=== PATIENT | male | born 1945 | race Caucasian/White ===

== ENCOUNTER → 2017-04-26 | Outpatient (CLI) | payer MEDICARE, OTHER, SELFPAY | PROVIDERS: Visit Provider Urology | DX: C61 Malignant neoplasm of prostate (principal); Z12.5 Encounter for screening for malignant neoplasm of prostate | CPT/HCPCS: 36415; G0103 ==

== ENCOUNTER → 2017-05-03 10:42 | Outpatient (CLI) | payer MEDICARE, OTHER, SELFPAY ==
--- NOTE | 2017-05-03 11:02 | XR_ITS ---
XR knee RT 3V HISTORY: ITS.REASON: ACUTE RT KNEE PAIN ORDERING PHYSICIAN: Jhonny Gillette MD PATIENT AGE: 71 years COMPARISON: None FINDINGS: No fracture or dislocation. No lytic or blastic change. Normal mineralization. There are minimal osteoarthritic changes of the medial compartment and patellofemoral joint. Small clip is present along the distal thigh medially and posteriorly IMPRESSION: Minimal osteoarthritic change, no acute finding
== END ==
PROVIDERS: PCP Family Medicine; Visit Provider Family Medicine
DX: M25.561 Pain in right knee (principal)
CPT/HCPCS: 73562

== ENCOUNTER → 2017-06-09 13:47 | Outpatient (CLI) | payer MEDICARE, OTHER, SELFPAY ==
--- NOTE | 2017-06-09 13:59 | CT_ITS ---
CT abdomen pelvis wo con CLINICAL INDICATION: Right flank pain ITS.REASON: RT FLANK PAIN ORDERING PHYSICIAN: Anthony Lopes MD PATIENT AGE: 71 years COMPARISON: None TECHNIQUE: Axial images obtained with sagittal and coronal reformats. PROCEDURE: Oral Contrast: None IV Contrast: None . FINDINGS: There is a 5 mm noncalcified subpleural nodule in the left lung base posterolaterally along with a calcified subpleural nodule in the left lung base anteriorly and laterally. Fatty liver infiltration. No calcified gallstones. The spleen, adrenal glands, and pancreas are unremarkable. No renal mass, hydronephrosis, renal or ureteral calculi evident. The urinary bladder has an unremarkable appearance. No retroperitoneal adenopathy or mass. No intestinal obstruction, free air, or focal peritoneal inflammatory change evident. There is a given history of appendectomy. No acute bony anomalies. There is a lipoma along the lower anterior chest wall and the right IMPRESSION: No acute abdominal or pelvic findings. No evidence of renal or ureteral calculi. Indeterminate 5 mm left lower lobe nodule. Consider 6 month follow-up.
== END ==
PROVIDERS: Family Provider Family Medicine; PCP Family Medicine; Visit Provider Urology
DX: R10.31 Right lower quadrant pain (principal)
CPT/HCPCS: 74176

== ENCOUNTER → 2017-11-03 10:17 | Outpatient (CLI) | payer MEDICARE, OTHER, SELFPAY ==
[2017-11-03 12:31] LABS: Prostate Specific Ag Screen < 0.1 ng/mL (0.0-4.0)
== END ==
PROVIDERS: Visit Provider Urology
DX: Z12.5 Encounter for screening for malignant neoplasm of prostate (principal); C61 Malignant neoplasm of prostate
CPT/HCPCS: 36415; G0103

== ENCOUNTER → 2018-05-07 15:24 | Outpatient (CLI) | payer MEDICARE, OTHER, SELFPAY ==
--- NOTE | 2018-05-07 15:33 | XR_ITS ---
XR chest 2V HISTORY: ITS.REASON: BRONCHITIS ORDERING PHYSICIAN: Evangelina Gillette MD PATIENT AGE: 72 years COMPARISON: 08/07/2015 FINDINGS: There has been a prior CABG. Normal heart size. The lungs are clear without infiltrates, suspicious nodules, or pleural effusions. No acute bony abnormalities. IMPRESSION: No change with no acute finding
== END ==
PROVIDERS: PCP Family Medicine; Visit Provider Family Medicine
DX: J40 Bronchitis, not specified as acute or chronic (principal)
CPT/HCPCS: 71046

== ENCOUNTER → 2018-05-15 09:00 | Outpatient (CLI) | payer MEDICARE, OTHER, SELFPAY ==
--- NOTE | 2018-05-15 09:03 | CI_ITS ---
Cerebrovascular Exam Indications: 780.4 Dizziness and giddiness. IMPRESSIONS 1. The bilateral vertebral arteries are patent with normal antegrade flow. 2. Study suggests 20-49% stenosis involving the right internal carotid artery. 3. Study suggests less than 20% stenosis. No change from the study of 12-Oct-2009. History: Coronary artery disease. Coronary artery disease. Risk factors: Hypertension. Hyperlipidemia. Carotid duplex study. Complete study and Doppler flow study including spectral analysis, color and mohan scale imaging. Height: Height: 167.6cm. Height: 66in. Weight: Weight: 97.5kg. Weight: 214.6lb. Body mass index: BMI: 34.7kg/m^2. Body surface area: BSA: 2.17m^2. Location: Vascular laboratory. Patient status: Outpatient. Tables: Arterial flow: + +--------+--------+ Location V sys V ed + +--------+--------+ Right CCA - proximal 84.1cm/s 18.1cm/s + +--------+--------+ Right CCA - distal 113cm/s 19.6cm/s + +--------+--------+ Right ECA 145cm/s -------- + +--------+--------+ Right ICA - proximal 86.4cm/s 25.9cm/s + +--------+--------+ Right ICA - mid 64.4cm/s 22cm/s + +--------+--------+ Right ICA - distal 77.8cm/s 19.6cm/s + +--------+--------+ Right vertebral 44.8cm/s -------- + +--------+--------+ Left CCA - proximal 116cm/s 17.3cm/s + +--------+--------+ Left CCA - distal 83.3cm/s 22cm/s + +--------+--------+ Left ECA 121cm/s -------- + +--------+--------+ Left ICA - proximal 91.9cm/s 29.9cm/s + +--------+--------+ Left ICA - mid 80.9cm/s 24.4cm/s + +--------+--------+ Left ICA - distal 83.3cm/s 25.9cm/s + +--------+--------+ Left vertebral 44.8cm/s -------- + +--------+--------+ Velocity ratios: + + + + + + Right, V sys Right, V ed Left, V sys Left, V ed + + + + + + Max ICA/dist CCA 0.76 1.32 1.1 1.36 + + + + + + (Report amended ) Electronically signed by: Hany Rivera [id number]
== END ==
PROVIDERS: PCP Family Medicine; Visit Provider Family Medicine
DX: I65.23 Occlusion and stenosis of bilateral carotid arteries (principal)
CPT/HCPCS: 93880

== ENCOUNTER → 2018-05-31 10:13 | Outpatient (CLI) | payer MEDICARE, OTHER, SELFPAY ==
[2018-05-31 12:57] LABS: Prostate Specific Ag, Diagnost < 0.05 ng/mL (0.0-4.0)
== END ==
PROVIDERS: Visit Provider Urology
DX: C61 Malignant neoplasm of prostate (principal)
CPT/HCPCS: 36415; 84153

== ENCOUNTER → 2018-10-08 09:39 | Outpatient (CLI) | payer MEDICARE, OTHER, SELFPAY ==
[2018-10-08 11:41] LABS: Prostate Specific Ag, Diagnost < 0.05 ng/mL (0.0-4.0)
== END ==
PROVIDERS: Visit Provider Urology
DX: C61 Malignant neoplasm of prostate (principal)
CPT/HCPCS: 36415; 84153

== ENCOUNTER → 2019-04-18 11:02 | Outpatient (CLI) | payer MEDICARE, OTHER, SELFPAY ==
[2019-04-18 13:48] LABS: Prostate Specific Ag, Diagnost 0.05 ng/mL (0.0-4.0)
== END ==
PROVIDERS: Visit Provider Urology
DX: Z85.46 Personal history of malignant neoplasm of prostate
CPT/HCPCS: 36415; 84153

== ENCOUNTER → 2020-04-01 10:25 | Outpatient (CLI) | payer MEDICARE, OTHER, SELFPAY ==
--- NOTE | 2020-04-01 10:32 | XR_ITS ---
PROCEDURE: XR HIP LT 2-3V W/PELVIS CLINICAL INDICATION: ARTHROPATHY Hip pain COMPARISON: No exams were available for comparison FINDINGS: There are mild osteoarthritic changes of the left hip. No fracture or dislocation. No lytic or blastic change. IMPRESSION: Mild osteoarthritis of the left hip Dictated by: Hany Rivera MD 04/01/2020 18:29 Hany Rivera MD in [facility] 04/01/2020 18:29
--- NOTE | 2020-04-01 10:32 | XR_ITS ---
PROCEDURE: XR HIP RT 2-3V W/PELVIS CLINICAL INDICATION: ARTHROPATHY Bilateral hip pain COMPARISON: No exams were available for comparison FINDINGS: There are mild osteoarthritic changes of the right hip. No acute fracture or dislocation. No lytic or blastic change. IMPRESSION: Mild osteoarthritis of the right hip Dictated by: Hany Rivera MD 04/01/2020 18:29 Hany Rivera MD in [facility] 04/01/2020 18:29
== END ==
PROVIDERS: PCP Family Medicine; Visit Provider Family Medicine
DX: M25.552 Pain in left hip (principal); M25.551 Pain in right hip; M12.9 Arthropathy, unspecified
CPT/HCPCS: 73502

== ENCOUNTER → 2020-04-06 10:31 | Outpatient (CLI) | payer MEDICARE, OTHER, SELFPAY ==
--- NOTE | 2020-04-06 10:36 | US_ITS ---
APPROVED REPORT Exam Type: Lower Extremity Segmental Pressures Mandarin Teacher: Charisma Lester CRT Indications Claudication: Limb Pain: Rest Pain: Numbness/Tingling Cold Sensitivity PAD CAD Risk Factors Hypertension Hyperlipidemia Obesity Surgery/Intervention cabg Pressures/Indices Right Indices Left Indices Brachial 142.00 mmHg Brachial 151.00 mmHg Low Thigh 133.00 mmHg 0.88 Low Thigh 143.00 mmHg 0.95 Calf 137.00 mmHg 0.91 Calf 146.00 mmHg 0.97 Ankle(PT) 153.00 mmHg 1.01 Ankle(PT) 158.00 mmHg 1.05 Ankle(DP) 147.00 mmHg 0.97 Ankle(DP) 139.00 mmHg 0.92 Digit 136.00 mmHg 0.90 Digit 129.00 mmHg 0.85 Findings R COY 1.0 L COY 1.0 R TBI 0.9 L COY 0.9 Nl pulses and waveforms Conclusion Normal appearing resting noninvasive lower extremity arterial study. Electronically signed by : Hany Rivera MD 04/06/2020 17:30:02
== END ==
PROVIDERS: PCP Family Medicine; Visit Provider Family Medicine
DX: M79.10 Myalgia, unspecified site (principal); R09.89 Other specified symptoms and signs involving the circulatory and respiratory systems
CPT/HCPCS: 93923

== ENCOUNTER 2020-09-17 08:00 | Outpatient (RCR) | payer MEDICARE, OTHER, SELFPAY ==
--- NOTE | 2020-08-21 10:14 | HMH.PTOPEV ---
PT Outpatient Evaluation Rehab PT Outpatient Evaluation Start: 08/21/20 08:04 Freq: Status: Active Protocol: Document 08/21/20 09:06 LATANYA (Rec: 08/21/20 10:14 PHOSYLWIA [id number]) Electronically Signed By Javon Vicente, PT 08/21/20 09:06 Outpatient Therapy Subjective History Subjective History Pt is 75 yowm who presents with c/o B post hip and low back pain x ~ 8-9 yrs, gradually worse. Pt states, I had prostate cancer and radiation and I swear its been a lot worse sionce that treatment and surgery. Pt also reports c/o worsening LE cramping and neuropathy in B feet and lower legs. He reports long hx of low back pain, but feels worse now with significant increased fatigue over the past year. He also reports hx of poor circulation in LEs. PMH: HTN, CAD with CABG, prostate cancer with prostatectomy and radiation, HL. Chief Complaint Pain,Stiff Symptom Type Sharp Symptoms Relieved By OTC Meds Symptoms Aggravated By Standing,Bending/Stooping, Physical Activity,Walking Prior Functional Limitations None Current Functional Limitations Sleeping,Standing,Recreation Activity,Walking,Bending/ Stooping Symptom Description Constant but Variable Level of pain today (0-10) 5 Pain scale - at its worst (0-10) 10 Lumbopelvic Eval Palapation tenderness bilateral Lumbar/Sacral Palpation Findings Tenderness Lumbar/Sacral Palpation Overall Comment B SI area Accessory Movement L-spine Vertebrae Accessory Movements Central P/A Wilmot that Elicit Symptoms L2 bilateral L3 bilateral L4 bilateral L5 bilateral S1 bilateral Range of Motion Lumbar Spine Active Flexion Range of 0-50 Motion (degrees) Lumbar Spine Active Extension Range of 0-20 Motion (degrees) Left Lumbar Spine Lateral Flexion Active 0-10 Range of Motion (degrees) Right Lumbar Spine Lateral Flexion 0-10 Active Range of Motion (degrees) Manual Muscle Test Bilateral Knee Extension Strength Grade 5 Normal Knee Flexion Strength Grade
== END 2020-09-17 08:05 | disposition home or self-care (01) ==
LOC: PT 08:00
PROVIDERS: PCP Family Medicine; Visit Provider Family Medicine
DX: M25.552 Pain in left hip (principal); M25.551 Pain in right hip; M12.9 Arthropathy, unspecified
CPT/HCPCS: 97010; 97014; 97110; 97140; 97163; G0283

== ENCOUNTER → 2020-11-12 09:31 | Outpatient (CLI) | payer MEDICARE, OTHER, SELFPAY ==
--- NOTE | 2020-11-12 09:34 | CA_ITS ---
APPROVED REPORT EXAM: Comprehensive 2D, Doppler, and color-flow Echocardiogram Veterinary X Ray Operator: Aurelia Lopez RVT Ht: 5 ft 6 in Wt: 220lbs BSA: 2.08 BP: 128/63 mmHg Indications: EDEMA,CAD,CABG,DM,HTN,HLD,SOA,FATIGUE 2D Dimensions LVOT 2.18 cm (M/F) 1.5-2.5 LA Volume 37.10 mL LA Volume Index 17.83 mL/m2 (M/F) 16-34 M-Mode Dimensions RVDd 3.78 cm (0.9-2.6) LA Diam 4.90 cm (1.9-4.0) LVDd 4.39 cm (3.5-5.7) Ao Diam 3.01 cm (2.0-3.7) LVDs 2.86 cm (3.5-5.7) IVSd 0.60 cm (0.6-1.1) PWd 0.84 cm (0.6-1.1) EF (Teich) 64.30% FS 34.90% EDV (Teich) 87.20 mL TAPSE 1.88 (<1.7) ESV (Teich) 31.10 mL LV Diastology E Decel Time 267.00 (160-240 msec) E/A Ratio 0.9 MED E' 8.50 (< 7 cm/sec) E'/MED E' Ratio 8.73 (>14) LAT E' 10.30 (<10 cm/sec) E/LAT E' Ratio 7.20 (>14) Aortic Valve AO Peak GR. 5.00 mmHg Mitral Valve MV E Max Jens. 74.00 (40-130 cm/s) MV A Velocity 82.00 (40-130 cm/s) E/A Ratio 0.90 MV Decel. Time 267.00 (160-240 ms) MV PHT 78.00 ms Pulmonary Valve PV Peak Velocity 69.00 (50-150 cm/s) Tricuspid Valve TR P. Velocity 219.00 cm/s RAP Estimate 10.00 mmHg RVSP 29.10 mmHg Left Ventricle Left atrium is mildly enlarged, left ventricle is normal size, mild concentric left ventricular hypertrophy, visually estimated ejection fraction 55% with no regional wall motion abnormality, grade 1 diastolic dysfunction seen without tissue Doppler evidence of raise left atrial pressure. Right Ventricle Right atrium and right ventricle are normal size and contractility. Aortic Valve Aortic valve is minimally thickened and fibrosed, there is no aortic stenosis or aortic insufficiency. Mitral Valve Mitral valve grossly normal, there is trace mitral regurgitation. Tricuspid Valve Tricuspid grossly normal, there is trace tricuspid regurgitation, tricuspid regurgitation jet velocity is inadequate for calculation of the right ventricular systolic pressure. Pulmonic Valve Pulmonic valve is poorly visualized. Great Vessels Aortic root is normal size. Pericardium No significant pericardial effusion noted. Conclusion 1. Mildly enlarged left atrium, normal left ventricular size, mild concentric left ventricular hypertrophy, visually estimated ejection fraction 55% with no regional wall motion abnormality, grade 1 diastolic dysfunction seen without tissue Doppler evidence of raise left atrial pressure. 2. Trace mitral and tricuspid regurgitation. 3. No significant pericardial effusion noted. Electronically signed by : Karl Cortés, 11/12/2020 14:39:18
== END ==
PROVIDERS: PCP Family Medicine; Visit Provider Family Medicine
DX: I25.10 Atherosclerotic heart disease of native coronary artery without angina pectoris (principal); R60.0 Localized edema
CPT/HCPCS: 93306

== ENCOUNTER → 2020-12-07 09:32 | Outpatient (CLI) | payer MEDICARE, OTHER, SELFPAY | PROVIDERS: PCP Family Medicine; Visit Provider Family Medicine | DX: Z20.822 Contact with and (suspected) exposure to COVID-19 (principal) | CPT/HCPCS: U0003 ==

== ENCOUNTER 2021-01-26 10:00 | Outpatient (RCR) | payer MEDICARE, OTHER, SELFPAY ==
--- NOTE | 2020-11-11 10:27 | HMH.PTOPWND ---
Rehab Outpt Wound Evaluation Rehab OP Wound Evaluation Start: 11/11/20 09:34 Freq: Status: Active Protocol: Document 11/11/20 10:20 LATANYA (Rec: 11/11/20 10:27 PHOSYLWIA [id number]) Electronically Signed By Javon Vicente, PT 11/11/20 10:20 Subjective/History History History Pt is 75 yowm who presents with c/o B LE edema x ~ 1 mo with insidious onset of symptoms. He also reports B lower legs are painful with palpation and presents today with 2+ pitting edema B. He also reports being concerned by B mid-back pain that is sharp and intermittent. He has hx of chronic low back pain, but this pain is much diiferent than his current c/o . He has hx of prostate cancer with prostatectomy and XRT, CAD with CABG x 2v. He reports MD has prescribed several different diuretics which have note relieved the fluid in his legs. 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 Subjective Subjective 2/4 tenderness to palpation on B lower legs with 2+ pittng edema. Lymphedema Eval Classification of Lymphedema Secondary Lymphedema Yes Stemmer's sign Stemmer's Sign no Stage of Lymphedema Lymphedema stages Stage II (Pitting edema, increased fibrosis w/ decreased pitting) Skin Changes Dry Skin Yes Papillomatosis Yes Redness Yes Discoloration of Skin Yes Other Changes Yes Radiation Therapy Has received radiation therapy yes Chemo Therapy Has received chemo therapy no Affected Extremities Areas Affected by Lymphedema/Edema Right Lower Extremity,Left Lower Extremity Manual Lymphatic Drainage Treatment Area MLD Treatment Area Abdomen,Right Lower Extremity, Left Lower Extremity Wound Problems/Impairments Impairments Problems/Impairmments Palpation Tenderness,Impaired Endurance,Impaired Walking,
--- NOTE | 2020-12-29 11:34 | HMH.RHREAS ---
Rehab Reassessment Rehab OP Re-assessment Start: 12/29/20 11:31 Freq: Status: Active Protocol: Document 12/29/20 11:31 LATANYA (Rec: 12/29/20 11:34 LATANYA [id number]) Electronically Signed By Javon Vicente, PT 12/29/20 11:31 Rehab Re-assessment Subjective Subjective Pt reports he has less soreness to touch in his legs and states, They don't feel like they're going to bust anymore. Objective Objective Notes Circumferential Measurements: R LE -6.0 cm total since intial eval. L LE -11.4 cm total since initial eval. Assessment Progress Assessment Progressing as Expected Assessment Notes Pt with improved edema in B LE , only 1+ pitting noted this date. Continues to have some increased fibrotic edema in B LE and mild pain. Patient goals met ST,2,3 Goals Not Met LT,2,3,4,5 Revised Goals none Plan Plan Continue per initial POC. Frequency of Therapy 2 x/wk Duration of therapy 8 wks Time and Billing Re-Eval Time 15 Re-Eval Billing Units 0 PHYSICIAN CERTIFICATION: I certify the specified therapy services for Karson Tripp are required, authorized, and reviewed every 30 days.
== END 2021-01-26 10:05 | disposition home or self-care (01) ==
LOC: PT 10:00
PROVIDERS: PCP Family Medicine; Visit Provider Family Medicine
DX: R60.0 Localized edema (principal)
CPT/HCPCS: 97140; 97163; 97164; 97760

== ENCOUNTER → 2021-02-16 12:45 | Outpatient (CLI) | payer MEDICARE, OTHER, SELFPAY | PROVIDERS: PCP Family Medicine; Visit Provider Nurse Practitioner | DX: Z20.822 Contact with and (suspected) exposure to COVID-19 (principal); U07.1 COVID-19 | CPT/HCPCS: C9803; U0003; U0005 ==

== ENCOUNTER 2021-02-21 07:42 | Outpatient (CLI) | payer MEDICARE, OTHER, SELFPAY ==
[2021-02-21] VITALS (8 sets, daily range): BP systolic 112–159; BP diastolic 62–85; PULSE 59–65; RESP 18; TEMP 36.5–36.6; O2SAT 94–98
== END 2021-02-21 10:40 | disposition home or self-care (01) ==
PROVIDERS: PCP Family Medicine; Visit Provider Family Medicine
DX: U07.1 COVID-19 (principal); Z23 Encounter for immunization
CPT/HCPCS: 96365; 99202; G0463

== ENCOUNTER 2021-02-21 10:37 | Emergency (ER) | payer MEDICARE, OTHER, SELFPAY ==
[2021-02-21 10:47] VITALS: BP 136/67; PULSE 61; RESP 20; TEMP 36.7; O2SAT 99; BMI 32.3
--- NOTE | 2021-02-21 10:55 | HMH.EDUTC ---
[facility] Disposition Clinical Impression: Candidiasis of skin, COVID-19 Disposition: Home, Self-Care Condition on Discharge: Good Instructions: Yeast Infection-Skin, Nystatin Topical Additional Instructions: Use the medication as directed. Make sure you dry off good after you bathe or shower. Continue the other medications that you are on. Follow up with your primary care doctor. GO TO THE ER FOR ANY WORSENING SYMPTOMS OR CONCERNS Prescriptions: Nystatin [Nystatin Cr 100,000 Units/GM 30GM] 1 applicatio TP BID 14 Days #1 gm Transmission Status: Received by [facility] Nystatin [Nystatin Topical Powder 30GM*] 1 applicatio TP BID 10 Days #30 ml Transmission Status: Received by [facility] Referrals: Evangelina Gillette MD [Primary Care Provider] - Time of Disposition: 10:59 Medical Decision Making - Medical Records Medical records reviewed: No: I reviewed the patient's medical records. - Jorje Inquiry Pt receiving controlled substance: No Vital Signs: 02/21/21 10:47 02/21/21 10:59 Temperature 98.0 F 98.0 F Temperature Source Oral Pulse Rate 61 Pulse Rate [Right Brachial] 61 Respiratory Rate 20 18 Blood Pressure 136/67 Blood Pressure [Right Arm] 136/67 Blood Pressure Mean [Right Arm] 90 Blood Pressure Source [Right Arm] Automatic Cuff Blood Pressure Position [Right Arm] Sitting 02 Sat by Pulse Oximetry 99 Oxygen Delivery Method Room Air [facility] HPI - General Stated complaint: rash under lt arm Time Seen by Provider: 02/21/21 10:55 Mode of Arrival: Ambulatory Source of Information: Patient Limitations: No Limitations Description of Symptoms (Recalled from Triage Doc. by RN): rash left arm pit HEENT Symptoms (Recalled from RN notes): No Resp Symptoms (Recalled from RN notes): No Skin Symptoms (Recalled from RN notes): Yes MS Symptoms (Recalled from RN notes): No Functional Status (Recalled from RN notes): yes - History of Present Illness Provider Complaint: He has a rash and irritated area in his left axilla. He currently has covid-19. He is taking several medications. ONe of them is an antibiotic. He is diabetic. He denies any shortness of breath. - Related Data Home Medications Medication Instructions Recorded Confirmed B-complex with vitamin C 1 tab PO .q day each 06/06/17 12/18/18 aspirin 81 mg tablet,delayed 81 mg PO ONCE 06/06/17 12/18/18 release cetirizine 10 mg tablet 5 mg PO ONCE 06/06/17 12/18/18 cholecalciferol (vitamin D3) 50 2,000 unit PO ONCE 06/06/17 12/18/18 mcg (2,000 unit) capsule clopidogrel 75 mg tablet 75 mg PO ONCE 06/06/17 12/18/18 diclofenac sodium 1 % topical gel 2 g TOPICAL QID 06/06/17 12/18/18 diclofenac sodium 100 mg 100 mg PO ONCE 06/06/17 12/18/18 tablet,extended release 24 hr hydrochlorothiazide 12.5 mg capsule 12.5 mg PO ONCE 06/06/17 12/18/18 isosorbide mononitrate 60 mg 60 mg PO QAM 06/06/17 12/18/18 tablet,extended release 24 hr loperamide 2 mg tablet 2 mg PO Q4H 06/06/17 12/18/18 nabumetone 500 mg tablet 500 mg PO BID 06/06/17 12/18/18 nitroglycerin 0.4 mg sublingual 0.4 mg SUBLINGUAL Q5M PRN 06/06/17 12/18/18 tablet omeprazole magnesium 20 mg 20 mg PO ONCE 06/06/17 12/18/18 capsule,delayed release pravastatin 80 mg tablet 80 mg PO QHS 06/06/17 12/18/18 tramadol 37.5 mg-acetaminophen 325 1 tab PO Q4-6H PRN 06/06/17 12/18/18 mg tablet Previous Rx's Medication Instructions Recorded Nystatin [Nystatin Cr 100,000 1 applicatio TP BID 14 Days #1 gm 02/21/21 Units/GM 30GM] Nystatin [Nystatin Topical Powder 1 applicatio TP BID 10 Days #30 ml 02/21/21 30GM*] Allergies Allergy/AdvReac Type Severity Reaction Status Date / Time Penicillins Allergy Intermediate I-RASH Verified 12/18/18 12:50 codeine Allergy Unknown AFFECTS Verified 12/18/18 12:50 HEART - Worker's Comp Is this a Worker's Comp case?: No Is this an H Worker's Comp?: No Is this a Yesika Worker's Comp?: No [facility]
[2021-02-21 10:59] VITALS: BP 136/67; PULSE 61; RESP 18; TEMP 36.7
== END 2021-02-21 10:59 | disposition home or self-care (01) ==
PROVIDERS: Emergency Provider Nurse Practitioner Family; PCP Family Medicine
DX: B37.2 Candidiasis of skin and nail (principal); U07.1 COVID-19; E78.5 Hyperlipidemia, unspecified; I10 Essential (primary) hypertension
CPT/HCPCS: G0463; 96365; 99202

== ENCOUNTER → 2021-07-06 10:01 | Outpatient (CLI) | payer MEDICARE, OTHER, SELFPAY ==
[2021-07-06 11:10] LABS: Alanine Aminotransferase 30 U/L (12-78); Albumin Level 4.2 g/dl (3.5-5.0); Albumin/Globulin Ratio 1.7 (1.1-1.8); Alkaline Phosphatase 78 U/L (38-126); Anion Gap 11.9 mEq/L (5-15); Aspartate Amino Transferase 26 U/L (17-59); Bilirubin,Total 0.5 mg/dl (0.2-1.3); Blood Urea Nitrogen 23 mg/dl (9-20); Calcium 8.9 mg/dl (8.4-10.2); Carbon Dioxide 29 mmol/L (22.0-30.0); Chloride 101 mmol/L (98-107); Estimated Glomerular Filt Rate 82 ml/min (>60); GFR (African American) 100 ML/MIN (>60); Globulin 2.5 g/dL (1.3-3.2); Glucose 103 mg/dl (74-100); Potassium 3.9 mmoL/L (3.5-5.1); Sodium 138 mmol/L (136-145); Total Protein,Serum 6.7 g/dl (6.3-8.2)
== END ==
PROVIDERS: Visit Provider Family Medicine
DX: E11.9 Type 2 diabetes mellitus without complications (principal); R60.0 Localized edema
CPT/HCPCS: 36415; 80053

== ENCOUNTER → 2021-07-13 10:38 | Outpatient (CLI) | payer MEDICARE, OTHER, SELFPAY ==
--- NOTE | 2021-07-13 10:48 | CT_ITS ---
FINAL REPORT TECHNIQUE: Axial CT images were performed from the lung apices through the upper abdomen. Coronal reformats were submitted. This study was performed with techniques to keep radiation doses as low as reasonably achievable (ALARA). Individualized dose reduction techniques using automated exposure control or adjustment of mA and/or kV according to the patient's size were employed. CLINICAL HISTORY: ABNORMAL CT OF CHEST COMPARISON: CT of the abdomen and pelvis dated 06/09/2017 FINDINGS: The patient is status post median sternotomy. There is no axillary adenopathy. There are several borderline mediastinal lymph nodes. There is mild gynecomastia. There is no pleural or pericardial effusion. There is mild emphysema and mild scarring. A calcified granuloma is seen in the left lung base. There is a 4 mm lateral left lower lobe nodule on image 50 which is stable. No other pulmonary mass or suspicious nodule is identified. IMPRESSION: Stable lateral left lower lobe nodule consistent with a benign nodule. Reviewed, Interpreted and Dictated by Zay Gilmore III, MD Transcribed by Maribel Greco Authenticated by Zay Gilmore III, MD on 07/13/2021 02:32:30 PM [facility]
== END ==
PROVIDERS: PCP Family Medicine; Visit Provider Family Medicine
DX: R93.89 Abnormal findings on diagnostic imaging of other specified body structures (principal)
CPT/HCPCS: 71250

== ENCOUNTER → 2022-03-29 09:51 | Outpatient (CLI) | payer MEDICARE, OTHER, SELFPAY ==
--- NOTE | 2022-03-29 09:58 | XR_ITS ---
FINAL REPORT CLINICAL HISTORY: RT HIP PAIN FINDINGS: Right hip Three views were obtained. There is no acute fracture or dislocation. The joint spaces appear normal. No soft tissue abnormality is identified. IMPRESSION: No acute process. Reviewed, Interpreted and Dictated by Evangelina Cantor MD Transcribed by Bernadette Pichardo Authenticated and [facility]
== END ==
PROVIDERS: PCP Family Medicine; Visit Provider Family Medicine
DX: M25.551 Pain in right hip (principal)
CPT/HCPCS: 73502

== ENCOUNTER → 2022-04-20 14:06 | Outpatient (CLI) | payer MEDICARE, OTHER, SELFPAY ==
--- NOTE | 2022-04-20 14:06 | MR_ITS ---
FINAL REPORT CLINICAL HISTORY: back pain. bilateral leg weakness. hx prostate cancer with radiation 9 years ago. urinary incontinence. bilateral leg pain, numbness, and tingling. FINDINGS: Multiplanar MR imaging of the lumbar spine was performed without contrast. On the sagittal T2-weighted images, disc degeneration is seen at multiple levels. The vertebral alignment is normal. There is no evidence of fracture. There is a hemangioma in L3. The conus has an unremarkable appearance. No significant canal stenosis is identified. T11-T12: There is no significant canal stenosis or neural foraminal narrowing. L1-2: An annular bulge is present. There is no significant canal stenosis or neural foraminal narrowing. L2-3: An annular bulge is present. There is no significant canal stenosis or neural foraminal narrowing. L3-4: An annular bulge is present. There is no significant canal stenosis or neural foraminal narrowing. L4-5: There is an annular bulge, facet arthropathy and vertebral osteophytes. There is a right posterolateral disc protrusion. There is moderate right and mild left neural foraminal narrowing. L5-S1: There is an annular bulge and facet arthropathy. There is mild right and moderate left neural foraminal narrowing. IMPRESSION: Multilevel degenerative disc disease with areas of neural foraminal narrowing. Right posterolateral disc protrusion at L4-L5 without significant central canal stenosis. Reviewed, Interpreted and Dictated by Zay Gilmore III, MD Transcribed by Dante Thomas Authenticated and [facility] [place] [place]
--- NOTE | 2022-04-20 14:13 | XR_ITS ---
FINAL REPORT CLINICAL HISTORY: RULE OUT METAL FOREIGN BODY FOR MRI FINDINGS: ORBITS Look up and look down views were obtained. No fracture is identified. The sinuses are clear. No foreign body is identified. IMPRESSION: No acute process. Reviewed, Interpreted and Dictated by Zay Gilmore III, MD Transcribed by Dante Thomas Authenticated and [facility]
== END ==
PROVIDERS: PCP Family Medicine; Visit Provider Orthopaedic Surgery
DX: M54.9 Dorsalgia, unspecified (principal); M54.16 Radiculopathy, lumbar region
CPT/HCPCS: 70200; 72148; 76376

== ENCOUNTER → 2022-08-30 08:38 | Outpatient (POV) | payer MEDICARE, OTHER, SELFPAY | PROVIDERS: Visit Provider Dermatology | DX: Z00.00 Encounter for general adult medical examination without abnormal findings (principal) ==

== ENCOUNTER → 2022-12-06 08:10 | Outpatient (POV) | payer MEDICARE, OTHER, SELFPAY | PROVIDERS: Visit Provider Dermatology | DX: Z00.00 Encounter for general adult medical examination without abnormal findings (principal) ==

== ENCOUNTER → 2023-02-07 12:09 | Outpatient (CLI) | payer MEDICARE, OTHER, SELFPAY ==
--- OUTSIDE RECORDS SUMMARY | 2023-02-07 12:11 | XMS_ITS ---
Care Plan - [facility] Created on: February 07, 2023 Karson Cooney : 1945 Sex: Male Author Name Unknown Address [address] [place] [address] [place] [address] Phone Organization [facility] Address [address] [place] [address] Phone Care Team Providers Care Wool Dyer Name Role Phone Nain PINK, Jim Meyer Primary Care Provider [phone] DONNA GANDARA MD Unavailable [phone] Raimundo Bermudez MD Unavailable [phone]
--- OUTSIDE RECORDS SUMMARY | 2023-02-07 12:11 | XMS_ITS ---
Author Name Unknown Address [address] [place] [address] Phone Organization [facility] Address [address] [place] [address] Phone Care Team Providers Care Outsole Compressor Name Role Phone Jim Gandara MD Primary Care Provider [phone] DONNA GANDARA MD Unavailable [phone] Raimundo Bermudez MD Unavailable [phone] Problems Includes: Active, inactive, and resolved Problems All Visits Onset Date Resolved Date Provider Condition S tatus Lower Back Pain 07/14/2022 Raimundo Bermudez MD Act tom Plan of Treatment Instructions to patient Lose weight Last Documented On 3 8:22AM ; [facility] Lose weight Last Documented On 3 7:58AM ; [facility] Lose weight Last Documented On 3 9:11AM ; [facility] Assessments Includes: Assessments for all patient encounters Findings Encounter Date Overweight Follow Up with Raimundo Bermudez MD 11/24/2022 Instructions Includes: Instructions for all patient encounters Instructions to patient Lose weight Last Documented On 3 8:22AM ; [facility] Lo
--- OUTSIDE RECORDS SUMMARY | 2023-02-07 12:11 | XMS_ITS | Clinical Summary ---
Author Name Unknown Address [address] [place] [place] [address] Phone Organization [facility] , [facility] Address [address] [place] [place] [address] Phone Care Team Providers Care Director Equipment Name Role Phone Jim Gandara MD Primary Care Provider [phone] DONNA GANDARA MD Unavailable [phone] Aidan PINK, Raimundo Ellis Unavailable [phone] Reason for Visit and Chief Complaint The Chief Complaint is: Low back pain Problems Includes: Problems addressed during this encounter and other active Problems Current Visit Onset Date Resolved Date Provider Sarah de león Status Lower Back Pain 07/14/2022 Raimundo Bermudez MD Act tom Plan of Treatment Fall Risk Assessment: This patient has been identified as a fall risk. Balance/gait along with postural blood pressure, vision and home fall hazards have been assessed. Medications have been reviewed, and recommendations made with regard to contributing factors for future falls. Plan of care: Consideration of vitamin D supplementation along with balance and strength training with consideration for formal physical therapy has been discussed with the patient. - Last Documented On 11/28/2022 11:30AM ; [facility] Instructions to patient Lose weight Last Documented On 8:22AM ; [facility], [facility] Assessments Includes: Assessments from this encounter Findings - Overweight - Last Documented On 11/28/2022 11:30AM ; [facility] L4-L5 foraminal stenosis - Last Documented On 11/28/2022 11:30AM ; [facility]
--- OUTSIDE RECORDS SUMMARY | 2023-02-07 12:11 | XMS_ITS | Clinical Summary ---
Author Name Unknown Address [address] [place] [address] [place] [address] Phone Organization [facility] , [facility] Address [address] [place] [place] [address] Phone Care Team Providers Care Floater Operator Name Role Phone Jim Gandara MD Primary Care Provider [phone] DONNA GANDARA MD Unavailable [phone] Aidan PINK, Raimundo Ellis Unavailable [phone] Reason for Visit and Chief Complaint Epidural Steroid Injection Problems Includes: Problems addressed during this encounter and other active Problems All Visits Onset Date Resolved Date Provider Condition S tatus Lower Back Pain 07/14/2022 Raimundo Bermudez MD Act tom Plan of Treatment No Plan of Treatment Recorded Assessments Includes: Assessments from this encounter No Assessments Recorded Medical Equipment - Implanted Devices Includes: Current Devices No Medical Equipment Recorded Medications Includes: Medications discussed during this encounter and other current Medications Current Medications (continue as prescribed) Aspirin 81 MG Oral Tablet Chewable 07/14/2022 Provid er: Diagnosis: Gabapentin 100 MG Oral Capsule 07/14/2022 Provider: Diagnosis: Omeprazole 20 MG Oral Capsule Delayed Release 07/15/19 Provider: Diagnosis:
--- OUTSIDE RECORDS SUMMARY | 2023-02-07 12:12 | XMS_ITS | Clinical Summary ---
Author Name Unknown Address [address] [place] [address] [place] [address] Phone Organization [facility] , [facility] Address [address] [place] [address] Phone Care Team Providers Care District Medical Examiner Name Role Phone Jim Gandara MD Primary Care Provider [phone] DONNA GANDARA MD Unavailable [phone] Aidan PINK, Riamundo Ellis Unavailable [phone] Reason for Visit and Chief [...]
--- OUTSIDE RECORDS SUMMARY | 2023-02-07 12:12 | XMS_ITS | Clinical Summary ---
Author Name Unknown Address [address] [place] [address] Phone Organization [facility] , [facility] Address [address] [place] [address] Phone Care Team Providers Care Manager Office Name Role Phone Jim Gandara MD Primary Care Provider [phone] DONNA GANDARA MD Unavailable [phone] Raimundo Bermudez MD Unavailable [phone] Reason for Visit and Chief [...] with the patient. - Last Documented On 09/27/2022 9:43AM ; [facility], [facility] Patient was seen by myself and Dr. Aidan Welch PA-C. Patient will follow up after we try another epidural injection at L4-L5 last resort potentially could be a foraminotomies for him. - Last Documented On 09/27/2022 9:43AM ; [facility], [facility] Instructions to patient Lose weight Last Documented On 7:58AM ; [facility], [facility] Assessments Includes: Assessments from this encounter
--- OUTSIDE RECORDS SUMMARY | 2023-02-07 12:12 | XMS_ITS | Clinical Summary ---
Author Name Unknown Address [address] [place] [address] [place] [address] Phone Organization [facility] , [facility] Address [address] [place] [address] Phone Care Team Providers Care Household Appliance Repairer Name Role Phone Jim Gandara MD Primary Care Provider [phone] DONNA GANDARA MD Unavailable [phone] Aidan PINK, Raimundo Ellis Unavailable [phone] Reason for Visit and Chief [...]
== END ==
PROVIDERS: PCP Family Medicine; Visit Provider Nurse Practitioner Family
DX: I10 Essential (primary) hypertension; I25.10 Atherosclerotic heart disease of native coronary artery without angina pectoris; E66.9 Obesity, unspecified; Z68.37 Body mass index [BMI] 37.0-37.9, adult; G47.33 Obstructive sleep apnea (adult) (pediatric)
CPT/HCPCS: G0399

== ENCOUNTER → 2023-03-16 13:44 | Outpatient (POV) | payer MEDICARE, OTHER, SELFPAY ==
[2023-03-16 14:19] VITALS: BP 117/60; PULSE 80; RESP 18; O2SAT 94; BMI 36.1
--- NOTE | 2023-03-16 14:42 | EXP.PAIN.OV ---
HPI Data of Consult Patient: new to practice Consult date: 03/16/23 Requesting Physician: Juli Bermudez APRN Primary Care Provider: Evangelina Gillette MD Consult Narrative Reason for consult: Low back pain, bilateral leg pain, shoulder pain History of present illness: Mr. Tripp is a 77 year old male who presents today as a new patient. He is a referral from Dr. Gillette's office. Today he rates his pain a 8 out of 10. Patient states he has been experiencing worsening pain in his low back and legs its been going on for years and progressively worsened the last 3 years. Patient does state he also has pain into his shoulders with radiating symptoms down to his elbows and numbness and tingling in his hands. He states it is an aching, throbbing sensation with occasional sharp shooting pains. Patient does state that occasionally his legs will give out randomly.Patient denies any specific trauma or injury that initially led to his symptoms. 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 Patient has been to a orthospine doctor in the past who was not recommending surgical intervention. Patient has had 3 different injections in his back with only minimal relief lasting approximately 2 weeks. Patient has tried [id number] Tylenol and ibuprofen along with heat and ice and topicals with minimal relief. He does state that he continues to use Voltaren at night to take the edge off in order to help him sleep. Patient has had physical therapy in the past however this made his symptoms worse. Patient has also tried a TENS unit that does help some however it is only temporary. Patient does state the pain interferes with his ability perform activities of daily living such as cooking and cleaning. He has continued to do home exercise and stretching techniques for longer than 12 weeks with minimal improvement. Patient does walk daily and is very active however he frequently has to sit and take multiple breaks due to his worsening pain. Patient is currently managed with tramadol 37.5 mg 3 times a day. He denies any side effects from this medication. He does state that he has tried gabapentin in the past however he could only tolerate taking it mostly at night due to the increased drowsiness. Patient does have significant comorbidities of diabetes, obstructive sleep apnea and uses a CPAP, prostate cancer, cardiac history. 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 He states he is interested in any help we may be able to provide. CC: Juli Bermudez APRN [facility] Disclaimer: The information contained in this section may have been updated after the patient was seen, as this information can be updated by other users. Medical History Bilateral cataracts Prostate cancer Surgical History History of appendectomy Status post double vessel coronary artery bypass Family History Other Cancer Coronary artery disease Hypertension Stroke Social History (Updated 03/16/23 @ 13:55 by Tierra Goldman RN) Smoking Status: Never smoker alcohol intake: never substance use type: denies use current occupational status: retired Travel in the last 8 weeks: None caffeine: No Review of Systems Review of Systems Review of systems:: pertinent systems reviewed and negative unless documented below Review of systems (narrative): Review of Systems: General: No recent weight changes, no fever, no sleep disturbances Respiratory: No cough, no shortness of air, no recurring pulmonary infections Cardiovascular/peripheral vascular: No chest pain, no palpitations, no edema, no shortness of breath Gastrointestinal: No new onset incontinence, normal bowel movements reported Genitourinar
== END ==
PROVIDERS: PCP Family Medicine; Visit Provider Nurse Practitioner Family
DX: G89.4 Chronic pain syndrome; M54.50 Low back pain, unspecified; M25.511 Pain in right shoulder; M25.512 Pain in left shoulder; M54.12 Radiculopathy, cervical region; M51.16 Intervertebral disc disorders with radiculopathy, lumbar region
CPT/HCPCS: 99202; G0463

== ENCOUNTER → 2023-04-13 08:51 | Outpatient (POV) | payer MEDICARE, OTHER, SELFPAY ==
--- NOTE | 2023-04-13 09:54 | EXP.PAIN.SOA ---
[facility] Pain Management SOAP Note Subjective:: Patient is a pleasant 77-year-old male who presents today for 1 month follow-up. We are currently treating the patient for degenerative disc disease of lumbar spine with lumbar radiculopathy symptoms, chronic pain syndrome, shoulder pain, cervical radiculopathy symptoms. Today he rates his pain a 6 out of 10. Patient denies any new trauma or injury. He states from our last visit where he was sent for the psychological evaluation that he did schedule this for after the first of the year. Patient states he has had a lot going on with appointments and has actually had 3 funerals he is attended over the last month. Patient states his pain today is continued in his low back along with numbness and tingling down his entire right arm. Patient states this is a chronic issue with the right side being the worst side. He states he will occasionally have the same symptoms in the left but is not as frequently. 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 Patient states in the past he has been tested for carpal tunnel and that it was negative. Patient states that he has not had any updated imaging of his cervical spine. Patient is currently managed with tramadol 37.5 mg 3 times a day from an outside provider. He denies any side effects from this medication. His Jorje has been reviewed and is appropriate. Review of Systems: General: No recent weight changes, no fever, no sleep disturbances Respiratory: No cough, no shortness of air, no recurring pulmonary infections Cardiovascular/peripheral vascular: No chest pain, no palpitations, no edema, no shortness of breath Gastrointestinal: No new onset incontinence, normal bowel movements reported Genitourinary: No new onset incontinence Musculoskeletal: Neck pain, right arm numbness/weakness Psychiatric: [Normal mood/affect] Neurological: [Denies weakness in extremities], [denies balance issues] Objective:: Physical Exam: General: Alert and oriented x3, no acute distress, pleasant and cooperative Lungs: Respirations even and unlabored, symmetrical chest expansion Eyes: PERRL Musculoskeletal: Flexion and extension of cervical [spine] somewhat guarded secondary to pain, [antalgic gait noted] Neurological: Speech clear, no gross sensory deficit Assessment:: Degenerative disc disease of lumbar spine with lumbar radiculopathy symptoms, neck pain with cervical radiculopathy symptoms, shoulder pain, chronic pain syndrome Plan:: Patient continues to experience significant numbness and tingling with pain in his upper extremities with limited range of motion of his cervical spine. I have discussed with the patient that I will order x-ray imaging as well as MRI without contrast of his cervical spine. I have reviewed over the risk and benefits of the intrathecal pain pump trial with the patient and counseled him that there is no villalobos for his psychological evaluation and that we will follow-up with him regarding this option once he does complete his evaluation next month. Patient will return to clinic in 6 weeks for reevaluation of symptoms and plan of care. Patient has been instructed to contact the clinic with any concerns before the next appointment. Dr. Patel has reviewed this note and agrees with this plan of care. This note was dictated using voice recognition software and make contain errors or omissions. [facility] Disclaimer: The information contained in this section may have been updated after the patient was seen, as this information can be updated by other users. Medical History Bilateral cataracts Prostate cancer Surgical History History of appendectomy Status post double vessel coronary artery bypass Family History Other Cancer Coronary artery disease Hyper
[2023-04-13 10:38] VITALS: BP 109/60; PULSE 64; RESP 18; O2SAT 98; BMI 35.8
== END ==
PROVIDERS: PCP Family Medicine; Visit Provider Nurse Practitioner Family
DX: M51.16 Intervertebral disc disorders with radiculopathy, lumbar region (principal); G89.4 Chronic pain syndrome; M54.12 Radiculopathy, cervical region; M25.519 Pain in unspecified shoulder
CPT/HCPCS: 99212; G0463

== ENCOUNTER → 2023-04-13 09:42 | Outpatient (CLI) | payer MEDICARE, OTHER, SELFPAY ==
--- NOTE | 2023-04-13 09:48 | XR_ITS ---
FINAL REPORT CLINICAL HISTORY: NECK PAIN FINDINGS: CERVICAL SPINE Six views demonstrate no acute fracture. The disc spaces are well preserved. There is mild anterior osteophyte formation at C5-6 and C6-7. The neural foramina are adequately patent. There is no malalignment. IMPRESSION: No acute process. Reviewed, Interpreted and Dictated by Micky Tran MD Transcribed by Bernadette Pichardo Authenticated and [facility]
== END ==
PROVIDERS: PCP Family Medicine; Visit Provider Anesthesiology
DX: M54.2 Cervicalgia (principal); R20.2 Paresthesia of skin
CPT/HCPCS: 72050; 99212; G0463

== ENCOUNTER 2023-05-10 08:00 | Outpatient (RCR) | payer MEDICARE, OTHER, SELFPAY ==
--- NOTE | 2023-03-20 08:54 | HMH.PTOPEV ---
PT Outpatient Evaluation Rehab PT Outpatient Evaluation Start: 03/20/23 07:54 Freq: Status: Active Protocol: Document 03/20/23 08:30 LYDIA (Rec: 03/20/23 08:54 LYDIA [id number]) E-signed By Raymon Christianson, PT Outpatient Therapy Subjective History Subjective History Pt reports h/o chronic LBP for 'many years, but it's gotten worse over the last couple.' Pt reports MRI of lumbar spine revealed multiple level DDD, and disc protrusion at L4-5. Pt reports midline LBP with referred pain into paraspinals bilaterally, and down into b/ l hips/Legs. PMH: HTN, DM New diagnosis of cancer in past 12 No months? Chief Complaint Pain,Stiff Symptom Type Ache,Throb,Sharp,Dull,Stabbing Symptoms Relieved By Rest/Positioning,Heat, Prescription Meds Symptoms Aggravated By Sitting,Standing,Bending/ Stooping,Walking,Lifting Prior Functional Limitations Lifting,Housework,Standing, Sitting,Recreation Activity Current Functional Limitations Lifting,Housework,Standing, Sitting,Walking,Bending/ Stooping Symptom Description Constant but Variable Level of pain today (0-10) 6 Pain scale - at its best (0-10) 6 Pain scale - at its worst (0-10) 8 Lumbopelvic Eval Posture Thoracic Spine Posture Standing Position Flattened Lumbar Spine Posture Standing Position Flattened Assistive device Assistive Devices None / NA Gait Observation General Gait Pattern Observation Antalgic Gait Palapation tenderness bilateral lumbar spinal tenderness Yes: 3/4 paraspinal tenderness Yes: 3/4 buttock tenderness Yes: 2-3/4 Lumbar/Sacral Palpation Findings Tenderness,Muscle Guarding Accessory Movement L-spine Vertebrae Accessory Movements Central P/A Painter that Elicit Symptoms L2 bilateral L3 bilateral L4 bilateral L5 bilateral Range of Motion Lumbar Spine Active Flexion Range of 0-50 Motion (degrees) Lumbar Spine Active Extension Range of 0-10 Motion (degrees) Left Lumbar Spine Lateral Flexion Active 0-15 Range of Motion (degrees) Right Lumbar Spine Lateral Flexion 0-15 Active Range of Motion (degrees) Lumbar Spine ROM Limitations Soft Tissue Tightness,Pain Manual Muscle Test Bilateral Knee Extension Strength Grade 5 Normal Knee Flexion Strength Grade 5 Normal Hip Flexion Strength Grade 4- Good- Hip Abduction Strength Grade 4- Good- Hip Adduction Strength Grade 5 Normal Hip External Rotation Strength Grade 4 Good Hip Internal Rotation Strength Grade 4 Good Extensor Hallucis Longus Strength Grade 5 Normal Ankle Dorsiflexion Strength Grade 4 Good Gastronemius/Soleus Strength Grade 4 Good Special Tests Hip Piriformis Test Negative Left,Negative Right Sciatic Nerve Tension Test Negative Left,Negative Right Reverse Sciatic Nerve Tension Test Negative Left,Negative Right Lumbar Long [place] Distraction Test/Manual Positive Traction Oswestry Index Section 1 Pain Intensity The pain comes and goes and is severe Section 2 Personal Care (Washing,Dresing) increase the pain, but I manage not to change my way of doing it Section 3 Lifting lifting heavy weights off the floor, but I can manage if they are Section 4 Walking I cannot walk more than 1/4 mile without increasing pain Section 5 Sitting Pain prevents me from sitting for more than one hour Section 6 Standing I cannot stand more than 1/2 hour without increasing pain Section 7 Sleeping Because of my pain, my normal night's sleep is less than 4 hours Section 8 Social Life Pain has restricted my social life and I do not go out often Section 9 Traveling I get extra pain while traveling which compels me to seek alternate fo Section 10 Changing Degreee of Pain My pain is gradually getting worse Score and Risk Level Oswestry Sc 31 Oswestry Risk Level Severe Disability Outpatient Therapy Assessment Impairments Problems/Impairmments Palpation Tenderness,Impaired Range of Motion,Impaired Strength,Impaired Gait Pattern ,Impaired Walking,Impaired Standing,Impaired Sitting, Impaired Lifting,Impaired Household Care,Subjective C/O Pain,Impaired Self Care/Self Management Prognosis Rehab Potential Good Clinical Impression Consistent with Diagnosis Yes Short Term Goals Number of Weeks 4 Decreased Palpation Tenderness Yes: 1-2/4 lumbar mm Increase Range of Motion Yes: 50-75% of WFL LUMBAR AROM Increase Strength Yes: 4/5 B/L LE MM Increase Ability to Walk Yes: 15MIN Increase Ability to Stand Yes: 15MIN Increase Ability to Sit Yes: 15MIN Improve Ability For Household Care Yes: 15MIN Improve Oswestry Score Yes: 22-25 Decrease Subjective C/O Pain Yes: 4/10 W/ABOVE ACTIVITIES Patient to be Ind w/ HEP Yes Half-Way Goals Number of Weeks 6-8 Decreased Palpation Tenderness Yes: 0-1/4 LUMBAR MM Increase Range of Motion Yes: WFL LUMBAR AROM Increase Strength Yes: 4+-5/5 B/L LE MM Improve Gait Pattern without Assistive Yes: WFL Device Increase Ability to Walk Yes: 30MIN Increase Ability to Stand Yes: 30MIN Increase Ability to Sit Yes: 30MIN Improve Ability For Household Care Yes: 30MIN Improve Oswestry Score Yes: 10-12 Decrease Subjective C/O Pain Yes: 0-2/10 W/ABOVE ACTIVITIES Patient to be Ind w/ Advanced HEP Yes Outpatient Therapy Plan of Care Treatment Plan May Include Therapeutic Exercise Including Home Yes Exercise Program Manual Therapy Techniques Yes Neuromuscular Re-education Yes Therapeutic Activities to Return to Yes Previous Functional/Work Level Gait Training Yes ADL/Self Care Education Yes Mechanical Traction Yes Dry Needling Yes Thermal Modalities Yes Electrical Stimulation Yes Ultrasound/Phonophoresis Yes Orthotics/Bracing/Splinting Yes Eval/Re-Eval Yes Frequency Times per week 2-3 Duration Number of Weeks 6-8 Addendums This patient is a candidate for social No or vocational rehab? Patient/Guardian verbally acknowledges Yes understanding of treatment program and consents to further treatment? Patient/Guardian verbally acknowledges Yes understanding of diagnosis, prognosis and goals for treatment? Eval Complexity PT Charges 42412 - Moderate Complexity Shoulder/Elbow Eval Shoulder Objective Measurements Elbow Objective Measurements PHYSICIAN CERTIFICATION: I certify the specified therapy services for Karson Tripp are required, authorized, and reviewed every 30 days.
--- NOTE | 2023-05-03 08:15 | HMH.RHREAS ---
Rehab Reassessment Rehab OP Re-assessment Start: 03/20/23 07:54 Freq: Status: Active Protocol: Document 05/03/23 08:01 PATRIZIAMARIA (Rec: 05/03/23 08:14 PATRIZIAMARIA [id number]) E-signed By Raymon Christianson, PT Oswestry Index Section 1 Pain Intensity The pain comes and goes and is severe Section 2 Personal Care (Washing,Dresing) my way of washing or dressing even though it causes some pain Section 3 Lifting I can only lift very light weights at most Section 4 Walking I cannot walk more than 1/4 mile without increasing pain Section 5 Sitting Pain prevents me from sitting for more than one hour Section 6 Standing I cannot stand more than 10 minutes without increasing pain Section 7 Sleeping Because of my pain, my normal night's sleep is less than 4 hours Section 8 Social Life Pain has no significant effect on my social life apart from limiting Section 9 Traveling I get extra pain while traveling, but it does not compel me to seek al Section 10 Changing Degreee of Pain My pain is gradually getting worse Score and Risk Level Oswestry Sc 31 Oswestry Risk Level Severe Disability Rehab Re-assessment Subjective Subjective Pt reports 6/10 LBP with referred pain into Left hip/ glut mm area on VAS, overall pt reports 'I really don't feel how this is helping.' Pt has been non-compliant w/POC, missed all skilled PT appts over last 20 days. Objective Objective Notes AROM: LUMBAR SPINE FLX 0-75, EXT 0-20, R SB 0-15, L SB 0-22 MMT: B/L HIP FLX 5/5, B/L KNEE EXT 5/5, B/L KNEE FLX 4+/5, B /L DF 5/5, B/L HIP ABD 4/5 TTP: B/L LUMBAR PARASPINALS 2- 3/4, B/L GLUT MED/MAX MM 2/4 Assessment Progress Assessment Progressing as Expected Assessment Notes Pt exhibits siginificant improvement in lumbar AROM, bilateral LE strength, however TTP remains relatively unchanged Patient goals met STG'S 11/07, LTG'S 08/09 Goals Not Met STG'S 07/08, LTG'S 11/08 Plan Plan Pt to continue w/skilled P.T. to make further improvements in ROM, strength, TTP, and gait to allow for optimal function Frequency of Therapy 1-2x/wk Duration of therapy 3-5wks Time and Billing Re-Eval Time 12 Re-Eval Billing Units 1 PHYSICIAN CERTIFICATION: I certify the specified therapy services for Karson Tripp are required, authorized, and reviewed every 30 days.
== END 2023-05-10 09:00 | disposition home or self-care (01) ==
LOC: PT 08:00
PROVIDERS: PCP Family Medicine; Visit Provider Family Medicine
DX: M54.50 Low back pain, unspecified (principal); G89.29 Other chronic pain
CPT/HCPCS: 97010; 97014; 97035; 97110; 97163; 97164; G0283

== ENCOUNTER 2023-05-15 15:05 | Outpatient (CLI) | payer MEDICARE, OTHER, SELFPAY ==
--- NOTE | 2023-05-15 15:07 | MR_ITS ---
FINAL REPORT CLINICAL HISTORY: NECK PAIN WITH BILATERAL EXTREMITY NUMBNESS. 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 FINDINGS: Multiplanar MR imaging of the cervical spine was performed without contrast. On the sagittal T2-weighted images, disc degeneration is seen throughout. There is no evidence of fracture. There is mild anterolisthesis of C3 on C4 and C4 on C5. The cervical spinal cord has an unremarkable appearance without evidence of mass, edema or syrinx. No significant canal stenosis is identified. The cervicomedullary junction is normal. C2-3: There is no significant canal stenosis or neural foraminal narrowing. C3-4: Annular disc bulge with uncovertebral osteophytes. There is moderate bilateral neuroforaminal narrowing. C4-5: There is an annular disc bulge without significant canal stenosis or neural foraminal narrowing. C5-6: Disc osteophyte complex with mild right neuroforaminal narrowing. C6-7: There is an annular disc bulge without significant canal stenosis or neural foraminal narrowing. C7-T1: Annular disc bulge and uncovertebral osteophytes with mild right neuroforaminal narrowing. T1-2: Unremarkable. IMPRESSION: Multilevel degenerative disc disease with moderate bilateral neuroforaminal narrowing at C3-4. Reviewed, Interpreted and Dictated by Zay Gilmore III, MD Transcribed by Susan Schroeder Authenticated and [facility]
== END 2023-05-15 23:59 ==
LOC: RAD 15:05
PROVIDERS: PCP Family Medicine; Visit Provider Nurse Practitioner Family
DX: M54.2 Cervicalgia (principal); R20.0 Anesthesia of skin
CPT/HCPCS: 72141; 76376

== ENCOUNTER → 2023-05-25 08:09 | Outpatient (POV) | payer MEDICARE, OTHER, SELFPAY ==
--- NOTE | 2023-05-25 08:54 | EXP.PAIN.SOA ---
[facility] Pain Management SOAP Note Subjective:: Patient is a pleasant 77-year-old male who presents today for cervical imaging follow-up of cervical CT. We are currently treating the patient for degenerative disc disease of cervical and lumbar spine with cervical and lumbar radiculopathy symptoms, chronic pain syndrome, shoulder pain. Today he rates his pain a 7 out of 10. Patient denies any new trauma or injury. He states he continues to have significant pain in his neck with radiating symptoms down his entire right arm. Patient does state he also has into his left arm however it is not as constant. Patient describes the sensations as a burning, achy sensation with burning sensations and numbness and tingling to his fingers. Patient states he always has numbness to his index finger and middle finger and he will occasionally have to his thumb. Patient states that he has trouble grasping objects and feels like there is additional weakness. He states that is affecting his sleeping and ability to perform activities of daily living such as cooking and cleaning. Patient has been tested for carpal tunnel and it was negative. Patient is currently managed with tramadol 37.5 mg 3 times a day from an outside provider. His Jorje has been reviewed and is appropriate. Review of Systems: General: No recent weight changes, no fever, no sleep disturbances Respiratory: No cough, no shortness of air, no recurring pulmonary infections Cardiovascular/peripheral vascular: No chest pain, no palpitations, no edema, no shortness of breath Gastrointestinal: No new onset incontinence, normal bowel movements reported Genitourinary: No new onset incontinence Musculoskeletal: Neck pain, bilateral arm pain Psychiatric: [Normal mood/affect] Neurological: [Denies weakness in extremities], [denies balance issues] Objective:: Physical Exam: General: Alert and oriented x3, no acute distress, pleasant and cooperative Lungs: Respirations even and unlabored, symmetrical chest expansion Eyes: PERRL Musculoskeletal: Flexion and extension of cervical [spine] somewhat guarded secondary to pain, [antalgic gait noted] Neurological: Speech clear, no gross sensory deficit Assessment:: Degenerative disc disease of cervical and lumbar spine with cervical and lumbar radiculopathy symptoms, chronic pain syndrome, shoulder pain Plan:: Patient is experiencing significant pain in his neck with radiating symptoms into his upper extremities and numbness and tingling. I have discussed with the patient that he may benefit from a cervical epidural steroid injection. Risk and benefits were discussed with the patient and he would like to proceed forward with this plan of care. Patient is not on any blood thinners. Patient's imaging did show multilevel disc bulge, bone spurs and narrowing. I will also order the patient a compounded cream. Patient will be scheduled for a FABY C5-6 under fluoroscopy. Patient has been instructed to contact the clinic with any concerns before the next appointment. Dr. Patel has reviewed this note and agrees with this plan of care. This note was dictated using voice recognition software and make contain errors or omissions. [facility] Disclaimer: The information contained in this section may have been updated after the patient was seen, as this information can be updated by other users. Medical History Bilateral cataracts Prostate cancer Surgical History History of appendectomy Status post double vessel coronary artery bypass Family History Other Cancer Coronary artery disease Hypertension Stroke Social History (Updated 04/27/23 @ 08:19 by Radha Barroso) Smoking Status: Former smoker alcohol intake: never substance use type: denies use current occupational status: retired Travel in the last 8 weeks: None household members: spouse housing: house marital status: caffeine: No
[2023-05-25 11:13] VITALS: BP 148/70; PULSE 74; RESP 18; O2SAT 93; BMI 36.3
== END ==
LOC: SC.PAIN 08:10
PROVIDERS: PCP Family Medicine; Visit Provider Nurse Practitioner Family
DX: M50.122 Cervical disc disorder at C5-C6 level with radiculopathy (principal); M51.16 Intervertebral disc disorders with radiculopathy, lumbar region; G89.4 Chronic pain syndrome; M25.519 Pain in unspecified shoulder
CPT/HCPCS: 99212; G0463

== ENCOUNTER 2023-06-13 07:19 | Day surgery (SDC) | payer MEDICARE, OTHER, SELFPAY ==
[2023-06-13 08:11] VITALS: BP 154/68; PULSE 64; RESP 18; TEMP 36.4; O2SAT 97; BMI 36.3
[2023-06-13] MEDS: methylPREDNISolone ACETATE 80MG/ML VIAL 80 MG (08:33)
[2023-06-13 08:34] VITALS: BP 126/81; PULSE 69; RESP 18; O2SAT 95
[2023-06-13 08:36] VITALS: BP 126/81; PULSE 72; RESP 18; O2SAT 96
[2023-06-13 08:40] VITALS: BP 150/69; PULSE 70; RESP 18; O2SAT 97
--- NOTE | 2023-06-13 08:41 | P.PCN_ITS ---
Procedure Date: 06/13/23 Time: 08:20 Anesthesiologist:: Carter Dixon CRNA Complications:: None Pre-procedure Diagnosis:: Degenerative disc cervical spine multilevels. Cervical radiculopathy. Post-procedure Diagnosis:: Same. Indications for Procedure:: Patient is a pleasant 77-year-old male comes our clinic today for cervical epidural steroid injection. Patient reports posterior cervical neck pain as well as bilateral arm radicular symptoms. He rates his pain 7/10. Procedure Details:: Procedure:Cervical epidural steroid injection Informed consent was obtained and the risks and benefits of the procedure were explained to the patient. The patient was taken to the procedure room and noninvasive monitors placed, including noninvasive blood pressure cuff and pulse oximeter. The neck was prepped using Chloraprep as a cleansing solution. The C6- C7 interspace was viewed using fluroscopy. The skin and subcutaneous tissues were anesthetized using lidocaine 1.5% and a 25-gauge needle. After this an 18- gauge Touhy epidural needle was placed into the C6-C7 interspace under fluroscopy guidance and advanced using loss of resistance to air until the epidural space was encountered. After confirmation of needle placement in the epidural space using contrast dye, a solution containing normal saline, 2 mL and Depo-Medrol 80 mg was incrementally injected into the cervical epidural space.~ The patient tolerated the procedure well with no complications. The patient was observed in the Pain Clinic and then discharged home neurologically intact. Plan and Disposition:: Patient was discharged without incident.
[2023-06-13] MEDS: IOPAMIDOL-200 (41%);10ML VIAL 10 ML IV (08:49)
== END 2023-06-13 08:40 | disposition home or self-care (01) ==
PROVIDERS: PCP Family Medicine; Visit Provider Nurse Anesthetist, Certified Registered
DX: M50.123 Cervical disc disorder at C6-C7 level with radiculopathy (principal)
CPT/HCPCS: 62321; J1040; Q9966

== ENCOUNTER 2023-06-23 13:44 | Outpatient (CLI) | payer MEDICARE, OTHER, SELFPAY ==
--- NOTE | 2023-06-23 13:51 | CT_ITS ---
FINAL REPORT TECHNIQUE: Thin section axial images were obtained through the lungs using a low-dose technique per lung cancer screening protocol. Reconstruction images were obtained using the axial data. Exam was performed using dose reduction technique. CLINICAL HISTORY: H/O TOBACCO USE COMPARISON: CT chest 07/13/2021 FINDINGS: 77-year-old male, former smoker quit 20 years ago, [id number] history. CTDLvol: 2.9 DLP: 98.99 Former smoker 32 pack year history Lungs: No acute pulmonary abnormality. There is a 5 mm left lower lobe nodule seen on image #55, which is stable since the prior CT of June 2021. Lymph nodes: There are borderline in size right paratracheal and AP window nodes, which are stable since the prior CT. Mediastinum: Heart size is normal. Pleura/pericardium: No pleural or pericardial effusion. Other: No acute abnormality in the upper abdomen. IMPRESSION: 5 mm left lower lobe nodule, stable since the prior CT of June 2021. Lung RADS: 1 Recommendation: 12-month follow-up LDCT Reviewed, Interpreted and Dictated by Georgia Peterson MD Transcribed by Falguni Leo Authenticated and [facility]
== END 2023-06-23 23:59 ==
PROVIDERS: PCP Family Medicine; Visit Provider Family Medicine
DX: Z87.891 Personal history of nicotine dependence (principal)
CPT/HCPCS: 71271

== ENCOUNTER 2023-06-28 08:37 | Outpatient (POV) | payer MEDICARE, OTHER, SELFPAY ==
[2023-06-28 09:14] VITALS: BP 131/62; PULSE 102; RESP 18; O2SAT 97; BMI 36.1
--- NOTE | 2023-06-28 09:16 | A.OFFVIS_ITS ---
[facility] Pain Management SOAP Note Subjective:: Patient is a pleasant 78-year-old male who presents today for follow-up of cervical epidural steroid injection C6-C7 on 06/13/2023. We are currently treating the patient for degenerative disc disease of cervical and lumbar spine with cervical and lumbar radiculopathy symptoms, chronic pain syndrome, shoulder pain, lumbar facet arthropathy. Today he rates his pain an 8 out of 10. Patient states that he really only noticed a few days of improvement following this injection. He states that it did ease off some of the aching sensation where it was more manageable. Patient states today that his entire right hand is completely numb and back to its baseline. He does also state that he is also having additional pain in his low back and hips. Patient denies any radiating symptoms into his legs. He does state this is an aching, throbbing sensation that is worse with certain movements or positions such as twisting or bending. He does state the pain interferes with his ability perform activities of daily living such as cooking and cleaning. Patient is interested in any help we may be able to provide. He is currently managed with tramadol from an outside provider. His Jorje has been reviewed and is appropriate. Review of Systems: General: No recent weight changes, no fever, no sleep disturbances Respiratory: No cough, no shortness of air, no recurring pulmonary infections Cardiovascular/peripheral vascular: No chest pain, no palpitations, no edema, no shortness of breath Gastrointestinal: No new onset incontinence, normal bowel movements reported Genitourinary: No new onset incontinence Musculoskeletal: Low back pain, hip pain Psychiatric: [Normal mood/affect] Neurological: [Denies weakness in extremities], [denies balance issues] Objective:: Physical Exam: General: Alert and oriented x3, no acute distress, pleasant and cooperative Lungs: Respirations even and unlabored, symmetrical chest expansion Eyes: PERRL Musculoskeletal: Flexion and extension of lumbar [spine] somewhat guarded secondary to pain, [antalgic gait noted] positive Kemps test Neurological: Speech clear, no gross sensory deficit Assessment:: Degenerative disc disease of cervical and lumbar spine with cervical and lumbar radiculopathy symptoms, chronic pain syndrome, shoulder pain, lumbar facet arthropathy Plan:: Patient is experiencing worsening pain in his low back with limited range of motion and a positive Kemps test. Patient did have multilevel lumbar facet arthropathy on his last lumbar MRI. I have discussed with patient that he may benefit from a lumbar medial branch block. Risk and benefits were discussed with patient and he would like to proceed forward with this plan of care. Patient is currently on blood thinners and will have to stop this medication prior to this injection. We will reach out to Dr. Gillette's office to confirm he can stop his Plavix. 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 Patient will be scheduled for a lumbar medial branch block bilaterally L4-L5 and L5-S1 under fluoroscopy. Patient has been instructed to contact the clinic with any concerns before the next appointment. Dr. Patel has reviewed this note and agrees with this plan of care. This note was dictated using voice recognition software and make contain errors or omissions. [facility] Disclaimer: The information contained in this section may have been updated after the patient was seen, as this information can be updated by other users. Medical History Bilateral cataracts Prostate cancer Surgical History History of appendectomy Status post double vessel coronary artery bypass Family History Other Cancer Coronary artery disease Hypertension Stroke Social History Smoking Status: Former smoker alcohol intake: never substance use type: denies use current occupational status: retired Travel in the last 8 weeks: None household members: spouse housing: house marital status: caffeine: No
== END 2023-06-28 23:59 ==
PROVIDERS: PCP Family Medicine; Visit Provider Nurse Practitioner Family
DX: M50.123 Cervical disc disorder at C6-C7 level with radiculopathy (principal); M51.16 Intervertebral disc disorders with radiculopathy, lumbar region; G89.4 Chronic pain syndrome; M25.519 Pain in unspecified shoulder; M47.26 Other spondylosis with radiculopathy, lumbar region
CPT/HCPCS: 99212; G0463

== ENCOUNTER 2023-07-12 09:59 | Outpatient (POV) | payer MEDICARE, OTHER, SELFPAY ==
--- NOTE | 2023-07-12 11:13 | EXP.PAIN.SOA ---
[facility] Pain Management SOAP Note Subjective:: Patient is a pleasant 78-year-old male who presents today for follow-up. We are currently treating the patient for degenerative disc disease of cervical and lumbar spine with cervical and lumbar radiculopathy symptoms, chronic pain syndrome, shoulder pain, lumbar facet arthropathy. Today he rates his pain an 8 out of 10. He does state today that his neck is really starting to aggravate him again. Patient previously had a cervical epidural that he stated only lasted a few days however may have given more than 50% relief. He states today that those few days he was able to do more activity and felt overall more functional. He states today that he is experiencing more aching throbbing sensation in his neck's with complete numbness of his right hand. He states the pain is interfering with his ability perform activity of daily living such as cooking and cleaning. He does also state that he is starting to have a little bit more pain in his low back and hips. He does state that his neck symptoms are worse than his low back currently. He is interested in repeating injections. He is currently managed with tramadol from an outside provider. His Jorje has been reviewed and is appropriate. Review of Systems: General: No recent weight changes, no fever, no sleep disturbances Respiratory: No cough, no shortness of air, no recurring pulmonary infections Cardiovascular/peripheral vascular: No chest pain, no palpitations, no edema, no shortness of breath Gastrointestinal: No new onset incontinence, normal bowel movements reported Genitourinary: No new onset incontinence Musculoskeletal: Neck pain, upper arm pain, right hand numbness Psychiatric: [Normal mood/affect] Neurological: [Denies weakness in extremities], [denies balance issues] Objective:: Physical Exam: General: Alert and oriented x3, no acute distress, pleasant and cooperative Lungs: Respirations even and unlabored, symmetrical chest expansion Eyes: PERRL Musculoskeletal: Flexion and extension of cervical [spine] somewhat guarded secondary to pain, [antalgic gait noted] positive Spurling's test Neurological: Speech clear, no gross sensory deficit Assessment:: Degenerative disc disease of cervical and lumbar spine with cervical and lumbar radiculopathy symptoms, chronic pain syndrome, shoulder pain, lumbar facet arthropathy Plan:: Patient is experiencing worsening pain in his neck with radiating symptoms to his upper extremities and complete numbness in his right hand. Patient had limited range of motion of the cervical spine and a positive Spurling's test. I have discussed with patient that he may benefit from a cervical epidural steroid injection. Risk and benefits were discussed with patient and he would like to proceed forward with this plan of care. Patient in the past was not taking his Plavix and only doing a baby aspirin. We will confirm that patient has not started back on the Plavix. If patient has started on this medication we will contact his provider to confirm he can stop this medication prior to this injection. Patient will be scheduled for a cervical epidural steroid injection C5-C6 under fluoroscopy. Patient has been instructed to contact the clinic with any concerns before the next appointment. Dr. Patel has reviewed this note and agrees with this plan of care. This note was dictated using voice recognition software and make contain errors or omissions. [facility] Disclaimer: The information contained in this section may have been updated after the patient was seen, as this information can be updated by other users. Medical History Bilateral cataracts Prostate cancer Surgical History History of appendectomy Status post double vessel coronary artery bypass Family History Other Cancer Coronary artery disease Hypertension Stroke Social History Smoking Status: Former smoker alcohol intake: never substance use type: denies use current occupational status: retired Travel in the last 8 weeks: None household members: spouse housing: house marital status: caffeine: No
[2023-07-12 11:43] VITALS: BP 110/83; PULSE 67; RESP 18; O2SAT 98; BMI 36.1
== END 2023-07-12 23:59 ==
PROVIDERS: Visit Provider Nurse Practitioner Family
DX: M50.122 Cervical disc disorder at C5-C6 level with radiculopathy (principal); M51.16 Intervertebral disc disorders with radiculopathy, lumbar region; G89.4 Chronic pain syndrome; M47.26 Other spondylosis with radiculopathy, lumbar region; M25.519 Pain in unspecified shoulder
CPT/HCPCS: 99212; G0463

== ENCOUNTER 2023-07-15 11:37 | Outpatient (CLI) | payer MEDICARE, OTHER, SELFPAY ==
--- NOTE | 2023-07-15 11:43 | MR_ITS ---
FINAL REPORT CLINICAL HISTORY: NECK PAIN COMPARISON: 05/15/2023 FINDINGS: Multiplanar MR imaging of the cervical spine was performed without contrast. There is motion artifact on many sequences. On the sagittal T2-weighted images, disc degeneration is seen throughout. There is no evidence of fracture. The vertebral alignment is normal. The cervical spinal cord has an unremarkable appearance without evidence of mass, edema or syrinx. No significant canal stenosis is identified. The cervicomedullary junction is normal. C2-3: There is a small central disc protrusion without significant canal stenosis or neural foraminal narrowing. C3-4: Annular disc bulge with uncovertebral osteophytes. There is moderate bilateral neuroforaminal narrowing. A small central disc protrusion is seen. C4-5: Uncovertebral osteophytes with mild right neuroforaminal narrowing. C5-6: Annular disc bulge with small central disc protrusion. C6-7: Small central disc protrusion with small uncovertebral osteophytes and mild bilateral neuroforaminal narrowing. C7-T1: Uncovertebral osteophytes with mild bilateral neuroforaminal narrowing. IMPRESSION: Central disc protrusions with mild neuroforaminal narrowing as above, stable from prior exam. Reviewed, Interpreted and Dictated by Zay Gilmore III, MD Transcribed by Susan Schroeder Authenticated and [facility]
== END 2023-07-15 23:59 ==
LOC: RAD 11:38
PROVIDERS: PCP Family Medicine; Visit Provider Nurse Practitioner Family
DX: M54.2 Cervicalgia (principal)
CPT/HCPCS: 72141; 76376

== ENCOUNTER 2023-07-18 12:11 | Day surgery (SDC) | payer MEDICARE, OTHER, SELFPAY ==
[2023-07-18 13:14] VITALS: BP 120/62; PULSE 69; RESP 18; O2SAT 97; BMI 36.3
[2023-07-18 13:22] VITALS: BP 103/78; PULSE 65; RESP 18; O2SAT 96
[2023-07-18] MEDS: methylPREDNISolone ACETATE 80MG/ML VIAL 80 MG (13:22)
[2023-07-18 13:23] VITALS: BP 103/78; PULSE 58; RESP 18; O2SAT 96
[2023-07-18 13:25] VITALS: BP 153/68; PULSE 63; RESP 18; O2SAT 97
--- NOTE | 2023-07-18 13:25 | P.PCN_ITS ---
Procedure Date: 07/18/23 Time: 13:22 Anesthesiologist:: Carter Dixon CRNA Complications:: None Pre-procedure Diagnosis:: Degenerative disc cervical spine multilevels. Cervical radiculopathy. Cervical facet arthropathy. Cervical spondylosis. Post-procedure Diagnosis:: Same. Indications for Procedure:: Patient is a very pleasant 78-year-old male comes our clinic today for cervical epidural steroid injection. Patient had 1 to 2 weeks of relief after receiving his initial cervical epidural steroid injection. We discussed potential for spine surgery referral if in fact this injection does not help him any further. He rates his pain 7/10. He describes posterior cervical neck pain as well as bilateral arm radicular symptoms to the hand. Right greater than left. Procedure Details:: Procedure:Cervical epidural steroid injection Informed consent was obtained and the risks and benefits of the procedure were explained to the patient. The patient was taken to the procedure room and noninvasive monitors placed, including noninvasive blood pressure cuff and pulse oximeter. The neck was prepped using Chloraprep as a cleansing solution. The C6- C7 interspace was viewed using fluroscopy. The skin and subcutaneous tissues were anesthetized using lidocaine 1.5% and a 25-gauge needle. After this an 18- gauge Touhy epidural needle was placed into the C6-C7 interspace under fluroscopy guidance and advanced using loss of resistance to air until the epidural space was encountered. After confirmation of needle placement in the epidural space using contrast dye, a solution containing normal saline, 2 mL and Depo-Medrol 80 mg was incrementally injected into the cervical epidural space.~ The patient tolerated the procedure well with no complications. The patient was observed in the Pain Clinic and then discharged home neurologically intact. Plan and Disposition:: Patient was discharged without incident.
[2023-07-18] MEDS: IOPAMIDOL-200 (41%);10ML VIAL 10 ML IV (13:37)
== END 2023-07-18 13:25 | disposition home or self-care (01) ==
PROVIDERS: PCP Family Medicine; Visit Provider Nurse Anesthetist, Certified Registered
DX: M50.123 Cervical disc disorder at C6-C7 level with radiculopathy (principal); M47.22 Other spondylosis with radiculopathy, cervical region
CPT/HCPCS: 62321; J1040; Q9966

== ENCOUNTER 2023-08-04 09:56 | Day surgery (SDC) | payer MEDICARE, OTHER, SELFPAY ==
[2023-08-04 10:19] VITALS: BP 134/70; PULSE 67; RESP 18; TEMP 36.2; O2SAT 99; BMI 37.4
[2023-08-04] MEDS: methylPREDNISolone ACETATE 80MG/ML VIAL 80 MG (10:24)
[2023-08-04] MEDS: LIDOCAINE 1% 5ML PF VIAL 5 ML (10:24)
[2023-08-04] MEDS: BUPIVACAINE 0.25% 10ML INJ 25 MG IJ (10:24)
[2023-08-04 10:26] VITALS: BP 121/74; PULSE 59; RESP 18; O2SAT 97
[2023-08-04 10:28] VITALS: BP 121/74; PULSE 70; RESP 18; O2SAT 97
[2023-08-04 10:31] VITALS: BP 128/54; PULSE 61; RESP 16; O2SAT 99
--- NOTE | 2023-08-04 10:32 | P.PCN_ITS ---
Procedure Date: 08/04/23 Time: 10:00 Anesthesiologist:: Carter Dixon CRNA Complications:: None Pre-procedure Diagnosis:: Degenerative disc lumbar spine multilevels. Lumbar radiculopathy. Lumbar spondylosis. Multilevel lumbar facet arthropathy. Post-procedure Diagnosis:: Same. Indications for Procedure:: Patient is a very pleasant 78-year-old male who comes our clinic today for bilateral L4-5, L5-S1 medial branch blocks/facet injections. Patient reports low back pain he describes as constant, dull, aching. Patient reports having difficulty with flexion, extension, left and right rotation. He rates his pain 7/10. Procedure Details:: Informed consent was obtained and the risk and benefits of the procedure was explained to the patient. Patient was taken to the procedure room where noninvasive monitors were placed, including noninvasive blood pressure cuff as well as pulse oximeter. The area over the lumbar spine was cleansed using chlorhexidine as a cleansing solution. I anesthetized the skin and subcutaneous tissues with 1% Lidocaine. I placed 22-gauge spinal needles into the facet joint/ medial branches of L4-L5, and L5-S1] bilaterally. Needle placement was confirmed with fluoroscopy. After confirmation of needle placement, each site was injected with 1 mL of 1% lidocaine and 0.25 % Marcaine and 10 mg of Depo- Medrol. A total of 80 mg of depo medrol was used for bilateral medial branch blocks of , L4-L5, and L5-S1] bilaterally. Patient tolerated the procedure without difficulty. There were no complications. Plan and Disposition:: Patient was discharged without incident.
== END 2023-08-04 10:31 | disposition home or self-care (01) ==
PROVIDERS: PCP Family Medicine; Visit Provider Nurse Anesthetist, Certified Registered
DX: M47.896 Other spondylosis, lumbar region (principal); M51.16 Intervertebral disc disorders with radiculopathy, lumbar region
CPT/HCPCS: 64493; 64494; J1010

== ENCOUNTER 2023-08-09 09:38 | Outpatient (POV) | payer MEDICARE, OTHER, SELFPAY ==
[2023-08-09 09:39] VITALS: BP 137/83; PULSE 65; RESP 19; TEMP 36.5; O2SAT 96; BMI 36.3
--- NOTE | 2023-08-09 10:12 | EXP.PAIN.SOA ---
[facility] Pain Management SOAP Note Subjective:: Patient is a pleasant 78-year-old male who presents today for follow-up of lumbar medial branch block bilaterally L4-L5 and L5-S1 on 08/04/2023. He states that it did help to improve his overall back pain. He states that it took the sharp severe pain completely away however he does still have a slight achy sensation there and his back. He states that it is much more manageable and feels like he can move around easier. Today he does state what is bothering him the most is his right hand numbness and throbbing. He does rate his pain a 5 out of 10 and states that this does interfere with his ability to perform activities of daily living such as cooking and cleaning. 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 Patient has had a cervical epidural in the past that did provide more than 50% and did help his right hand numbness. He is interested in repeating this injection. His Jorje is currently pending. 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 Psychiatric: [Normal mood/affect] Neurological: [Denies weakness in extremities], [denies balance issues] Objective:: Physical Exam: General: Alert and oriented x3, no acute distress, pleasant and cooperative Lungs: Respirations even and unlabored, symmetrical chest expansion Eyes: PERRL Musculoskeletal: Flexion and extension of cervical [spine] somewhat guarded secondary to pain, [antalgic gait noted] positive Spurling's test Neurological: Speech clear, no gross sensory deficit Assessment:: Degenerative disc disease of cervical and lumbar spine with cervical and lumbar radiculopathy symptoms, chronic pain syndrome, shoulder pain, lumbar facet arthropathy Plan:: Patient is experiencing more numbness in his right upper extremity with neck pain. Patient did have limited range of motion of the cervical spine along with a positive Spurling's test. 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 I have discussed with the patient that he may benefit from a repeat cervical epidural steroid injection. Risk and benefits were discussed with the patient and he would like to proceed forward with this plan of care. Patient is not on any blood thinners. We will schedule the patient for a FABY C5-C6 under fluoroscopy. Patient has been instructed to contact the clinic with any concerns before the next appointment. Dr. Patel has reviewed this note and agrees with this plan of care. This note was dictated using voice recognition software and make contain errors or omissions. [facility] Disclaimer: The information contained in this section may have been updated after the patient was seen, as this information can be updated by other users. Medical History Bilateral cataracts Prostate cancer Surgical History History of appendectomy Status post double vessel coronary artery bypass Family History Other Cancer Coronary artery disease Hypertension Stroke Social History Smoking Status: Former smoker alcohol intake: never substance use type: denies use current occupational status: retired Travel in the last 8 weeks: None household members: spouse housing: house marital status: caffeine: No
== END 2023-08-09 23:59 ==
LOC: SC.PAIN 09:39
PROVIDERS: PCP Family Medicine; Visit Provider Nurse Anesthetist, Certified Registered
DX: M50.122 Cervical disc disorder at C5-C6 level with radiculopathy (principal); M51.16 Intervertebral disc disorders with radiculopathy, lumbar region; G89.4 Chronic pain syndrome; M25.519 Pain in unspecified shoulder; M47.26 Other spondylosis with radiculopathy, lumbar region
CPT/HCPCS: 99212; G0463

== ENCOUNTER 2023-08-16 12:59 | Outpatient (POV) | payer MEDICARE, OTHER, SELFPAY ==
[2023-08-16 13:19] VITALS: BP 131/79; PULSE 70; RESP 18; O2SAT 96; BMI 36.3
--- NOTE | 2023-08-16 17:20 | A.OFFVIS_ITS ---
[facility] Pain Management SOAP Note Subjective:: Patient is a pleasant 78-year-old male who presents today for follow-up. Today he rates his pain a 7 out of 10. Patient denies any new trauma or injury. He does state that he continues to have low back pain as well as right hand numbness that is constant. He is scheduled for a cervical epidural coming up on the . 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 Patient is prescribed gabapentin and acetaminophen/tramadol from an outside provider. His Jorje has been reviewed and is appropriate. Review of Systems: General: No recent weight changes, no fever, no sleep disturbances Respiratory: No cough, no shortness of air, no recurring pulmonary infections Cardiovascular/peripheral vascular: No chest pain, no palpitations, no edema, no shortness of breath Gastrointestinal: No new onset incontinence, normal bowel movements reported Genitourinary: No new onset incontinence Musculoskeletal: Low back pain, right hand numbness tingling Psychiatric: [Normal mood/affect] Neurological: [Denies weakness in extremities], [denies balance issues] Objective:: Physical Exam: General: Alert and oriented x3, no acute distress, pleasant and cooperative Lungs: Respirations even and unlabored, symmetrical chest expansion Eyes: PERRL Musculoskeletal: Flexion and extension of lumbar [spine] somewhat guarded secondary to pain, [antalgic gait noted] Neurological: Speech clear, no gross sensory deficit Assessment:: 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 We will proceed forward with the patient's cervical epidural coming up. I have discussed with the patient at the time of his injection if he will let staff know if the baclofen did help, he needs additional refills. Patient acknowledges understanding and agrees with this plan of care. Patient will return to clinic after this injection for reevaluation of symptoms and plan of care. Patient has been instructed to contact the clinic with any concerns before the next appointment. Dr. Patel has reviewed this note and agrees with this plan of care. This note was dictated using voice recognition software and make contain errors or omissions. [facility] Disclaimer: The information contained in this section may have been updated after the patient was seen, as this information can be updated by other users. Medical History Bilateral cataracts Prostate cancer Surgical History History of appendectomy Status post double vessel coronary artery bypass Family History Other Cancer Coronary artery disease Hypertension Stroke Social History Smoking Status: Former smoker alcohol intake: never substance use type: denies use current occupational status: unemployed Travel in the last 8 weeks: None household members: spouse housing: house marital status: caffeine: No
== END 2023-08-16 23:59 | disposition home or self-care (01) ==
PROVIDERS: PCP Family Medicine; Visit Provider Nurse Practitioner Family
DX: M50.10 Cervical disc disorder with radiculopathy, unspecified cervical region (principal); M51.16 Intervertebral disc disorders with radiculopathy, lumbar region; G89.4 Chronic pain syndrome; M25.519 Pain in unspecified shoulder; M47.26 Other spondylosis with radiculopathy, lumbar region
CPT/HCPCS: 99212; G0463

== ENCOUNTER 2023-08-29 10:21 | Day surgery (SDC) | payer MEDICARE, OTHER, SELFPAY ==
[2023-08-29 10:35] VITALS: BP 127/74; PULSE 72; RESP 16; TEMP 36.7; O2SAT 97; BMI 36.3
[2023-08-29] MEDS: IOPAMIDOL-200 (41%);10ML VIAL 10 ML IV (10:49)
[2023-08-29 11:01] VITALS: BP 121/62; PULSE 60; RESP 18; O2SAT 96
[2023-08-29 11:02] VITALS: BP 121/62; PULSE 60; RESP 18; O2SAT 96
[2023-08-29 11:07] VITALS: BP 130/80; PULSE 62; RESP 18; O2SAT 97
--- NOTE | 2023-08-29 11:21 | P.PCN_ITS ---
Procedure Date: 08/29/23 Time: 11:14 Anesthesiologist:: Carter Dixon CRNA Complications:: None Pre-procedure Diagnosis:: Degenerative disc cervical spine multilevels. Cervical radiculopathy Post-procedure Diagnosis:: Same. Indications for Procedure:: Patient is a pleasant 78-year-old male comes our clinic today for cervical epidural steroid injection. This will be a repeat cervical epidural for the patient. He is reporting significant improvement terms of his overall posterior cervical neck pain with his prior injection as well as improvement in his bilateral arm radicular symptoms to the hand. He rates his pain today 6/10. His main complaint is numbness in the hands bilaterally Procedure Details:: Procedure:Cervical epidural steroid injection Informed consent was obtained and the risks and benefits of the procedure were explained to the patient. The patient was taken to the procedure room and noninvasive monitors placed, including noninvasive blood pressure cuff and pulse oximeter. The neck was prepped using Chloraprep as a cleansing solution. The C6- C7 interspace was viewed using fluroscopy. The skin and subcutaneous tissues were anesthetized using lidocaine 1.5% and a 25-gauge needle. After this an 18- gauge Touhy epidural needle was placed into the C6-C7 interspace under fluroscopy guidance and advanced using loss of resistance to air until the epidural space was encountered. After confirmation of needle placement in the epidural space using contrast dye, a solution containing normal saline, 2 mL and Depo-Medrol 80 mg was incrementally injected into the cervical epidural space.~ The patient tolerated the procedure well with no complications. The patient was observed in the Pain Clinic and then discharged home neurologically intact. Plan and Disposition:: Patient was discharged without incident.
== END 2023-08-29 11:07 | disposition home or self-care (01) ==
PROVIDERS: PCP Family Medicine; Visit Provider Nurse Anesthetist, Certified Registered
DX: M50.123 Cervical disc disorder at C6-C7 level with radiculopathy (principal)
CPT/HCPCS: 62321; Q9966

== ENCOUNTER 2023-09-13 10:11 | Outpatient (POV) | payer MEDICARE, OTHER, SELFPAY ==
[2023-09-13 10:14] VITALS: BP 142/88; PULSE 63; RESP 18; O2SAT 98; BMI 35.5
--- NOTE | 2023-09-13 11:03 | A.OFFVIS_ITS ---
[facility] Pain Management SOAP Note Subjective:: Patient is a pleasant 78-year-old male who presents today for follow-up of cervical epidural steroid injection C6 or C7 on 08/29/2023. Today he rates his pain a 6 out of 10. Patient states that he did have at least 50% relief lasting approximately 10 days following this injection. 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 He does state that he has to be very cautious when he is doing activities and due to not feeling his hand. He does state he has the upcoming EMG test in October. Patient does think that possible involvement may be related to a previous right shoulder injury. Patient was prescribed baclofen 10 mg twice a day in the past to try for 2 weeks however he states that he took 1 dose and he felt extremely fatigued and even had some blurred vision and discontinued this medication. Patient does state he still has his chronic neck pain that is worse at night as well as chronic low back pain. He is prescribed gabapentin and Tylenol/tramadol from an outside provider. His Jorje has been reviewed and is appropriate. Review of Systems: General: No recent weight changes, no fever, no sleep disturbances Respiratory: No cough, no shortness of air, no recurring pulmonary infections Cardiovascular/peripheral vascular: No chest pain, no palpitations, no edema, no shortness of breath Gastrointestinal: No new onset incontinence, normal bowel movements reported Genitourinary: No new onset incontinence Musculoskeletal: Neck pain, right hand numbness, low back pain, right shoulder pain Psychiatric: [Normal mood/affect] Neurological: [Denies weakness in extremities], [denies balance issues] Objective:: Physical Exam: General: Alert and oriented x3, no acute distress, pleasant and cooperative Lungs: Respirations even and unlabored, symmetrical chest expansion Eyes: PERRL Musculoskeletal: Flexion and extension of lumbar [spine] somewhat guarded secondary to pain, [antalgic gait noted] Neurological: Speech clear, no gross sensory deficit Assessment:: 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 I have discussed with the patient that we will plan on following up with him after his EMG testing. I have still discussed with patient that he may benefit from a spinal cord stimulator trial. We will follow-up with this at future visits. Patient will return to clinic in approximately 6 weeks for reevaluation of symptoms and plan of care. Patient has been instructed to contact the clinic with any concerns before the next appointment. Dr. Patel has reviewed this note and agrees with this plan of care. This note was dictated using voice recognition software and make contain errors or omissions. [facility] Disclaimer: The information contained in this section may have been updated after the patient was seen, as this information can be updated by other users. Medical History Bilateral cataracts Prostate cancer Surgical History History of appendectomy Status post double vessel coronary artery bypass Family History Other Cancer Coronary artery disease Hypertension Stroke Social History Smoking Status: Former smoker alcohol intake: never substance use type: denies use current occupational status: other Travel in the last 8 weeks: None household members: spouse housing: house marital status: caffeine: No
== END 2023-09-13 23:59 | disposition home or self-care (01) ==
LOC: SC.PAIN 10:12
PROVIDERS: PCP Family Medicine; Visit Provider Nurse Practitioner Family
DX: M50.123 Cervical disc disorder at C6-C7 level with radiculopathy (principal); M51.16 Intervertebral disc disorders with radiculopathy, lumbar region; G89.4 Chronic pain syndrome; M25.519 Pain in unspecified shoulder; M47.26 Other spondylosis with radiculopathy, lumbar region
CPT/HCPCS: 99212; G0463

== ENCOUNTER 2023-10-12 08:50 | Outpatient (POV) | payer MEDICARE, OTHER, SELFPAY ==
[2023-10-12 09:21] VITALS: BP 128/50; PULSE 62; RESP 16; O2SAT 99; BMI 35.7
--- NOTE | 2023-10-12 12:12 | A.OFFVIS_ITS ---
[facility] Pain Management SOAP Note Subjective:: Patient is a pleasant 78-year-old male who presents today for follow-up. Today he rates his pain a 5 out of 10. Patient denies any new trauma or injury. He states he continues to have the chronic pain throughout his low back and neck with numbness and tingling still in his right hand. 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 He states that he frequently wakes up with his right hand completely cold and numb. Patient does state this pain interferes with his ability perform activities of daily living such as cooking and cleaning. Patient states due to these symptoms he does not even feel like he is safe to drive long distances. Patient states he did just have a nerve conduction study done with Dr. Perez yesterday and is waiting to hear the results. Patient is interested in repeating his prior cervical injection because it did improve his overall radicular symptoms. He states he did have overall improved function when these injections worked. His last injection provided 50% relief lasting 10 days. Patient is prescribed gabapentin and Tylenol and tramadol from an outside provider. His Jorje has been reviewed and is appropriate. Review of Systems: General: No recent weight changes, no fever, no sleep disturbances Respiratory: No cough, no shortness of air, no recurring pulmonary infections Cardiovascular/peripheral vascular: No chest pain, no palpitations, no edema, no shortness of breath Gastrointestinal: No new onset incontinence, normal bowel movements reported Genitourinary: No new onset incontinence Musculoskeletal: Neck pain, right arm/hand numbness and tingling Psychiatric: [Normal mood/affect] Neurological: [Denies weakness in extremities], [denies balance issues] Objective:: Physical Exam: General: Alert and oriented x3, no acute distress, pleasant and cooperative Lungs: Respirations even and unlabored, symmetrical chest expansion Eyes: PERRL Musculoskeletal: Flexion and extension of cervical [spine] somewhat guarded secondary to pain, [antalgic gait noted] positive Spurling's test Neurological: Speech clear, no gross sensory deficit Assessment:: 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 Patient did have a positive Spurling's test. I have reviewed over the risk and benefits of the cervical epidural and he would like to proceed forward with this plan of care. Patient has tried and failed conservative therapy with continued at home exercising and stretching between injections. We will schedule the patient for a FABY C6 or C7 under fluoroscopy. Patient has been instructed to contact the clinic with any concerns before the next appointment. Dr. Patel has reviewed this note and agrees with this plan of care. This note was dictated using voice recognition software and make contain errors or omissions. [facility] Disclaimer: The information contained in this section may have been updated after the patient was seen, as this information can be updated by other users. Medical History Bilateral cataracts Prostate cancer Surgical History History of appendectomy Status post double vessel coronary artery bypass Family History Other Cancer Coronary artery disease Hypertension Stroke Social History Smoking Status: Former smoker alcohol intake: never substance use type: denies use current occupational status: retired Travel in the last 8 weeks: None household members: spouse housing: house marital status: caffeine: No
== END 2023-10-12 23:59 | disposition home or self-care (01) ==
LOC: SC.PAIN 08:50
PROVIDERS: PCP Family Medicine; Visit Provider Nurse Practitioner Family
DX: M50.123 Cervical disc disorder at C6-C7 level with radiculopathy (principal); M51.16 Intervertebral disc disorders with radiculopathy, lumbar region; G89.4 Chronic pain syndrome; M25.519 Pain in unspecified shoulder; M47.26 Other spondylosis with radiculopathy, lumbar region
CPT/HCPCS: 99212; G0463

== ENCOUNTER 2023-11-14 07:26 | Day surgery (SDC) | payer MEDICARE, OTHER, SELFPAY ==
[2023-11-14 08:29] VITALS: BP 154/76; PULSE 59; RESP 18; TEMP 36.5; O2SAT 97; BMI 35.5
[2023-11-14] MEDS: methylPREDNISolone ACETATE 80MG/ML VIAL 80 MG (08:48)
[2023-11-14 08:49] VITALS: BP 152/99; PULSE 68; RESP 18; O2SAT 98
[2023-11-14 08:50] VITALS: BP 152/99; PULSE 65; RESP 18; O2SAT 98
--- NOTE | 2023-11-14 08:54 | P.PCN_ITS ---
Procedure Date: 11/14/23 Time: 08:30 Anesthesiologist:: Carter Dixon CRNA Complications:: None Pre-procedure Diagnosis:: Degenerative disc cervical spine multilevels. Cervical radiculopathy. Post-procedure Diagnosis:: Same. Indications for Procedure:: Patient is a pleasant 78-year-old male comes our clinic today for cervical epidural steroid injection. Patient reports 7 to 10 days of significant improvement terms of his overall posterior cervical neck pain as well as bilateral arm radicular symptoms, right greater than left, with his previous initial cervical epidural steroid injection. Patient's main complaint today is posterior cervical neck pain as well as right arm and hand numbness and tingling. He rates his pain 7/10. Procedure Details:: Procedure:Cervical epidural steroid injection Informed consent was obtained and the risks and benefits of the procedure were explained to the patient. The patient was taken to the procedure room and noninvasive monitors placed, including noninvasive blood pressure cuff and pulse oximeter. The neck was prepped using Chloraprep as a cleansing solution. The C6- C7 interspace was viewed using fluroscopy. The skin and subcutaneous tissues were anesthetized using lidocaine 1.5% and a 25-gauge needle. After this an 18- gauge Touhy epidural needle was placed into the C6-C7 interspace under fluroscopy guidance and advanced using loss of resistance to air until the epidural space was encountered. After confirmation of needle placement in the epidural space using contrast dye, a solution containing normal saline, 2 mL and Depo-Medrol 80 mg was incrementally injected into the cervical epidural space.~ The patient tolerated the procedure well with no complications. The patient was observed in the Pain Clinic and then discharged home neurologically intact. Plan and Disposition:: Patient was discharged without incident.
[2023-11-14 08:57] VITALS: BP 164/77; PULSE 69; RESP 18; O2SAT 97
[2023-11-14] MEDS: IOPAMIDOL-200 (41%);10ML VIAL 4 ML IV (08:57)
== END 2023-11-14 08:58 | disposition home or self-care (01) ==
PROVIDERS: PCP Family Medicine; Visit Provider Nurse Anesthetist, Certified Registered
DX: M50.123 Cervical disc disorder at C6-C7 level with radiculopathy (principal)
CPT/HCPCS: 62321; J1010; Q9966

== ENCOUNTER 2023-11-30 09:10 | Outpatient (POV) | payer MEDICARE, OTHER, SELFPAY ==
[2023-11-30 09:24] VITALS: BP 130/62; PULSE 61; RESP 18; O2SAT 98; BMI 35.5
--- NOTE | 2023-11-30 09:42 | A.OFFVIS_ITS ---
[facility] Disclaimer: The information contained in this section may have been updated after the patient was seen, as this information can be updated by other users. Medical History Bilateral cataracts Prostate cancer Surgical History History of appendectomy Status post double vessel coronary artery bypass Family History Other Cancer Coronary artery disease Hypertension Stroke Social History Smoking Status: Former smoker alcohol intake: never substance use type: denies use current occupational status: retired Travel in the last 8 weeks: None household members: spouse housing: house marital status: caffeine: No PM Subjective & Objective Subjective Subjective:: Patient is a pleasant 78-year-old male who presents today for follow-up of cervical epidural steroid injection C6-C7 on 11/14/2023 and worsening back pain. Today he rates his pain a 5 out of 10. Patient states he had at least 50% improvement following his cervical epidural and feels like it still helping. Patient states he has been able to move around easier with overall decreased pain. He does however state he is experiencing a lot more pain in and around his low back and hip area. He denies any new trauma or injury. Patient does state it still that same pain he had earlier in the year. Patient does state it is worse with certain movements such as bending, twisting or lifting. He would like to see about having another injection. This considering how well his last 1 helps. Patient did state that he had approximately 80% relief with his first 1 lasting at least a couple of weeks if not longer. He does state it took away the severity that he had on a daily basis. Today he does state the pain is interfering with his ability perform activities of daily living such as cooking and cleaning. Patient does present today with a brace on his right wrist. He states he did have the EMG test and they are thinking that there is some carpal tunnel issues and that they are wanting him to use the brace to see how well he does with that before proceeding forward with surgery recommendations. Patient does continue to use his Voltaren cream along with gabapentin, tramadol and Tylenol for an outside provider. His Jorje has been reviewed and is appropriate. Review of Systems: General: No recent weight changes, no fever, no sleep disturbances Respiratory: No cough, no shortness of air, no recurring pulmonary infections Cardiovascular/peripheral vascular: No chest pain, no palpitations, no edema, no shortness of breath Gastrointestinal: No new onset incontinence, normal bowel movements reported Genitourinary: No new onset incontinence Musculoskeletal: Low back pain, hip pain Psychiatric: [Normal mood/affect] Neurological: [Denies weakness in extremities], [denies balance issues] Pain at rest (0-10 scale): 5 Objective Objective:: Physical Exam: General: Alert and oriented x3, no acute distress, pleasant and cooperative Lungs: Respirations even and unlabored, symmetrical chest expansion Eyes: PERRL Musculoskeletal: Flexion and extension of lumbar [spine] somewhat guarded secondary to pain, [antalgic gait noted] positive Kemps test Neurological: Speech clear, no gross sensory deficit Has patient had previous pain injection?: Yes Percent improvement in pain since last injection: 50% Conservative treatment options previously tried: NSAIDS Length of treatment: Longer than 6 weeks, Home exercise plan Length of treatment: Longer than 6 weeks and Prescription medications Length of treatment: Longer than 6 weeks Meds Home Medications and Allergies Home Medications ?Medication ?Instructions ?Recorded ?Confirmed ?Type B-complex with vitamin C (Super B 1 tab PO .q day Supplement 06/06/17 11/30/23 History Complex-Vitamin C tablet) aspirin 81 mg tablet,delayed 81 mg PO ONCE heart. 06/06/17 11/30/23 History release cholecalciferol (vitamin D3) 50 2,000 unit PO ONCE Supplement 06/06/17 11/30/23 History mcg (2,000 unit) capsule clopidogrel 75 mg tablet 75 mg PO ONCE heart. 06/06/17 11/30/23 History diclofenac sodium 1 % topical gel 2 g topical QID , 06/06/17 11/30/23 History (Voltaren) nitroglycerin 0.4 mg sublingual 0.4 mg sublingual Q5M PRN cp 06/06/17 11/30/23 History tablet omeprazole magnesium 20 mg 20 mg PO ONCE stomach 06/06/17 11/30/23 History capsule,delayed release tramadol 37.5 mg-acetaminophen 325 1 tab PO Q4-6H PRN pain 06/06/17 11/30/23 History mg tablet (Ultracet) albuterol sulfate 90 mcg/actuation 2 inh inhalation Q6H PRN Breathing 01/05/23 11/30/23 History breath activated powder inhaler Problems donepezil 5 mg tablet 5 mg PO DAILY 01/05/23 11/30/23 History fluticasone 250 mcg-salmeterol 50 1 inh inhalation BID PRN Breathing 01/05/23 11/30/23 History mcg/dose blistr powdr for Problems inhalation (Advair Diskus) furosemide 40 mg tablet 40 mg PO BID 01/05/23 11/30/23 History isosorbide mononitrate 30 mg 30 mg PO DAILY Chest Pain 01/05/23 11/30/23 History tablet,extended release 24 hr losartan 50 mg tablet 50 mg PO BID 01/05/23 11/30/23 History metformin 500 mg tablet 500 mg PO DAILY 01/05/23 11/30/23 History rosuvastatin 40 mg tablet 40 mg PO DAILY 01/05/23 11/30/23 History spironolactone 25 mg tablet 25 mg PO DAILY 01/05/23 11/30/23 History gabapentin 100 mg capsule See Rx Instructions PO .COMPLEX 04/27/23 11/30/23 History New Prescriptions to Start Prescriptions: Allergies Allergy/AdvReac Type Severity Reaction Status Date / Time Penicillins Allergy Intermediate I-RASH Verified 11/22/23 08:14 codeine Allergy Unknown AFFECTS Verified 11/22/23 08:14 HEART Assessment and Plan *Assessment and plan (1) Degenerative disc disease, lumbar: Status: Acute Category: Medical Code(s): M51.36 - Other intervertebral disc degeneration, lumbar region (2) Lumbar facet arthropathy: Status: Acute Category: Medical Code(s): M47.816 - Spondylosis without myelopathy or radiculopathy, lumbar region (3) Lumbar spondylosis: Status: Acute Category: Medical Code(s): M47.816 - Spondylosis without myelopathy or radiculopathy, lumbar region Plan Patient is experiencing worsening pain throughout his low back with limited range of motion and positive Kemps test. Patient did previously have a lumbar medial branch block back on August 03 that did provide 80% improvement lasting at least a couple of weeks if not longer. I did review over the risk and benefits of repeat lumbar medial branch block and he would like to proceed forward with this plan of care. Patient is prescribed Plavix however states he has not been taking this medication. We will reach out to his provider just to confirm that he can stop this medication prior to this procedure. I did also discuss with him at length if he has again significant improvement we will look at doing the lumbar RFA at a later date. Patient is agreeable to this. Patient is tried and failed conservative treatment including continued at home stretching and exercise for longer than 6 weeks. We will schedule the patient for his second lumbar medial branch block bilaterally L4- L5 and L5-S1 under fluoroscopy. Patient has been instructed to contact the clinic with any concerns before the next appointment. Dr. Patel has reviewed this note and agrees with this plan of care. This note was dictated using voice recognition software and make contain errors or omissions. All injections are used with Lidocaine or Bupivacaine and Depo Medrol.
== END 2023-11-30 23:59 | disposition home or self-care (01) ==
LOC: SC.PAIN 09:10
PROVIDERS: PCP Family Medicine; Visit Provider Nurse Practitioner Family
DX: M51.36 Other intervertebral disc degeneration, lumbar region (principal); M47.816 Spondylosis without myelopathy or radiculopathy, lumbar region; Z87.891 Personal history of nicotine dependence; Z73.89 Other problems related to life management difficulty; Z79.899 Other long term (current) drug therapy
CPT/HCPCS: 99212; G0463

== ENCOUNTER 2023-12-12 09:39 | Outpatient (POV) | payer MEDICARE, OTHER, SELFPAY | END 2023-12-12 23:59 | disposition home or self-care (01) | LOC: SC 09:39 | PROVIDERS: PCP Family Medicine; Visit Provider Dermatology | DX: Z00.00 Encounter for general adult medical examination without abnormal findings (principal) ==

== ENCOUNTER 2023-12-27 09:26 | Outpatient (POV) | payer MEDICARE, OTHER, SELFPAY ==
[2023-12-27 10:06] VITALS: BP 124/54; PULSE 73; RESP 16; O2SAT 96; BMI 35.5
--- NOTE | 2023-12-27 10:23 | XR_ITS ---
FINAL REPORT CLINICAL HISTORY: RT SHOULDER PAIN COMPARISON: None FINDINGS: RIGHT SHOULDER 2 views demonstrate no acute fracture or dislocation. The visualized joint spaces are normally aligned. The soft tissues are unremarkable. IMPRESSION: No acute process. Reviewed, Interpreted and Dictated by Micky Tran MD Transcribed by Falguni Leo Authenticated and [facility]
--- NOTE | 2023-12-27 12:34 | EXP.PAIN.SOA ---
[facility] Disclaimer: The information contained in this section may have been updated after the patient was seen, as this information can be updated by other users. Medical History Bilateral cataracts Prostate cancer Surgical History History of appendectomy Status post double vessel coronary artery bypass Family History Other Cancer Coronary artery disease Hypertension Stroke Social History Smoking Status: Former smoker alcohol intake: never substance use type: denies use current occupational status: retired Travel in the last 8 weeks: None household members: spouse housing: house marital status: caffeine: No PM Subjective & Objective Subjective Subjective:: Patient is a pleasant 78-year-old male who presents today for insurance denial of his second lumbar medial branch block. Today he rates his pain a 6 out of 10. He denies any new trauma or injury. He does state that he continues to have chronic low back pain as well as neck pain that does radiate into his upper extremity primarily the right side with numbness and tingling. Patient does state that the prior injections he has gotten in his low back were very beneficial and did provide significant improvement. Patient has had his first lumbar medial branch block that did provide 80% relief lasting 2 weeks minimum. He states he did have improved function with decreased pain. Patient does state that his pain does still stay high due to the neck pain and radicular symptoms with it. Patient does state that frequently even when we are able to decrease his overall back pain he is still experiencing the chronic degenerative disc of his cervical spine and cervical radiculopathy symptoms. Patient does state today a lot of his pain is throughout his low back that is worse with certain movements such as bending, twisting or lifting. He does state the pain interferes with his ability to perform activities of daily living such as cooking and cleaning and does describe it as a chronic aching, throbbing sensation. Patient has tried and failed conservative therapy including continued at home stretching exercise for longer than 6 weeks. Patient is on Voltaren cream, gabapentin, tramadol and Tylenol from his PCP. His Jorje has been reviewed and is appropriate. Review of Systems: General: No recent weight changes, no fever, no sleep disturbances Respiratory: No cough, no shortness of air, no recurring pulmonary infections Cardiovascular/peripheral vascular: No chest pain, no palpitations, no edema, no shortness of breath Gastrointestinal: No new onset incontinence, normal bowel movements reported Genitourinary: No new onset incontinence Musculoskeletal: Low back pain Psychiatric: [Normal mood/affect] Neurological: [Denies weakness in extremities], [denies balance issues] Pain at rest (0-10 scale): 6 Objective Objective:: Physical Exam: General: Alert and oriented x3, no acute distress, pleasant and cooperative Lungs: Respirations even and unlabored, symmetrical chest expansion Eyes: PERRL Musculoskeletal: Flexion and extension of lumbar [spine] somewhat guarded secondary to pain, [antalgic gait noted] positive Kemps test Neurological: Speech clear, no gross sensory deficit Has patient had previous pain injection?: No Conservative treatment options previously tried: Home exercise plan Length of treatment: Longer than 6 weeks Meds Home Medications and Allergies Home Medications ?Medication ?Instructions ?Recorded ?Confirmed ?Type B-complex with vitamin C (Super B 1 tab PO .q day Supplement 06/06/17 12/27/23 History Complex-Vitamin C tablet) aspirin 81 mg tablet,delayed 81 mg PO ONCE heart. 06/06/17 12/27/23 History release cholecalciferol (vitamin D3) 50 2,000 unit PO ONCE Supplement 06/06/17 12/27/23 History mcg (2,000 unit) capsule clopidogrel 75 mg tablet 75 mg PO ONCE heart. 06/06/17 12/27/23 History diclofenac sodium 1 % topical gel 2 g topical QID , 06/06/17 12/27/23 History (Voltaren) nitroglycerin 0.4 mg sublingual 0.4 mg sublingual Q5M PRN cp 06/06/17 12/27/23 History tablet omeprazole magnesium 20 mg 20 mg PO ONCE stomach 06/06/17 12/27/23 History capsule,delayed release tramadol 37.5 mg-acetaminophen 325 1 tab PO Q4-6H PRN pain 06/06/17 12/27/23 History mg tablet (Ultracet) albuterol sulfate 90 mcg/actuation 2 inh inhalation Q6H PRN Breathing 01/05/23 12/27/23 History breath activated powder inhaler Problems donepezil 5 mg tablet 5 mg PO DAILY 01/05/23 12/27/23 History fluticasone 250 mcg-salmeterol 50 1 inh inhalation BID PRN Breathing 01/05/23 12/27/23 History mcg/dose blistr powdr for Problems inhalation (Advair Diskus) furosemide 40 mg tablet 40 mg PO BID 01/05/23 12/27/23 History isosorbide mononitrate 30 mg 30 mg PO DAILY Chest Pain 01/05/23 12/27/23 History tablet,extended release 24 hr losartan 50 mg tablet 50 mg PO BID 01/05/23 12/27/23 History metformin 500 mg tablet 500 mg PO DAILY 01/05/23 12/27/23 History rosuvastatin 40 mg tablet 40 mg PO DAILY 01/05/23 12/27/23 History spironolactone 25 mg tablet 25 mg PO DAILY 01/05/23 12/27/23 History gabapentin 100 mg capsule See Rx Instructions PO .COMPLEX 04/27/23 12/27/23 History New Prescriptions to Start Prescriptions: Allergies Allergy/AdvReac Type Severity Reaction Status Date / Time Penicillins Allergy Intermediate I-RASH Verified 11/22/23 08:14 codeine Allergy Unknown AFFECTS Verified 11/22/23 08:14 HEART Assessment and Plan *Assessment and plan (1) Lumbar spondylosis: Status: Acute Category: Medical Code(s): M47.816 - Spondylosis without myelopathy or radiculopathy, lumbar region (2) Lumbar facet arthropathy: Status: Acute Category: Medical Code(s): M47.816 - Spondylosis without myelopathy or radiculopathy, lumbar region Plan Patient is experiencing significant pain throughout his low back with no radiating symptoms to his lower extremities. Patient did previously have his first lumbar medial branch block that did provide 80% relief lasting at least 2 weeks with overall improved function. Patient does have chronic pain in other locations that does affect his overall pain rating on a day-to-day basis. Patient did have limited range of motion of his lumbar spine and a positive Kemps test today. I did review over the risk and benefits of the repeat lumbar medial branch block #2 and he would like to proceed forward with this plan of care. Patient has tried and failed conservative therapy including continued at home stretching exercise for longer than 6 weeks and continued medication. Patient has been on Plavix in the past however he states that he is actually not restarted this medication for some time. I have counseled the patient that he is not able to take this medication and have this procedure done. Patient is in agreement. Patient will be scheduled for his second lumbar medial branch block bilaterally L4-L5 and L5-S1 under fluoroscopy. Patient has been instructed to contact the clinic with any concerns before the next appointment. Dr. Patel has reviewed this note and agrees with this plan of care. This note was dictated using voice recognition software and make contain errors or omissions. All injections are used with Lidocaine or Bupivacaine and Depo Medrol.
== END 2023-12-27 23:59 | disposition home or self-care (01) ==
PROVIDERS: PCP Family Medicine; Visit Provider Nurse Practitioner Family
DX: M47.816 Spondylosis without myelopathy or radiculopathy, lumbar region (principal); Z95.1 Presence of aortocoronary bypass graft; Z87.891 Personal history of nicotine dependence; Z73.89 Other problems related to life management difficulty; Z79.899 Other long term (current) drug therapy
CPT/HCPCS: 73030; 99212; G0463

== ENCOUNTER 2024-01-15 07:54 | Outpatient (CLI) | payer MEDICARE, OTHER, SELFPAY ==
--- NOTE | 2024-01-15 07:56 | MR_ITS ---
FINAL REPORT TECHNIQUE: Multiplanar and multisequence imaging of the shoulder was obtained without contrast. CLINICAL HISTORY: RIGHT SHOULDER PAIN numbness in right hand and arm COMPARISON: None FINDINGS: Bones and joints: There is no acute fracture, edema, or pathologic marrow replacement. Acromioclavicular joint degenerative disease is present and there is osteophytosis which narrows the supraspinatus outlet. Rotator cuff: There is no full-thickness rotator cuff tendon tear. There is a partial tear of the articular surface of the infraspinatus tendon involving approximately 50% of the thickness of that tendon. No biceps tendon dislocation is present. There is no fatty atrophy of the rotator cuff muscles. Labrum: No labral tear is identified. The glenohumeral ligaments appear intact. The biceps tendon is within normal limits. No biceps tendon tear is identified. Other: There is no joint effusion. There is trace fluid in the subdeltoid bursa. Remaining soft tissues are within normal limits. IMPRESSION: Acromioclavicular degenerative change. Partial tear of the articular surface of the infraspinatus tendon involving approximately 50% of the thickness of that tendon. Reviewed, Interpreted and Dictated by Georgia Peterson MD Transcribed by Falguni Leo Authenticated and [facility]
== END 2024-01-15 23:59 | disposition home or self-care (01) ==
LOC: RAD 07:54
PROVIDERS: PCP Family Medicine; Visit Provider Nurse Practitioner Family
DX: M25.511 Pain in right shoulder (principal)
CPT/HCPCS: 73221

== ENCOUNTER 2024-02-12 08:10 | Outpatient (POV) | payer MEDICARE, OTHER, SELFPAY ==
[2024-02-12 08:59] VITALS: BP 126/66; PULSE 63; RESP 18; O2SAT 98; BMI 35.5
--- NOTE | 2024-02-12 10:09 | EXP.PAIN.SOA ---
[facility] Disclaimer: The information contained in this section may have been updated after the patient was seen, as this information can be updated by other users. Medical History Bilateral cataracts Prostate cancer Surgical History History of appendectomy Status post double vessel coronary artery bypass Family History Other Cancer Coronary artery disease Hypertension Stroke Social History Smoking Status: Former smoker alcohol intake: never substance use type: denies use current occupational status: retired Travel in the last 8 weeks: None household members: spouse housing: house marital status: caffeine: No PM Subjective & Objective Subjective Subjective:: Patient is a pleasant 78-year-old male who presents today for worsening pain. Today he rates his pain a 7 out of 10. He does state that he is continuing to have worse pain in his neck with numbness and tingling into now both his hands. Patient states the pain is severe and constantly feels like his hands are on fire and numb. 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 He does state that he did recently have a EMG test with Dr. Perez however he has never heard any results. Patient is also requesting the results of his MRI of his right shoulder today. Patient is currently managed with tramadol, gabapentin Voltaren cream and Tylenol from his PCP. Patient states that he just cannot function with the gabapentin taking it during the day. His Jorje has been reviewed and is appropriate. Review of Systems: General: No recent weight changes, no fever, no sleep disturbances Respiratory: No cough, no shortness of air, no recurring pulmonary infections Cardiovascular/peripheral vascular: No chest pain, no palpitations, no edema, no shortness of breath Gastrointestinal: No new onset incontinence, normal bowel movements reported Genitourinary: No new onset incontinence Musculoskeletal: Neck pain, bilateral arm numbness tingling Psychiatric: [Normal mood/affect] Neurological: [Denies weakness in extremities], [denies balance issues] Pain at rest (0-10 scale): 7 Objective Objective:: Physical Exam: General: Alert and oriented x3, no acute distress, pleasant and cooperative Lungs: Respirations even and unlabored, symmetrical chest expansion Eyes: PERRL Musculoskeletal: Flexion and extension of cervical [spine] somewhat guarded secondary to pain, [antalgic gait noted] positive Spurling's test Neurological: Speech clear, no gross sensory deficit Has patient had previous pain injection?: No Conservative treatment options previously tried: Home exercise plan Length of treatment: Longer than 12 weeks Meds Home Medications and Allergies Home Medications ?Medication ?Instructions ?Recorded ?Confirmed ?Type B-complex with vitamin C (Super B 1 tab PO .q day Supplement 06/06/17 02/12/24 History Complex-Vitamin C tablet) aspirin 81 mg tablet,delayed 81 mg PO ONCE heart. 06/06/17 02/12/24 History release cholecalciferol (vitamin D3) 50 2,000 unit PO ONCE Supplement 06/06/17 02/12/24 History mcg (2,000 unit) capsule clopidogrel 75 mg tablet 75 mg PO ONCE heart. 06/06/17 02/12/24 History diclofenac sodium 1 % topical gel 2 g topical QID , 06/06/17 02/12/24 History (Voltaren) nitroglycerin 0.4 mg sublingual 0.4 mg sublingual Q5M PRN cp 06/06/17 02/12/24 History tablet omeprazole magnesium 20 mg 20 mg PO ONCE stomach 06/06/17 02/12/24 History capsule,delayed release tramadol 37.5 mg-acetaminophen 325 1 tab PO Q4-6H PRN pain 06/06/17 02/12/24 History mg tablet (Ultracet) albuterol sulfate 90 mcg/actuation 2 inh inhalation Q6H PRN Breathing 01/05/23 02/12/24 History breath activated powder inhaler Problems donepezil 5 mg tablet 5 mg PO DAILY 01/05/23 02/12/24 History fluticasone 250 mcg-salmeterol 50 1 inh inhalation BID PRN Breathing 01/05/23 02/12/24 History mcg/dose blistr powdr for Problems inhalation (Advair Diskus) furosemide 40 mg tablet 40 mg PO BID 01/05/23 02/12/24 History isosorbide mononitrate 30 mg 30 mg PO DAILY Chest Pain 01/05/23 02/12/24 History tablet,extended release 24 hr losartan 50 mg tablet 50 mg PO BID 01/05/23 02/12/24 History metformin 500 mg tablet 500 mg PO DAILY 01/05/23 02/12/24 History rosuvastatin 40 mg tablet 40 mg PO DAILY 01/05/23 02/12/24 History spironolactone 25 mg tablet 25 mg PO DAILY 01/05/23 02/12/24 History gabapentin 100 mg capsule See Rx Instructions PO .COMPLEX 04/27/23 02/12/24 History New Prescriptions to Start Prescriptions: Allergies Allergy/AdvReac Type Severity Reaction Status Date / Time Penicillins Allergy Intermediate I-RASH Verified 11/22/23 08:14 codeine Allergy Unknown AFFECTS Verified 11/22/23 08:14 HEART Assessment and Plan *Assessment and plan (1) Cervical radiculopathy: Status: Acute Category: Medical Code(s): M54.12 - Radiculopathy, cervical region (2) Chronic pain syndrome: Status: Acute Category: Medical Code(s): G89.4 - Chronic pain syndrome (3) Degenerative disc disease, cervical: Status: Acute Category: Medical Code(s): M50.30 - Other cervical disc degeneration, unspecified cervical region Plan Patient is experiencing worsening pain in his neck with radiating symptoms into his bilateral upper extremities and hands with numbness and tingling. Patient did have limited range of motion of his cervical spine with a positive Spurling's test. I did discuss with the patient that I do believe he would benefit from a repeat cervical epidural steroid injection. Patient did previously have his last cervical epidural back in October that did provide more than 50% relief lasting approximately 2 months. I reviewed over the risk and benefits and he would like to proceed forward with this plan of care. Patient has tried and failed conservative therapy including continued at home stretching exercise for longer than 12 weeks. I did also review over the MRI findings of his right shoulder that did have a 50% infraspinatus tendon tear and degenerative changes. Patient will be sent for referral to [facility] for evaluation of his right shoulder pain as well as the possibility of carpal tunnel syndrome. I have discussed with the patient that I would recommending calling Dr. Perez's office to see about getting the results of his EMG test. I did also discuss with the patient that I will send in a 2-week dose of pregabalin 50 mg twice a day. Patient was counseled to discontinue the gabapentin and he states that he has already done this because he did not find it working effectively. Patient was counseled to let our office know if this does provide additional improvement and we will take over this if need be. Patient agrees with this plan of care. Patient is on blood thinners and was counseled that we will have to stop this prior to the cervical epidural injection. Patient will be scheduled for a FABY C6-C7 under fluoroscopy. Patient has been instructed to contact the clinic with any concerns before the next appointment. Dr. Patel has reviewed this note and agrees with this plan of care. This note was dictated using voice recognition software and make contain errors or omissions. All injections are used with Lidocaine or Bupivacaine and Depo Medrol.
== END 2024-02-12 23:59 | disposition home or self-care (01) ==
PROVIDERS: PCP Family Medicine; Visit Provider Nurse Practitioner Family
DX: G89.4 Chronic pain syndrome; M50.10 Cervical disc disorder with radiculopathy, unspecified cervical region; Z79.899 Other long term (current) drug therapy
CPT/HCPCS: 99212; G0463

== ENCOUNTER 2024-02-27 08:00 | Day surgery (SDC) | payer MEDICARE, OTHER, SELFPAY ==
[2024-02-27 08:20] VITALS: BP 120/67; PULSE 60; RESP 16; TEMP 36.7; O2SAT 96; BMI 35.5
[2024-02-27] MEDS: methylPREDNISolone ACETATE 80MG/ML VIAL 80 MG (09:02)
[2024-02-27 09:03] VITALS: BP 134/68; PULSE 67; RESP 18; O2SAT 97
[2024-02-27 09:04] VITALS: BP 134/68; PULSE 67; RESP 18; O2SAT 97
[2024-02-27 09:11] VITALS: BP 135/71; PULSE 64; RESP 16; O2SAT 96
[2024-02-27] MEDS: IOPAMIDOL-200 (41%);10ML VIAL 10 ML IV (10:04)
--- NOTE | 2024-02-27 10:08 | P.PCN_ITS ---
Procedure Date: 02/27/24 Time: 09:00 Anesthesiologist:: Carter Dixon CRNA Complications:: None Pre-procedure Diagnosis:: Degenerative disc cervical spine multilevels. Cervical radiculopathy. Post-procedure Diagnosis:: Same. Indications for Procedure:: Patient is a pleasant 78-year-old male who comes our clinic today for cervical epidural steroid injection. He reports his first cervical epidural provided significant relief for 10 days. Today he describes posterior cervical neck pain as well as bilateral shoulder and arm radicular symptoms. He rates his pain 6/10. Procedure Details:: Procedure:Cervical epidural steroid injection Informed consent was obtained and the risks and benefits of the procedure were explained to the patient. The patient was taken to the procedure room and noninvasive monitors placed, including noninvasive blood pressure cuff and pulse oximeter. The neck was prepped using Chloraprep as a cleansing solution. The C6- C7 interspace was viewed using fluroscopy. The skin and subcutaneous tissues were anesthetized using lidocaine 1.5% and a 25-gauge needle. After this an 18- gauge Touhy epidural needle was placed into the C6-C7 interspace under fluroscopy guidance and advanced using loss of resistance to air until the epidural space was encountered. After confirmation of needle placement in the epidural space using contrast dye, a solution containing normal saline, 2 mL and Depo-Medrol 80 mg was incrementally injected into the cervical epidural space.~ The patient tolerated the procedure well with no complications. The patient was observed in the Pain Clinic and then discharged home neurologically intact. Plan and Disposition:: Patient was discharged without incident.
== END 2024-02-27 09:11 | disposition home or self-care (01) ==
LOC: SC.PAINP 08:01
PROVIDERS: PCP Family Medicine; Visit Provider Nurse Anesthetist, Certified Registered
DX: M50.30 Other cervical disc degeneration, unspecified cervical region (principal); M54.12 Radiculopathy, cervical region
CPT/HCPCS: 62321; J1010; Q9966

== ENCOUNTER 2024-03-11 10:44 | Outpatient (POV) | payer MEDICARE, OTHER, SELFPAY ==
--- NOTE | 2024-03-11 11:42 | A.OFFVIS_ITS ---
[facility] Disclaimer: The information contained in this section may have been updated after the patient was seen, as this information can be updated by other users. Medical History Bilateral cataracts Prostate cancer Surgical History History of appendectomy Status post double vessel coronary artery bypass Family History Other Cancer Coronary artery disease Hypertension Stroke Social History Smoking Status: Former smoker alcohol intake: never substance use type: denies use current occupational status: retired Travel in the last 8 weeks: None household members: spouse housing: house marital status: caffeine: No PM Subjective & Objective Subjective Subjective:: Patient is a pleasant 78-year-old male who presents today for follow-up of cervical epidural steroid injection C6-C7 on 02/27/2024. Today he rates his pain a 7 out of 10. Patient does state that he had about 3 to 4 days of improvement at about 50% however he is back to his baseline. He does state that he is having more pain in his low back with numbness and tingling going into his lower extremities. He does state the pain interferes with his ability to perform activities of daily living such as cooking and cleaning. Patient has tried and failed conservative therapy including continued at home stretching exercise for longer than 12 weeks. Patient does state that the pregabalin we sent in a 50 mg twice a day did still cause significant fatigue. He states that he did not continue it and wanted to talk to our office first. He does state that he still has this medication available. He does also state that he is scheduled to see orthopedic provider on the to follow-up his most recent [facility] imaging that did show bone spurs that were putting pressure on possible nerves. Patient does also state he continues to use his Voltaren gel daily and does use his TENS unit occasionally for temporary relief. His Jorje has been reviewed and is appropriate. Review of Systems: General: No recent weight changes, no fever, no sleep disturbances Respiratory: No cough, no shortness of air, no recurring pulmonary infections Cardiovascular/peripheral vascular: No chest pain, no palpitations, no edema, no shortness of breath Gastrointestinal: No new onset incontinence, normal bowel movements reported Genitourinary: No new onset incontinence Musculoskeletal: Low back pain, leg pain Psychiatric: [Normal mood/affect] Neurological: [Denies weakness in extremities], [denies balance issues] Pain at rest (0-10 scale): 7 Objective Objective:: Physical Exam: General: Alert and oriented x3, no acute distress, pleasant and cooperative Lungs: Respirations even and unlabored, symmetrical chest expansion Eyes: PERRL Musculoskeletal: Flexion and extension of lumbar [spine] somewhat guarded second mahnaz to pain, [antalgic gait noted] positive leg raise Neurological: Speech clear, no gross sensory deficit CLINICAL HISTORY: back pain. bilateral leg weakness. hx prostate cancer with radiation 9 years ago. urinary incontinence. bilateral leg pain, numbness, and tingling. FINDINGS: Multiplanar MR imaging of the lumbar spine was performed without contrast. On the sagittal T2-weighted images, disc degeneration is seen at multiple levels. The vertebral alignment is normal. There is no evidence of fracture. There is a hemangioma in L3. The conus has an unremarkable appearance. No significant canal stenosis is identified. T11-T12: There is no significant canal stenosis or neural foraminal narrowing. L1-2: An annular bulge is present. There is no significant canal stenosis or neural foraminal narrowing. L2-3: An annular bulge is present. There is no significant canal stenosis or neural foraminal narrowing. L3-4: An annular bulge is present. There is no significant canal stenosis or neural foraminal narrowing. L4-5: There is an annular bulge, facet arthropathy and vertebral osteophytes. There is a right posterolateral disc protrusion. There is moderate right and mild left neural foraminal narrowing. L5-S1: There is an annular bulge and facet arthropathy. There is mild right and moderate left neural foraminal narrowing. IMPRESSION: Multilevel degenerative disc disease with areas of neural foraminal narrowing. Right posterolateral disc protrusion at L4-L5 without significant central canal stenosis. Reviewed, Interpreted and Dictated by Zay Gilmore III, MD Transcribed by Dante Thomas Authenticated and [facility] Has patient had previous pain injection?: Yes Percent improvement in pain since last injection: 50% Conservative treatment options previously tried: Home exercise plan Length of treatment: Longer than 12 weeks Meds Home Medications and Allergies Home Medications ?Medication ?Instructions ?Recorded ?Confirmed ?Type B-complex with vitamin C (Super B 1 tab PO .q day Supplement 06/06/17 02/27/24 History Complex-Vitamin C tablet) aspirin 81 mg tablet,delayed 81 mg PO ONCE heart. 06/06/17 02/27/24 History release cholecalciferol (vitamin D3) 50 2,000 unit PO ONCE Supplement 06/06/17 02/27/24 History mcg (2,000 unit) capsule clopidogrel 75 mg tablet 75 mg PO ONCE heart. 06/06/17 02/27/24 History diclofenac sodium 1 % topical gel 2 g topical QID , 06/06/17 02/27/24 History (Voltaren) nitroglycerin 0.4 mg sublingual 0.4 mg sublingual Q5M PRN cp 06/06/17 02/27/24 History tablet omeprazole magnesium 20 mg 20 mg PO ONCE stomach 06/06/17 02/27/24 History capsule,delayed release tramadol 37.5 mg-acetaminophen 325 1 tab PO Q4-6H PRN pain 06/06/17 02/27/24 History mg tablet (Ultracet) albuterol sulfate 90 mcg/actuation 2 inh inhalation Q6H PRN Breathing 01/05/23 02/27/24 History breath activated powder inhaler Problems donepezil 5 mg tablet 5 mg PO DAILY 01/05/23 02/27/24 History fluticasone 250 mcg-salmeterol 50 1 inh inhalation BID PRN Breathing 01/05/23 02/27/24 History mcg/dose blistr powdr for Problems inhalation (Advair Diskus) furosemide 40 mg tablet 40 mg PO BID 01/05/23 02/27/24 History isosorbide mononitrate 30 mg 30 mg PO DAILY Chest Pain 01/05/23 02/27/24 History tablet,extended release 24 hr losartan 50 mg tablet 50 mg PO BID 01/05/23 02/27/24 History metformin 500 mg tablet 500 mg PO DAILY 01/05/23 02/27/24 History rosuvastatin 40 mg tablet 40 mg PO DAILY 01/05/23 02/27/24 History spironolactone 25 mg tablet 25 mg PO DAILY 01/05/23 02/27/24 History gabapentin 100 mg capsule See Rx Instructions PO .COMPLEX 04/27/23 02/27/24 History pregabalin 50 mg capsule 50 mg PO BID #28 caps 02/12/24 02/27/24 Rx New Prescriptions to Start Prescriptions: Allergies Allergy/AdvReac Type Severity Reaction Status Date / Time Penicillins Allergy Intermediate I-RASH Verified 11/22/23 08:14 codeine Allergy Unknown AFFECTS Verified 11/22/23 08:14 HEART Assessment and Plan *Assessment and plan (1) Degenerative disc disease, lumbar: Status: Acute Category: Medical Code(s): M51.36 - Other intervertebral disc degeneration, lumbar region (2) Lumbar radiculopathy: Status: Acute Category: Medical Code(s): M54.16 - Radiculopathy, lumbar region Plan Patient is experiencing worsening pain in his low back with numbness and tingling going down into his lower extremities. He does have limited range of motion of his lumbar spine with a positive leg raise. I did discuss with the patient that he may benefit from a lumbar epidural steroid injection. Risk and benefits were discussed with the patient and he would like to proceed forward with this plan of care. Patient has tried and failed conservative therapy including continued at home stretching exercise for longer than 12 weeks. I did also discuss with the patient that I really do believe that he would benefit from a intrathecal pain pump trial in the future due to his chronic neck and low back pain. Patient is currently on tramadol however does not get significant relief with this medication. We will follow-up with this at future visits. I did group home counselor the patient to cut his pregabalin 50 mg tablets in half and see if the 25 mg is better for his overall symptoms and does not cause the fatigue. Patient agrees with this plan of care. Patient will be scheduled for an LESI L4-L5 under fluoroscopy. Patient has been instructed to contact the clinic with any concerns before the next appointment. Dr. Patel has reviewed this note and agrees with this plan of care. This note was dictated using voice recognition software and make contain errors or omissions. All injections are used with Lidocaine or Bupivacaine and Depo Medrol.
[2024-03-11 11:56] VITALS: BP 135/65; PULSE 56; RESP 16; O2SAT 98; BMI 35.5
== END 2024-03-11 23:59 | disposition home or self-care (01) ==
LOC: SC.PAIN 10:45
PROVIDERS: PCP Family Medicine; Visit Provider Nurse Practitioner Family
DX: M51.16 Intervertebral disc disorders with radiculopathy, lumbar region (principal); Z87.891 Personal history of nicotine dependence; Z73.89 Other problems related to life management difficulty; Z79.899 Other long term (current) drug therapy
CPT/HCPCS: 99212; G0463

== ENCOUNTER 2024-04-09 08:18 | Day surgery (SDC) | payer MEDICARE, OTHER, SELFPAY ==
[2024-04-09 08:45] VITALS: BP 132/57; PULSE 64; RESP 16; TEMP 36.4; O2SAT 97; BMI 35.5
--- NOTE | 2024-04-09 09:07 | P.PCN_ITS ---
Procedure Date: 04/09/24 Time: 09:05 Anesthesiologist:: Carter Dixon CRNA Complications:: None Pre-procedure Diagnosis:: Degenerative disc lumbar spine multilevels. Lumbar radiculopathy. Disc bulge L4-5, L5-S1. Lumbar spondylosis. Multilevel lumbar facet arthropathy. Post-procedure Diagnosis:: Same. Indications for Procedure:: Patient comes to clinic today for lumbar epidural steroid injection at the L4-5 level. Patient describes low lumbar back pain as constant, dull, aching. Eloy rose also reports bilateral hip and leg radicular symptoms at times. Patient rates his pain 7/10. Patient reports pain intensifies with standing, ambulating, sitting for any length of time. Procedure Details:: Procedure: Lumbar epidural steroid injection under fluoroscopy Informed consent was obtained and the risks and benefits of the procedure were explained to the patient. The patient was taken to the procedure room and noninvasive monitors placed, including noninvasive blood pressure cuff and pulse oximeter. The back was viewed using C-arm Fluoroscopy and prepped using Chloraprep as a cleansing solution and the L4-L5 interspace was palpated. Skin and subcutaneous tissues were anesthetized using lidocaine 1.5% and a 25-gauge needle. After this, an 18-gauge Touhy epidural needle was placed into the L4-L5 interspace and advanced using fluoroscopic guidance and loss of resistance to air until the epidural space was encountered. After confirmation of needle placement in the epidural space, with dye, a solution containing normal saline, 3 mL and Depo-Medrol 80 mg were incrementally injected into the lumbar epidural space. The patient tolerated the procedure well with no complications. The patient was observed in the Pain Clinic and then discharged home neurologically intact. Plan and Disposition:: Patient was discharged without incident.
[2024-04-09 09:10] VITALS: BP 133/70; PULSE 62; RESP 18; O2SAT 96
[2024-04-09] MEDS: methylPREDNISolone ACETATE 80MG/ML VIAL 80 MG (09:10)
[2024-04-09 09:14] VITALS: BP 133/70; PULSE 62; RESP 18; O2SAT 96
[2024-04-09 09:18] VITALS: BP 144/63; PULSE 64; RESP 16; O2SAT 91
== END 2024-04-09 09:18 | disposition home or self-care (01) ==
PROVIDERS: PCP Family Medicine; Visit Provider Nurse Anesthetist, Certified Registered
DX: M51.16 Intervertebral disc disorders with radiculopathy, lumbar region (principal); M47.26 Other spondylosis with radiculopathy, lumbar region
CPT/HCPCS: 62323; J1010

== ENCOUNTER 2024-04-19 07:36 | Outpatient (CLI) | payer MEDICARE, OTHER, SELFPAY ==
--- NOTE | 2024-04-19 07:39 | MR_ITS ---
FINAL REPORT TECHNIQUE: Multiplanar MR without gadolinium enhancement CLINICAL HISTORY: CERVICAL DDD. PAIN WHEN TURNING HEAD FROM SIDE TO SIDE. RIGHT ARM NUMBNESS AND TINGLING. COMPARISON: 07/15/2023 FINDINGS: Limited images of the posterior fossa are unremarkable. Alignment is normal. Cervical spinal cord shows normal signal and contour. C2-3: There is no evidence of canal stenosis or neural foraminal narrowing. C3-4: A minimal annular bulge is present with a tiny central disc protrusion. There is mild neural foraminal narrowing, greater on the left than on the right. C4-5: There is no evidence of canal stenosis or neural foraminal narrowing. C5-6: A mild annular bulge is present with mild facet arthropathy. C6-7: A minimal annular bulge is present without evidence of canal stenosis or neural foraminal narrowing. C7-T1: A minimal annular bulge is present without evidence of canal stenosis or neural foraminal narrowing. IMPRESSION: Stable mild multilevel degenerative change as described above, without significant change since the prior MRI of June 2023. Reviewed, Interpreted and Dictated by Evangelina Cantor MD Transcribed by Falguni Leo Authenticated and [facility]
== END 2024-04-19 23:59 | disposition home or self-care (01) ==
LOC: RAD 07:37
PROVIDERS: PCP Family Medicine; Visit Provider Orthopaedic Surgery Adult Reconstructive Orthopaedic Surgery
DX: M50.30 Other cervical disc degeneration, unspecified cervical region (principal)
CPT/HCPCS: 72141

== ENCOUNTER 2024-04-22 08:35 | Outpatient (POV) | payer MEDICARE, OTHER, SELFPAY ==
--- NOTE | 2024-04-22 09:02 | EXP.PAIN.SOA ---
[facility] Disclaimer: The information contained in this section may have been updated after the patient was seen, as this information can be updated by other users. Medical History Bilateral cataracts Prostate cancer Surgical History History of appendectomy Status post double vessel coronary artery bypass Family History Other Cancer Coronary artery disease Hypertension Stroke Social History Smoking Status: Former smoker alcohol intake: never substance use type: denies use current occupational status: other Travel in the last 8 weeks: None household members: spouse housing: house marital status: caffeine: No PM Subjective & Objective Subjective Subjective:: Patient is a pleasant 78-year-old male who presents today for follow-up of his lumbar epidural steroid injection L4-L5 on 04/09/2024. Today he rates his pain a 7 out of 10. He denies any new trauma or injury. He does state that this injection did not seem like it worked as well as previous ones. Patient states that he ended up having to have an MRI last week for his neck and the prolonged positioning really did not number on his back overall. Patient states he still has the chronic low back and neck pain symptoms with numbness and tingling that is worse in his right hand. Patient does state he is just been very busy with the holidays. Patient is prescribed tramadol 37.5 mg with acetaminophen 325 mg from his primary care and has been prescribed pregabalin 50 mg twice a day from our office. Patient did state that the 50 mg tablet did make him very tired and fatigued. At her last visit we did discuss about cutting it in half. He does state that he has not had enough time to try this yet. He does still uses Voltaren gel and TENS unit his Jorje has been reviewed and is appropriate. Review of Systems: General: No recent weight changes, no fever, no sleep disturbances Respiratory: No cough, no shortness of air, no recurring pulmonary infections Cardiovascular/peripheral vascular: No chest pain, no palpitations, no edema, no shortness of breath Gastrointestinal: No new onset incontinence, normal bowel movements reported Genitourinary: No new onset incontinence Musculoskeletal: Low back pain, neck pain Psychiatric: [Normal mood/affect] Neurological: [Denies weakness in extremities], [denies balance issues] Pain at rest (0-10 scale): 7 Objective Objective:: Physical Exam: General: Alert and oriented x3, no acute distress, pleasant and cooperative Lungs: Respirations even and unlabored, symmetrical chest expansion Eyes: PERRL Musculoskeletal: Flexion and extension of lumbar [spine] somewhat guarded secondary to pain, [antalgic gait noted] Neurological: Speech clear, no gross sensory deficit Has patient had previous pain injection?: Yes Percent improvement in pain since last injection: Temporary Conservative treatment options previously tried: Home exercise plan Length of treatment: Longer than 12 weeks Meds Home Medications and Allergies Home Medications ?Medication ?Instructions ?Recorded ?Confirmed ?Type B-complex with vitamin C (Super B 1 tab PO .q day Supplement 06/06/17 04/09/24 History Complex-Vitamin C tablet) aspirin 81 mg tablet,delayed 81 mg PO ONCE heart. 06/06/17 04/09/24 History release cholecalciferol (vitamin D3) 50 2,000 unit PO ONCE Supplement 06/06/17 04/09/24 History mcg (2,000 unit) capsule clopidogrel 75 mg tablet 75 mg PO ONCE heart. 06/06/17 04/09/24 History diclofenac sodium 1 % topical gel 2 g topical QID , 06/06/17 04/09/24 History (Voltaren) nitroglycerin 0.4 mg sublingual 0.4 mg sublingual Q5M PRN cp 06/06/17 04/09/24 History tablet omeprazole magnesium 20 mg 20 mg PO ONCE stomach 06/06/17 04/09/24 History capsule,delayed release tramadol 37.5 mg-acetaminophen 325 1 tab PO Q4-6H PRN pain 06/06/17 04/09/24 History mg tablet (Ultracet) albuterol sulfate 90 mcg/actuation 2 inh inhalation Q6H PRN Breathing 01/05/23 04/09/24 History breath activated powder inhaler Problems donepezil 5 mg tablet 5 mg PO DAILY 01/05/23 04/09/24 History fluticasone 250 mcg-salmeterol 50 1 inh inhalation BID PRN Breathing 01/05/23 04/09/24 History mcg/dose blistr powdr for Problems inhalation (Advair Diskus) furosemide 40 mg tablet 40 mg PO BID 01/05/23 04/09/24 History isosorbide mononitrate 30 mg 30 mg PO DAILY Chest Pain 01/05/23 04/09/24 History tablet,extended release 24 hr losartan 50 mg tablet 50 mg PO BID 01/05/23 04/09/24 History metformin 500 mg tablet 500 mg PO DAILY 01/05/23 04/09/24 History rosuvastatin 40 mg tablet 40 mg PO DAILY 01/05/23 04/09/24 History spironolactone 25 mg tablet 25 mg PO DAILY 01/05/23 04/09/24 History gabapentin 100 mg capsule See Rx Instructions PO .COMPLEX 04/27/23 04/09/24 History pregabalin 50 mg capsule 50 mg PO BID #28 caps 02/12/24 04/09/24 Rx New Prescriptions to Start Prescriptions: Allergies Allergy/AdvReac Type Severity Reaction Status Date / Time Penicillins Allergy Intermediate I-RASH Verified 11/22/23 08:14 codeine Allergy Unknown AFFECTS Verified 11/22/23 08:14 HEART Assessment and Plan *Assessment and plan (1) Degenerative disc disease, cervical: Status: Acute Category: Medical Code(s): M50.30 - Other cervical disc degeneration, unspecified cervical region (2) Lumbar spondylosis: Status: Acute Category: Medical Code(s): M47.816 - Spondylosis without myelopathy or radiculopathy, lumbar region (3) Lumbar facet arthropathy: Status: Acute Category: Medical Code(s): M47.816 - Spondylosis without myelopathy or radiculopathy, lumbar region Plan Patient only had temporary relief with this epidural when in past he has had more than 50% relief that has at least lasted for longer periods of time. I did discuss with the patient to try the pregabalin at the 25 mg dosage and to try it at bedtime to see if it minimizes fatigue. Patient agrees with this plan of care. Patient will return to clinic in 1 month for reevaluation of symptoms and plan of care. Patient has been instructed to contact the clinic with any concerns before the next appointment. Dr. Patel has reviewed this note and agrees with this plan of care. This note was dictated using voice recognition software and make contain errors or omissions. All injections are used with Lidocaine, Bupivacaine and Depo Medrol. Occasionally urine drug screen is needed to verify patient's compliance with our office pain contract. This is ordered based off specific treatments related to chronic pain with the potential to abuse certain medications.
[2024-04-22 10:53] VITALS: BP 126/70; PULSE 75; RESP 14; O2SAT 97; BMI 35.5
== END 2024-04-22 23:59 | disposition home or self-care (01) ==
LOC: SC.PAIN 08:39
PROVIDERS: PCP Family Medicine; Visit Provider Nurse Practitioner Family
DX: M50.30 Other cervical disc degeneration, unspecified cervical region (principal); M47.816 Spondylosis without myelopathy or radiculopathy, lumbar region; Z87.891 Personal history of nicotine dependence; Z79.899 Other long term (current) drug therapy
CPT/HCPCS: 99212; G0463

== ENCOUNTER 2024-05-22 09:32 | Outpatient (POV) | payer MEDICARE, OTHER, SELFPAY ==
--- NOTE | 2024-05-22 10:30 | EXP.PAIN.SOA ---
[facility] Disclaimer: The information contained in this section may have been updated after the patient was seen, as this information can be updated by other users. Medical History Bilateral cataracts Prostate cancer Surgical History History of appendectomy Status post double vessel coronary artery bypass Family History Other Cancer Coronary artery disease Hypertension Stroke Social History Smoking Status: Former smoker alcohol intake: never substance use type: denies use current occupational status: other Travel in the last 8 weeks: None household members: spouse housing: house marital status: caffeine: No PM Subjective & Objective Subjective Subjective:: Patient is a pleasant 78-year-old male who presents today for follow-up. Today he rates his pain a 7 out of 10. He denies any new trauma or injury. Patient does state that he continues to have significant issues with his neck and his low back. He does state right now his neck with radiating numbness and tingling that is more prominent down the right arm is bothering him the most. He states it is constant and does interfere with his ability perform activities of daily living such as cooking and cleaning. 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 Patient has seen orthopedics in the past and has been told he does have a combination involving carpal tunnel syndrome and degenerative changes of his cervical spine. 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 Patient does get significant relief with epidurals and his last cervical epidural was in January. He does typically get at least 50% improvement however it does not generally get of longstanding relief. He does state that it does improve his overall function however and would like to see about getting scheduled for repeat injection. Patient was given pregabalin 50 mg from our office however states that it was more sedating than what he would like. Patient is prescribed tramadol with acetaminophen from his PCP. His Jorje has been reviewed and is appropriate. Review of Systems: General: No recent weight changes, no fever, no sleep disturbances Respiratory: No cough, no shortness of air, no recurring pulmonary infections Cardiovascular/peripheral vascular: No chest pain, no palpitations, no edema, no shortness of breath Gastrointestinal: No new onset incontinence, normal bowel movements reported Genitourinary: No new onset incontinence Musculoskeletal: Neck pain, right arm pain Psychiatric: [Normal mood/affect] Neurological: [Denies weakness in extremities], [denies balance issues] Pain at rest (0-10 scale): 7 Objective Objective:: Physical Exam: General: Alert and oriented x3, no acute distress, pleasant and cooperative Lungs: Respirations even and unlabored, symmetrical chest expansion Eyes: PERRL Musculoskeletal: Flexion and extension of cervical [spine] somewhat guarded secondary to pain, [antalgic gait noted] positive Spurling's test Neurological: Speech clear, no gross sensory deficit Has patient had previous pain injection?: No Conservative treatment options previously tried: Home exercise plan Length of treatment: Longer than 12 weeks Meds Home Medications and Allergies Home Medications ?Medication ?Instructions ?Recorded ?Confirmed ?Type B-complex with vitamin C (Super B 1 tab PO .q day Supplement 06/06/17 04/22/24 History Complex-Vitamin C tablet) aspirin 81 mg tablet,delayed 81 mg PO ONCE heart. 06/06/17 04/22/24 History release cholecalciferol (vitamin D3) 50 2,000 unit PO ONCE Supplement 06/06/17 04/22/24 History mcg (2,000 unit) capsule clopidogrel 75 mg tablet 75 mg PO ONCE heart. 06/06/17 04/22/24 History diclofenac sodium 1 % topical gel 2 g topical QID , 06/06/17 04/22/24 History (Voltaren) nitroglycerin 0.4 mg sublingual 0.4 mg sublingual Q5M PRN cp 06/06/17 04/22/24 History tablet omeprazole magnesium 20 mg 20 mg PO ONCE stomach 06/06/17 04/22/24 History capsule,delayed release tramadol 37.5 mg-acetaminophen 325 1 tab PO Q4-6H PRN pain 06/06/17 04/22/24 History mg tablet (Ultracet) albuterol sulfate 90 mcg/actuation 2 inh inhalation Q6H PRN Breathing 01/05/23 04/22/24 History breath activated powder inhaler Problems donepezil 5 mg tablet 5 mg PO DAILY 01/05/23 04/22/24 History fluticasone 250 mcg-salmeterol 50 1 inh inhalation BID PRN Breathing 01/05/23 04/22/24 History mcg/dose blistr powdr for Problems inhalation (Advair Diskus) furosemide 40 mg tablet 40 mg PO BID 01/05/23 04/22/24 History isosorbide mononitrate 30 mg 30 mg PO DAILY Chest Pain 01/05/23 04/22/24 History tablet,extended release 24 hr losartan 50 mg tablet 50 mg PO BID 01/05/23 04/22/24 History metformin 500 mg tablet 500 mg PO DAILY 01/05/23 04/22/24 History rosuvastatin 40 mg tablet 40 mg PO DAILY 01/05/23 04/22/24 History spironolactone 25 mg tablet 25 mg PO DAILY 01/05/23 04/22/24 History gabapentin 100 mg capsule See Rx Instructions PO .COMPLEX 04/27/23 04/22/24 History pregabalin 50 mg capsule 50 mg PO BID #28 caps 02/12/24 04/22/24 Rx New Prescriptions to Start Prescriptions: Allergies Allergy/AdvReac Type Severity Reaction Status Date / Time Penicillins Allergy Intermediate I-RASH Verified 11/22/23 08:14 codeine Allergy Unknown AFFECTS Verified 11/22/23 08:14 HEART Assessment and Plan *Assessment and plan (1) Cervical radiculopathy: Status: Acute Category: Medical Code(s): M54.12 - Radiculopathy, cervical region (2) Chronic pain syndrome: Status: Acute Category: Medical Code(s): G89.4 - Chronic pain syndrome (3) Degenerative disc disease, cervical: Status: Acute Category: Medical Code(s): M50.30 - Other cervical disc degeneration, unspecified cervical region Plan Patient continues to have significant pain with numbness and tingling radiating into his upper extremities. Patient did have limited range of motion of his cervical spine with a positive Spurling's test. I did discuss with the patient the risk and benefits of repeat cervical epidural steroid injection. He would like to proceed forward with this plan of care. Patient had his last cervical epidural in January that did provide more than 50% relief and did ease down the severity of his symptoms. Patient has continued conservative treatment including oral medication, heat and ice, topicals, at home stretching exercise for longer than 12 weeks that was physician guided in between injections. I will also send in a prescription of pregabalin 25 mg at bedtime. Patient will be scheduled for a FABY C5-C6 under fluoroscopy. Patient has been instructed to contact the clinic with any concerns before the next appointment. Dr. Patel has reviewed this note and agrees with this plan of care. This note was dictated using voice recognition software and make contain errors or omissions. All injections are used with Lidocaine, Bupivacaine and Depo Medrol. Occasionally urine drug screen is needed to verify patient's compliance with our office pain contract. This is ordered based off specific treatments related to chronic pain with the potential to abuse certain medications.
[2024-05-22 10:57] VITALS: BP 142/68; PULSE 69; RESP 14; O2SAT 99; BMI 35.5
== END 2024-05-22 23:59 | disposition home or self-care (01) ==
PROVIDERS: PCP Family Medicine; Visit Provider Nurse Practitioner Family
DX: G89.4 Chronic pain syndrome (principal); M50.10 Cervical disc disorder with radiculopathy, unspecified cervical region; Z73.89 Other problems related to life management difficulty; Z79.899 Other long term (current) drug therapy
CPT/HCPCS: 99212; G0463

== ENCOUNTER 2024-06-04 09:18 | Day surgery (SDC) | payer MEDICARE, OTHER, SELFPAY ==
[2024-06-04 09:48] VITALS: BP 129/62; PULSE 73; RESP 16; O2SAT 97; BMI 35.5
--- NOTE | 2024-06-04 10:31 | P.PCN_ITS ---
Procedure Date: 07/03/24 Time: 10:15 Anesthesiologist:: Carter Dixon CRNA Complications:: None Pre-procedure Diagnosis:: Degenerative disc cervical spine multilevels. Cervical radiculopathy. Post-procedure Diagnosis:: Same. Indications for Procedure:: Patient is a very pleasant 78-year-old male who comes our clinic today for cervical epidural steroid injection. Patient describes cervical neck pain as well as bilateral arm radicular symptoms. He rates his pain 7/10. Procedure Details:: Procedure:Cervical epidural steroid injection Informed consent was obtained and the risks and benefits of the procedure were explained to the patient. The patient was taken to the procedure room and noninvasive monitors placed, including noninvasive blood pressure cuff and pulse oximeter. The neck was prepped using Chloraprep as a cleansing solution. The C6- C7 interspace was viewed using fluroscopy. The skin and subcutaneous tissues were anesthetized using lidocaine 1.5% and a 25-gauge needle. After this an 18- gauge Touhy epidural needle was placed into the C6-C7 interspace under fluroscopy guidance and advanced using loss of resistance to air until the epidural space was encountered. After confirmation of needle placement in the epidural space using contrast dye, a solution containing normal saline, 2 mL and Depo-Medrol 80 mg was incrementally injected into the cervical epidural space.~ The patient tolerated the procedure well with no complications. The patient was observed in the Pain Clinic and then discharged home neurologically intact. Plan and Disposition:: Patient was discharged without incident.
[2024-06-04 10:33] VITALS: BP 131/71; PULSE 68; RESP 16; O2SAT 97
[2024-06-04] MEDS: IOPAMIDOL-200 (41%);10ML VIAL 2 ML IV (10:33)
[2024-06-04] MEDS: methylPREDNISolone ACETATE 80MG/ML VIAL 80 MG (10:53)
[2024-06-04 10:59] VITALS: BP 104/74; PULSE 71; RESP 18; O2SAT 94
[2024-06-04 11:01] VITALS: BP 104/74; PULSE 71; RESP 18; O2SAT 94
== END 2024-06-04 10:33 | disposition home or self-care (01) ==
PROVIDERS: PCP Family Medicine; Visit Provider Nurse Anesthetist, Certified Registered
DX: M50.30 Other cervical disc degeneration, unspecified cervical region (principal); M54.12 Radiculopathy, cervical region
CPT/HCPCS: 62321; J1010; Q9966

== ENCOUNTER 2024-06-19 08:19 | Outpatient (POV) | payer MEDICARE, OTHER, SELFPAY ==
[2024-06-19 08:49] VITALS: BP 154/65; PULSE 99; RESP 18; O2SAT 98; BMI 35.0
--- NOTE | 2024-06-19 09:04 | EXP.PAIN.SOA ---
[facility] Disclaimer: The information contained in this section may have been updated after the patient was seen, as this information can be updated by other users. Medical History Bilateral cataracts Prostate cancer Surgical History History of appendectomy Status post double vessel coronary artery bypass Family History Other Cancer Coronary artery disease Hypertension Stroke Social History Smoking Status: Former smoker alcohol intake: never substance use type: denies use current occupational status: other Travel in the last 8 weeks: None household members: spouse housing: house marital status: caffeine: No PM Subjective & Objective Subjective Subjective:: Patient is a pleasant 79-year-old male who presents today for follow-up of cervical epidural steroid injection on 06/04/2024. Today he rates his pain a 6 out of 10. Patient does state that he has had at least 50% improvement following that injection. He states that the pain in his shoulders is not anything like what it had been and that he no longer has the popping sensations and is neck itself. He does state that most of his pain today is all related to his low back and hips. He states since having this injection and seeing improvement in his neck symptoms that he does really noticed that overall low back and hip symptoms. He describes it as a constant aching, throbbing sensation that is worse with increased activity or certain positions. Patient does state that at night when he lays down it does seem to be worse and that he frequently has to toss and turn due to the worsening pain on his hips. He states the pain is interfering with his ability perform activities of daily living such as cooking and cleaning. Patient denies any other changes. Patient is prescribed tramadol from an outside provider and pregabalin 25 mg at bedtime from our office. Patient does use Voltaren gel on a regular basis. His Jorje has been reviewed and is appropriate. Review of Systems: General: No recent weight changes, no fever, no sleep disturbances Respiratory: No cough, no shortness of air, no recurring pulmonary infections Cardiovascular/peripheral vascular: No chest pain, no palpitations, no edema, no shortness of breath Gastrointestinal: No new onset incontinence, normal bowel movements reported Genitourinary: No new onset incontinence Musculoskeletal: Low back pain, bilateral hip pain Psychiatric: [Normal mood/affect] Neurological: [Denies weakness in extremities], [denies balance issues] Pain at rest (0-10 scale): 6 Objective Objective:: Physical Exam: General: Alert and oriented x3, no acute distress, pleasant and cooperative Lungs: Respirations even and unlabored, symmetrical chest expansion Eyes: PERRL Musculoskeletal: Flexion and extension of lumbar [spine] somewhat guarded secondary to pain, [antalgic gait noted] point tenderness along bilateral greater trochanteric bursa's Neurological: Speech clear, no gross sensory deficit Has patient had previous pain injection?: Yes Percent improvement in pain since last injection: 50% Conservative treatment options previously tried: Home exercise plan Length of treatment: Longer than 12 weeks Meds Home Medications and Allergies Home Medications ?Medication ?Instructions ?Recorded ?Confirmed ?Type B-complex with vitamin C (Super B 1 tab PO .q day Supplement 06/06/17 06/19/24 History Complex-Vitamin C tablet) aspirin 81 mg tablet,delayed 81 mg PO ONCE heart. 06/06/17 06/19/24 History release cholecalciferol (vitamin D3) 50 2,000 unit PO ONCE Supplement 06/06/17 06/19/24 History mcg (2,000 unit) capsule clopidogrel 75 mg tablet 75 mg PO ONCE heart. 06/06/17 06/19/24 History diclofenac sodium 1 % topical gel 2 g topical QID , 06/06/17 06/19/24 History (Voltaren) nitroglycerin 0.4 mg sublingual 0.4 mg sublingual Q5M PRN cp 06/06/17 06/19/24 History tablet omeprazole magnesium 20 mg 20 mg PO ONCE stomach 06/06/17 06/19/24 History capsule,delayed release tramadol 37.5 mg-acetaminophen 325 1 tab PO Q4-6H PRN pain 06/06/17 06/19/24 History mg tablet (Ultracet) albuterol sulfate 90 mcg/actuation 2 inh inhalation Q6H PRN Breathing 01/05/23 06/19/24 History breath activated powder inhaler Problems donepezil 5 mg tablet 5 mg PO DAILY 01/05/23 06/19/24 History fluticasone 250 mcg-salmeterol 50 1 inh inhalation BID PRN Breathing 01/05/23 06/19/24 History mcg/dose blistr powdr for Problems inhalation (Advair Diskus) furosemide 40 mg tablet 40 mg PO BID 01/05/23 06/19/24 History isosorbide mononitrate 30 mg 30 mg PO DAILY Chest Pain 01/05/23 06/19/24 History tablet,extended release 24 hr losartan 50 mg tablet 50 mg PO BID 01/05/23 06/19/24 History metformin 500 mg tablet 500 mg PO DAILY 01/05/23 06/19/24 History rosuvastatin 40 mg tablet 40 mg PO DAILY 01/05/23 06/19/24 History spironolactone 25 mg tablet 25 mg PO DAILY 01/05/23 06/19/24 History gabapentin 100 mg capsule See Rx Instructions PO .COMPLEX 04/27/23 06/19/24 History pregabalin 50 mg capsule 50 mg PO BID #28 caps 02/12/24 06/19/24 Rx pregabalin 25 mg capsule 25 mg PO HS #14 caps 05/22/24 06/19/24 Rx New Prescriptions to Start Prescriptions: Allergies Allergy/AdvReac Type Severity Reaction Status Date / Time Penicillins Allergy Intermediate I-RASH Verified 11/22/23 08:14 codeine Allergy Unknown AFFECTS Verified 11/22/23 08:14 HEART Assessment and Plan *Assessment and plan (1) Greater trochanteric bursitis of both hips: Status: Acute Category: Medical Code(s): M70.61 - Trochanteric bursitis, right hip; M70.62 - Trochanteric bursitis, left hip Plan Patient is experiencing worsening pain in his low back and bilateral hips with limited range of motion. Patient did have point tenderness along his bilateral trochanteric bursa's during today's visit. I did discuss with the patient that I do believe he would benefit from bilateral bursa injections. Risk and benefits were discussed with the patient and he would like to proceed forward with this plan of care. Patient has tried and failed conservative therapy including continued at home stretching exercise for longer than 12 weeks and between injections. Patient will be scheduled for bilateral bursa injections under fluoroscopy. Patient has been instructed to contact the clinic with any concerns before the next appointment. Dr. Patel has reviewed this note and agrees with this plan of care. This note was dictated using voice recognition software and make contain errors or omissions. All injections are used with Lidocaine, Bupivacaine and Depo Medrol. Occasionally urine drug screen is needed to verify patient's compliance with our office pain contract. This is ordered based off specific treatments related to chronic pain with the potential to abuse certain medications.
== END 2024-06-19 23:59 | disposition home or self-care (01) ==
LOC: SC.PAIN 08:22
PROVIDERS: PCP Family Medicine; Visit Provider Nurse Practitioner Family
DX: M70.61 Trochanteric bursitis, right hip (principal); M70.62 Trochanteric bursitis, left hip; Z73.89 Other problems related to life management difficulty; Z79.899 Other long term (current) drug therapy
CPT/HCPCS: 99212; G0463

== ENCOUNTER 2024-07-16 08:02 | Day surgery (SDC) | payer MEDICARE, OTHER, SELFPAY ==
[2024-07-16 08:20] VITALS: BP 114/56; PULSE 68; RESP 16; TEMP 36.6; O2SAT 98; BMI 36.6
[2024-07-16] MEDS: methylPREDNISolone ACETATE 80MG/ML VIAL 80 MG (08:43)
[2024-07-16] MEDS: BUPIVACAINE 0.25% 10ML INJ 25 MG IJ (08:43)
[2024-07-16] MEDS: LIDOCAINE 1% 5ML PF VIAL 5 ML (08:43)
[2024-07-16 08:44] VITALS: BP 105/64; PULSE 72; RESP 16; O2SAT 92
[2024-07-16 08:45] VITALS: BP 109/54; PULSE 67; RESP 18; O2SAT 95
[2024-07-16 08:46] VITALS: BP 145/52; PULSE 84; RESP 18; O2SAT 95
--- NOTE | 2024-07-16 09:08 | P.PCN_ITS ---
Procedure Date: 07/16/24 Time: 08:30 Anesthesiologist:: Carter Dixon CRNA Complications:: None Pre-procedure Diagnosis:: Bilateral trochanteric bursitis Post-procedure Diagnosis:: Same Indications for Procedure:: Patient very pleasant 79-year-old male who comes our clinic today for bilateral trochanteric bursa injections of steroid and local anesthetic. Patient describes lateral hip pain bilaterally. He rates his pain 7/10. Patient has extreme point tenderness over the bilateral trochanteric bursa. Procedure Details:: Procedure: Bilateral trochanteric bursa joint injections under fluoroscopy Informed consent was obtained and the risks and benefits of the procedure were explained to the patient.~ The patient was taken to the procedure room and noninvasive monitors were placed including a noninvasive blood pressure cuff and pulse oximeter.~ The patient was placed prone on the procedure table. Both hips were cleansed using Betadine as a cleansing solution. C-arm fluoroscopy was used to view the right trochanteric bursa joint.~ The skin and subcutaneous tissues were anesthetized using lidocaine 1.5% and a 25-gauge needle.~ After this, a 22- gauge spinal needle was inserted under fluoroscopic guidance into the inferior aspect of the right trochanteric bursa.~ Omnipaque dye was injected and good spread was seen throughout the joint.~ After this, approximately 5 mL of bupivacaine, 0.25% and Depo-Medrol, 40 mg was incrementally injected into the right sacroiliac joint. We then moved to the left trochanteric bursa joint.~ The skin and subcutaneous tissues were anesthetized using lidocaine 1.5% and a 25-gauge needle.~ After this, a 22-gauge spinal needle was inserted under fluoroscopic guidance into the inferior aspect of the left trochanteric bursa joint.~ Omnipaque dye was injected and good spread was seen throughout the joint. After this, approximately 5 mL of bupivacaine, 0.25% and Depo-Medrol, 40 mg was incrementally injected into the left sacroiliac joint.~ The patient tolerated the procedure well with no complications. The patient was observed in the Pain Clinic and then was discharged home neurologically intact. Plan and Disposition:: Patient was discharged without incident.
== END 2024-07-16 08:44 | disposition home or self-care (01) ==
LOC: SC.PAINP 08:04
PROVIDERS: PCP Family Medicine; Visit Provider Nurse Anesthetist, Certified Registered
DX: M70.61 Trochanteric bursitis, right hip (principal); M70.62 Trochanteric bursitis, left hip
CPT/HCPCS: 20610; 77002; J1010

== ENCOUNTER 2024-07-29 09:08 | Outpatient (POV) | payer MEDICARE, OTHER, SELFPAY ==
--- NOTE | 2024-07-29 09:18 | A.OFFVIS_ITS ---
[facility] Disclaimer: The information contained in this section may have been updated after the patient was seen, as this information can be updated by other users. Medical History Bilateral cataracts Prostate cancer Surgical History History of appendectomy Status post double vessel coronary artery bypass Family History Other Cancer Coronary artery disease Hypertension Stroke Social History Smoking Status: Former smoker alcohol intake: never substance use type: denies use current occupational status: other Travel in the last 8 weeks: None household members: spouse housing: house marital status: caffeine: No PM Subjective & Objective Subjective Subjective:: Patient is a pleasant 79-year-old male who presents today for follow-up of bilateral trochanteric bursa injections on 07/16/2024. The patient rates his pain today a 7 out of 10. Patient does state that he had 75% relief following these injections however it still only lasted about 3 to 4 days. Patient states that he was right back to his baseline afterwards. He states that with prolonged standing or working the pain increases. He states that he just feels that the injections have helped sometimes but are often very short-lived. Patient is still taking his tramadol from his outside provider and has been pr escribed pregabalin 25 mg at bedtime from our office. We did discuss in the past because the pregabalin caused significant drowsiness to cut these in half. He does state that he has tried this at the lower dosage and still feels like when he wakes up the next day it often still feels like it is carrying over. His Jorje has been reviewed and is appropriate. Review of Systems: General: No recent weight changes, no fever, no sleep disturbances Respiratory: No cough, no shortness of air, no recurring pulmonary infections Cardiovascular/peripheral vascular: No chest pain, no palpitations, no edema, no shortness of breath Gastrointestinal: No new onset incontinence, normal bowel movements reported Genitourinary: No new onset incontinence Musculoskeletal: Chronic low back pain, hip pain, neck pain, right hand numbness tingling Psychiatric: [Normal mood/affect] Neurological: [Denies weakness in extremities], [denies balance issues] Pain at rest (0-10 scale): 7 Objective Objective:: Physical Exam: General: Alert and oriented x3, no acute distress, pleasant and cooperative Lungs: Respirations even and unlabored, symmetrical chest expansion Eyes: PERRL Musculoskeletal: Flexion and extension of lumbar [spine] somewhat guarded secondary to pain, [antalgic gait noted] Neurological: Speech clear, no gross sensory deficit Has patient had previous pain injection?: Yes Percent improvement in pain since last injection: 75% Conservative treatment options previously tried: Home exercise plan Length of treatment: Longer than 12 weeks Meds Home Medications and Allergies Home Medications ?Medication ?Instructions ?Recorded ?Confirmed ?Type B-complex with vitamin C (Super B 1 tab PO .q day Supplement 06/06/17 07/29/24 History Complex-Vitamin C tablet) aspirin 81 mg tablet,delayed 81 mg PO ONCE heart. 06/06/17 07/29/24 History release cholecalciferol (vitamin D3) 50 2,000 unit PO ONCE Supplement 06/06/17 07/29/24 History mcg (2,000 unit) capsule clopidogrel 75 mg tablet 75 mg PO ONCE heart. 06/06/17 07/29/24 History diclofenac sodium 1 % topical gel 2 g topical QID , 06/06/17 07/29/24 History (Voltaren) nitroglycerin 0.4 mg sublingual 0.4 mg sublingual Q5M PRN cp 06/06/17 07/29/24 History tablet omeprazole magnesium 20 mg 20 mg PO ONCE stomach 06/06/17 07/29/24 History capsule,delayed release tramadol 37.5 mg-acetaminophen 325 1 tab PO Q4-6H PRN pain 06/06/17 07/29/24 History mg tablet (Ultracet) albuterol sulfate 90 mcg/actuation 2 inh inhalation Q6H PRN Breathing 01/05/23 07/29/24 History breath activated powder inhaler Problems donepezil 5 mg tablet 5 mg PO DAILY 01/05/23 07/29/24 History fluticasone 250 mcg-salmeterol 50 1 inh inhalation BID PRN Breathing 01/05/23 07/29/24 History mcg/dose blistr powdr for Problems inhalation (Advair Diskus) furosemide 40 mg tablet 40 mg PO BID 01/05/23 07/29/24 History isosorbide mononitrate 30 mg 30 mg PO DAILY Chest Pain 01/05/23 07/29/24 History tablet,extended release 24 hr losartan 50 mg tablet 50 mg PO BID 01/05/23 07/29/24 History metformin 500 mg tablet 500 mg PO DAILY 01/05/23 07/29/24 History rosuvastatin 40 mg tablet 40 mg PO DAILY 01/05/23 07/29/24 History spironolactone 25 mg tablet 25 mg PO DAILY 01/05/23 07/29/24 History gabapentin 100 mg capsule See Rx Instructions PO .COMPLEX 04/27/23 07/29/24 History pregabalin 50 mg capsule 50 mg PO BID #28 caps 02/12/24 07/29/24 Rx pregabalin 25 mg capsule 25 mg PO HS #14 caps 05/22/24 07/29/24 Rx New Prescriptions to Start Prescriptions: Allergies Allergy/AdvReac Type Severity Reaction Status Date / Time Penicillins Allergy Intermediate I-RASH Verified 11/22/23 08:14 codeine Allergy Unknown AFFECTS Verified 11/22/23 08:14 HEART Assessment and Plan *Assessment and plan (1) Lumbar facet arthropathy: Status: Acute Category: Medical Code(s): M47.816 - Spondylosis without myelopathy or radiculopathy, lumbar region (2) Lumbar spondylosis: Status: Acute Category: Medical Code(s): M47.816 - Spondylosis without myelopathy or radiculopathy, lumbar region (3) Degenerative disc disease, cervical: Status: Acute Category: Medical Code(s): M50.30 - Other cervical disc degeneration, unspecified cervical region (4) Greater trochanteric bursitis of both hips: Status: Acute Category: Medical Code(s): M70.61 - Trochanteric bursitis, right hip; M70.62 - Trochanteric bursitis, left hip (5) Degenerative disc disease, lumbar: Status: Acute Category: Medical Code(s): M51.369 - Other intervertebral disc degeneration, lumbar region without mention of lumbar back pain or lower extremity pain (6) Chronic pain syndrome: Status: Acute Category: Medical Code(s): G89.4 - Chronic pain syndrome Plan I did discuss at length with the patient due to his multiple areas of pain including his low back and neck that I do believe he would be a more beneficial candidate of a pump trial. Risk and benefits and educational handouts were given at today's visit. We did discuss at length regarding his improvement with the injections however they have all managed to be very temporary overall. I did discuss that the pump may provide more consistent relief on a day-to-day basis. Patient does feel like that the pain is just increasingly worsening. I will order the patient a psychological evaluation and if he is deemed an appropriate candidate we will proceed forward with the pump trial at a later date. Patient will return to clinic in 1 month. Patient has been instructed to contact the clinic with any concerns before the next appointment. Dr. Patel has reviewed this note and agrees with this plan of care. This note was dictated using voice recognition software and make contain errors or omissions. All injections are used with Lidocaine, Bupivacaine and Depo Medrol. Occasionally urine drug screen is needed to verify patient's compliance with our office pain contract. This is ordered based off specific treatments related to chronic pain with the potential to abuse certain medications.
[2024-07-29 09:25] VITALS: BP 111/62; PULSE 70; RESP 14; O2SAT 98; BMI 36.6
== END 2024-07-29 23:59 | disposition home or self-care (01) ==
LOC: SC.PAIN 09:11
PROVIDERS: PCP Psychiatry & Neurology Sleep Medicine; Visit Provider Nurse Practitioner Family
DX: M47.816 Spondylosis without myelopathy or radiculopathy, lumbar region (principal); M50.30 Other cervical disc degeneration, unspecified cervical region; M70.61 Trochanteric bursitis, right hip; M70.62 Trochanteric bursitis, left hip; M51.369 Other intervertebral disc degeneration, lumbar region without mention of lumbar back pain or lower extremity pain; G89.4 Chronic pain syndrome
CPT/HCPCS: 99212; G0463

== ENCOUNTER 2024-08-28 08:47 | Outpatient (POV) | payer MEDICARE, OTHER, SELFPAY ==
[2024-08-28 09:16] VITALS: BP 120/64; PULSE 67; RESP 18; O2SAT 96; BMI 36.3
--- NOTE | 2024-08-28 09:34 | A.OFFVIS_ITS ---
[facility] Disclaimer: The information contained in this section may have been updated after the patient was seen, as this information can be updated by other users. Medical History Bilateral cataracts Prostate cancer Surgical History History of appendectomy Status post double vessel coronary artery bypass Family History Other Cancer Coronary artery disease Hypertension Stroke Social History Smoking Status: Former smoker alcohol intake: never substance use type: denies use current occupational status: other Travel in the last 8 weeks?: None household members: spouse housing: house marital status: number of children: 3 caffeine: No PM Subjective & Objective Subjective Subjective:: Patient is a pleasant 79-year-old male who presents today for follow-up of his psychological evaluation. Today he rates his pain a 7 out of 10. He denies any new falls or injuries however does state that he went to his yearly physical there at the [facility] and that his provider was out so he saw a different provider. He ended up having elevated blood pressure and was discussing still complains of fatigue and shortness of breath. Patient does state that that provider wanted him to go to the ER for evaluation and have multiple testing such as an EKG and blood work done. He states he did go over and get all of this done and ended up having some abnormal labs and imaging. He states he is scheduled for an echo on 19 September and that he is planning on going back to see his primary on Monday to review over some of the results from the ER visit. Patient does state that he still has his chronic back and neck pain and does still want to proceed forward with the pump trial. Patient is prescribed tramadol from an outside provider and pregabalin 25 mg at bedtime from our office. He denies any side effects. His Jorje has been reviewed and is appropriate. Review of Systems: General: No recent weight changes, no fever, no sleep disturbances Respiratory: No cough, no shortness of air, no recurring pulmonary infections Cardiovascular/peripheral vascular: No chest pain, no palpitations, no edema, no shortness of breath Gastrointestinal: No new onset incontinence, normal bowel movements reported Genitourinary: No new onset incontinence Musculoskeletal: Chronic neck and back pain Psychiatric: [Normal mood/affect] Neurological: [Denies weakness in extremities], [denies balance issues] Pain at rest (0-10 scale): 7 Objective Objective:: Physical Exam: General: Alert and oriented x3, no acute distress, pleasant and cooperative Lungs: Respirations even and unlabored, symmetrical chest expansion Eyes: PERRL Musculoskeletal: Flexion and extension of lumbar [spine] somewhat guarded secondary to pain, [antalgic gait noted] Neurological: Speech clear, no gross sensory deficit Has patient had previous pain injection?: No Conservative treatment options previously tried: Home exercise plan Length of treatment: Longer than 12 weeks Meds Home Medications and Allergies Home Medications ?Medication ?Instructions ?Recorded ?Confirmed ?Type B-complex with vitamin C (Super B 1 tab PO .q day Supplement 06/06/17 08/28/24 History Complex-Vitamin C tablet) aspirin 81 mg tablet,delayed 81 mg PO ONCE heart. 06/06/17 08/28/24 History release cholecalciferol (vitamin D3) 50 2,000 unit PO ONCE Supplement 06/06/17 08/28/24 History mcg (2,000 unit) capsule clopidogrel 75 mg tablet 75 mg PO ONCE heart. 06/06/17 08/28/24 History diclofenac sodium 1 % topical gel 2 g topical QID , 06/06/17 08/28/24 History (Voltaren) nitroglycerin 0.4 mg sublingual 0.4 mg sublingual Q5M PRN cp 06/06/17 08/28/24 History tablet omeprazole magnesium 20 mg 20 mg PO ONCE stomach 06/06/17 08/28/24 History capsule,delayed release tramadol 37.5 mg-acetaminophen 325 1 tab PO Q4-6H PRN pain 06/06/17 08/28/24 History mg tablet (Ultracet) albuterol sulfate 90 mcg/actuation 2 inh inhalation Q6H PRN Breathing 01/05/23 08/28/24 History breath activated powder inhaler Problems donepezil 5 mg tablet 5 mg PO DAILY 01/05/23 08/28/24 History fluticasone 250 mcg-salmeterol 50 1 inh inhalation BID PRN Breathing 01/05/23 08/28/24 History mcg/dose blistr powdr for Problems inhalation (Advair Diskus) furosemide 40 mg tablet 40 mg PO BID 01/05/23 08/28/24 History isosorbide mononitrate 30 mg 30 mg PO DAILY Chest Pain 01/05/23 08/28/24 History tablet,extended release 24 hr losartan 50 mg tablet 50 mg PO BID 01/05/23 08/28/24 History metformin 500 mg tablet 500 mg PO DAILY 01/05/23 08/28/24 History rosuvastatin 40 mg tablet 40 mg PO DAILY 01/05/23 08/28/24 History spironolactone 25 mg tablet 25 mg PO DAILY 01/05/23 08/28/24 History gabapentin 100 mg capsule See Rx Instructions PO .COMPLEX 04/27/23 08/28/24 History pregabalin 50 mg capsule 50 mg PO BID #28 caps 02/12/24 08/28/24 Rx pregabalin 25 mg capsule 25 mg PO HS #14 caps 05/22/24 08/28/24 Rx New Prescriptions to Start Prescriptions: Allergies Allergy/AdvReac Type Severity Reaction Status Date / Time Penicillins Allergy Intermediate I-RASH Verified 08/23/24 09:25 codeine Allergy Unknown AFFECTS Verified 08/23/24 09:25 HEART Assessment and Plan *Assessment and plan (1) Lumbar facet arthropathy: Status: Acute Category: Medical Code(s): M47.816 - Spondylosis without myelopathy or radiculopathy, lumbar region (2) Lumbar spondylosis: Status: Acute Category: Medical Code(s): M47.816 - Spondylosis without myelopathy or radiculopathy, lumbar region (3) Degenerative disc disease, cervical: Status: Acute Category: Medical Code(s): M50.30 - Other cervical disc degeneration, unspecified cervical region (4) Degenerative disc disease, lumbar: Status: Acute Category: Medical Code(s): M51.369 - Other intervertebral disc degeneration, lumbar region without mention of lumbar back pain or lower extremity pain (5) Chronic pain syndrome: Status: Acute Category: Medical Code(s): G89.4 - Chronic pain syndrome Plan I did review over with the patient that he did pass his psychological evaluation and was deemed an appropriate candidate for the pump trial. We did discuss at length regarding his ongoing heart related issues that we would wait until after all this was reviewed with cardiology and his primary care and he was given the all clear. Patient agrees with this plan of care. I did discuss with him that we will tentatively plan on putting him on arranging schedule for the pump trial unless there continues to be ongoing heart related concerns. Patient will return to clinic in 1 month for reevaluation of symptoms and plan of care. Patient has been instructed to contact the clinic with any concerns before the next appointment. Dr. Patel has reviewed this note and agrees with this plan of care. This note was dictated using voice recognition software and make contain errors or omissions. All injections are used with Lidocaine, Bupivacaine and dexamethasone. Occasionally urine drug screen is needed to verify patient's compliance with our office pain contract. This is ordered based off specific treatments related to chronic pain with the potential to abuse certain medications.
== END 2024-08-28 23:59 | disposition home or self-care (01) ==
LOC: SC.PAIN 08:51
PROVIDERS: PCP Family Medicine; Visit Provider Nurse Practitioner Family
DX: M47.816 Spondylosis without myelopathy or radiculopathy, lumbar region (principal); M50.30 Other cervical disc degeneration, unspecified cervical region; M51.369 Other intervertebral disc degeneration, lumbar region without mention of lumbar back pain or lower extremity pain; G89.4 Chronic pain syndrome; Z87.891 Personal history of nicotine dependence; Z79.899 Other long term (current) drug therapy
CPT/HCPCS: 99212; G0463

== ENCOUNTER 2024-09-30 09:22 | Outpatient (POV) | payer MEDICARE, OTHER, SELFPAY ==
[2024-09-30 10:10] VITALS: BP 122/63; PULSE 72; RESP 18; O2SAT 97; BMI 21.6
--- NOTE | 2024-09-30 10:20 | EXP.PAIN.SOA ---
[facility] Disclaimer: The information contained in this section may have been updated after the patient was seen, as this information can be updated by other users. Medical History Bilateral cataracts Prostate cancer Surgical History History of appendectomy Status post double vessel coronary artery bypass Family History Other Cancer Coronary artery disease Hypertension Stroke Social History Smoking Status: Former smoker alcohol intake: never substance use type: denies use current occupational status: other Travel in the last 8 weeks?: None household members: spouse housing: house marital status: number of children: 3 caffeine: No PM Subjective & Objective Subjective Subjective:: Patient is a pleasant 79-year-old male who presents today for follow-up. Today he rates his pain a 7 out of 10. He denies any new trauma or or injury from our last visit. He does state that he is still having the chronic pain in both his neck and low back however is stating that he has had quite a bit more hip pain. Patient is still in the process of having cardiac testing. [facility] [place] and states that it just seems like it always takes forever to get updates. Patient did ended up having the echo however has still not heard any updated results. Patient has had injections from our office in the past and has had improvement but frequently they only do provide temporary relief. Patient is prescribed tramadol from an outside provider and pregabalin 25 mg at bedtime from our office. His Jorje has been reviewed and is appropriate. Patient does use Voltaren versus compounded cream as he felt like this did provide more improvement. Review of Systems: General: No recent weight changes, no fever, no sleep disturbances Respiratory: No cough, no shortness of air, no recurring pulmonary infections Cardiovascular/peripheral vascular: No chest pain, no palpitations, no edema, no shortness of breath Gastrointestinal: No new onset incontinence, normal bowel movements reported Genitourinary: No new onset incontinence Musculoskeletal: Low back pain, left hip pain, neck pain Psychiatric: [Normal mood/affect] Neurological: [Denies weakness in extremities], [denies balance issues] Pain at rest (0-10 scale): 7 Objective Objective:: Physical Exam: General: Alert and oriented x3, no acute distress, pleasant and cooperative Lungs: Respirations even and unlabored, symmetrical chest expansion Eyes: PERRL Musculoskeletal: Flexion and extension of lumbar [spine] somewhat guarded secondary to pain, [antalgic gait noted] Neurological: Speech clear, no gross sensory deficit Has patient had previous pain injection?: No Conservative treatment options previously tried: Home exercise plan Length of treatment: Longer than 12 weeks Meds Home Medications and Allergies Home Medications ?Medication ?Instructions ?Recorded ?Confirmed ?Type B-complex with vitamin C (Super B 1 tab PO .q day Supplement 06/06/17 09/30/24 History Complex-Vitamin C tablet) aspirin 81 mg tablet,delayed 81 mg PO ONCE heart. 06/06/17 09/30/24 History release cholecalciferol (vitamin D3) 50 2,000 unit PO ONCE Supplement 06/06/17 09/30/24 History mcg (2,000 unit) capsule clopidogrel 75 mg tablet 75 mg PO ONCE heart. 06/06/17 09/30/24 History diclofenac sodium 1 % topical gel 2 g topical QID , 06/06/17 09/30/24 History (Voltaren) nitroglycerin 0.4 mg sublingual 0.4 mg sublingual Q5M PRN cp 06/06/17 09/30/24 History tablet omeprazole magnesium 20 mg 20 mg PO ONCE stomach 06/06/17 09/30/24 History capsule,delayed release tramadol 37.5 mg-acetaminophen 325 1 tab PO Q4-6H PRN pain 06/06/17 09/30/24 History mg tablet (Ultracet) albuterol sulfate 90 mcg/actuation 2 inh inhalation Q6H PRN Breathing 01/05/23 09/30/24 History breath activated powder inhaler Problems donepezil 5 mg tablet 5 mg PO DAILY 01/05/23 09/30/24 History fluticasone 250 mcg-salmeterol 50 1 inh inhalation BID PRN Breathing 01/05/23 09/30/24 History mcg/dose blistr powdr for Problems inhalation (Advair Diskus) furosemide 40 mg tablet 40 mg PO BID 01/05/23 09/30/24 History isosorbide mononitrate 30 mg 30 mg PO DAILY Chest Pain 01/05/23 09/30/24 History tablet,extended release 24 hr losartan 50 mg tablet 50 mg PO BID 01/05/23 09/30/24 History metformin 500 mg tablet 500 mg PO DAILY 01/05/23 09/30/24 History rosuvastatin 40 mg tablet 40 mg PO DAILY 01/05/23 09/30/24 History spironolactone 25 mg tablet 25 mg PO DAILY 01/05/23 09/30/24 History gabapentin 100 mg capsule See Rx Instructions PO .COMPLEX 04/27/23 09/30/24 History pregabalin 50 mg capsule 50 mg PO BID #28 caps 02/12/24 09/30/24 Rx pregabalin 25 mg capsule 25 mg PO HS #14 caps 05/22/24 09/30/24 Rx New Prescriptions to Start Prescriptions: Allergies Allergy/AdvReac Type Severity Reaction Status Date / Time Penicillins Allergy Intermediate I-RASH Verified 08/23/24 09:25 codeine Allergy Unknown AFFECTS Verified 08/23/24 09:25 HEART Assessment and Plan *Assessment and plan (1) Greater trochanteric bursitis of both hips: Status: Acute Category: Medical Code(s): M70.61 - Trochanteric bursitis, right hip; M70.62 - Trochanteric bursitis, left hip (2) Degenerative disc disease, cervical: Status: Acute Category: Medical Code(s): M50.30 - Other cervical disc degeneration, unspecified cervical region (3) Chronic pain syndrome: Status: Acute Category: Medical Code(s): G89.4 - Chronic pain syndrome (4) Degenerative disc disease, lumbar: Status: Acute Category: Medical Code(s): M51.369 - Other intervertebral disc degeneration, lumbar region without mention of lumbar back pain or lower extremity pain Plan I did discuss with the patient that we will still plan on following up with him in about 6 weeks. He was counseled if anything changes to call as if he needs us sooner or if he still does not have any updates related to his heart that he can push this follow-up further out. Patient was reviewed that we can always try additional injections however since I do only provide more temporary relief it is at his discretion. Patient agrees with this plan of care. Patient has been instructed to contact the clinic with any concerns before the next appointment. Dr. Bux has reviewed this note and agrees with this plan of care. This note was dictated using voice recognition software and make contain errors or omissions. All injections are used with Lidocaine, Bupivacaine and dexamethasone. Occasionally urine drug screen is needed to verify patient's compliance with our office pain contract. This is ordered based off specific treatments related to chronic pain with the potential to abuse certain medications.
== END 2024-09-30 23:59 | disposition home or self-care (01) ==
LOC: SC.PAIN 09:26
PROVIDERS: PCP Family Medicine; Visit Provider Nurse Practitioner Family
DX: M70.61 Trochanteric bursitis, right hip (principal); M70.62 Trochanteric bursitis, left hip; M50.30 Other cervical disc degeneration, unspecified cervical region; G89.4 Chronic pain syndrome; M51.369 Other intervertebral disc degeneration, lumbar region without mention of lumbar back pain or lower extremity pain
CPT/HCPCS: 99212; G0463

== ENCOUNTER 2024-11-11 08:26 | Outpatient (POV) | payer MEDICARE, OTHER, SELFPAY ==
--- OUTSIDE RECORDS SUMMARY | 2024-04-01 05:45 | XMS_ITS ---
[facility] [address] [place] [id number] Care Team Providers Care Cable Splicer Assistant Name Role Phone Mitch Gillette Primary Care Provider [phone] Allergies Allergen (clinical drug ingredient) Drug/Non Drug Allergy documented on EMR Reaction Allergy Type Onset Date Status codeine Codeine Unknown Drug Allergy Active Penicillin Unknown Drug Allergy Active Results Component Value Reference Range Notes Glycohemoglobin A1c (in hous e) Reviewed date:04/01/2024 11:54:58 AM Interpretation: Performing Lab: Notes/Report: glycohemoglobin 6.3% 5 - 6.5 % P-Comprehensive Metabolic Pa deuce (CMP) Reviewed date:04/08/2024 01:16:18 PM Interpretation:co2- 21, gluc 104, bun 25 Performing Lab: Notes/Report: Test performed by [facility] [address] [place] [address] , [address], [place] [address] Steve Zeng MD, Rod Mill Operator CLIA: [id number] Sodium 139 135-145 mmol/L Potassium 4.5 3.5-5.3 mmol/L Chloride 106 97-108 mmol/L CO2 21 22-32 mmol/L Glucose 104 65-99 mg/dL BUN 25 8-23 mg/dL Creatinine 0.97 0.70-1.30 mg/dL Calcium 9.6 8.6-10.4 mg/dL eGFR by Creatinine 80 >59 mL/min/1.73m2 Protein 7.2 6.0-8.3 g/dL Albumin 4.1 3.5-5.3 g/dL Alkaline Phosphatase 120 40-129 IU/L ALT (SGPT) 21 <5-55 IU/L AST (SGOT) 18 <5-46 IU/L Bilirubin, Total 0.2 <0.2-1.2 mg/dL A/G Ratio 1.3 1.1-2.5 REASON FOR VISIT 4 month f/u, Needs labs, diabetic eye exam, & flu vaccine Medications Medication SIG (Take, Route, Frequency, Duration) Notes Start Date End Date Status Tylenol 500 MG 2-6 TABS ONCE DAILY Active Omeprazole 20 MG 1 cap(s) orally once a day Active Voltaren 1 % 2 g applied topicall y 4 times a day Active Fluticasone Propionate 50 MCG/ACT 1 spray(s) each nostril once a day; Duration: 30 day(s) 09/21/2018 Active Breo Ellipta 200-25 MCG/ACT 1 puff(s) in haled once a day Active Vitamin D3 50 MCG (2000 UT) 1 tab(s) ora lly once a day Active Aspirin Adult Low Dose 81 MG 1 tab(s) orally daily Active Vitamin B Complex - 1 tab(s) orally once a day Active Imodium A-D 2 MG 1 tab(s) orally twic e a day Active metFORMIN HCl 500 mg one Orally once renny ly; Duration: 90 days Active Losartan Potassium 50 mg TAKE ONE TABLET BY MOUTH TWICE DAILY; Duration: 30 Active Donepezil HCl 5 mg TAKE ONE TABLET BY M OUTH EVERY DAY AT BEDTIME; Duration: 30 Active Furosemide 40 mg TAKE ONE TABLET BY M OUTH TWICE DAILY; Duration: 30 Active Isosorbide Mononitrate ER 30 mg TAKE ONE TABLET BY MOUTH EVERY DAY IN THE MORNING; Duration: 30 Active Hyoscyamine Sulfate 0.125 MG 1 tablet on the tongue and allow to dissolve as needed Orally three times a day as needed 12/01/2023 Active Ventolin HFA 108 (90 Base) MCG/ACT 2 inhalations inhaled four times a day as needed Active Plavix 75 MG 1 tab(s) orally once a day; Duration: 90 days Active Rosuvastatin Calcium 40 MG 1 tab(s) oral ly once a day; Duration: 90 days Active traMADol-Acetaminophen 37.5-325 MG 1 tab(s) orally three times a day as needed 03/25/2024 Active Spironolactone 25 MG 1 tab(s) orally onc e a day; Duration: 90 days Active Gabapentin 100 MG 1 am, 3 hs orally 2 times a day 08/03/2021 Active Potassium Chloride ER 10 MEQ 1 tab(s) or ally 2 times a day; Duration: 30 Active Vital Signs Blood pressure systolic 152 mm Hg 04/01/20 24 Blood pressure diastolic 80 mm Hg 024 Heart Rate 67 /min 04/01/2024 Height 66 in 04/01/2024 Weight 220.6 lbs 04/01/2024 BMI 35.60 kg/m2 04/01/2024 Encounters Encounter Location Date Provider Diagnosis [facility] [address] [place], [place] [id number] 04/01/2024 Mitch Gillette Type 2 diabetes mellitus without complications E11.9 ; Anxiety associated with depression F41.8 ; Essential hypertension I10 ; Degenerative disc disease, lumbar M51.36 ; Other chronic pain G89.29 ; Simple chronic bronchitis J41.0 and Frequent diarrhea R19.7 Assessments Encounter Date Diagnosis (ICD Code) Assessment Notes Treatment Notes Treatment Clinical Notes Section Notes 04/01/2024 Type 2 diabetes mellitus without complications (ICD-10 - E11.9) 04/01/2024 Anxiety associated with depression (ICD-10 - F41.8) 04/01/2024 Essential hypertension (ICD-10 - I10) 04/01/2024 Degenerative disc disease, lumbar (ICD-10 - M51.36) 04/01/2024 Other chronic pain (ICD-10 - G89.29) 04/01/2024 Simple chronic bronchitis (ICD-10 - J41.0) 04/01/2024 Frequent diarrhea (ICD-10 - R19.7) Align one a day, Miralax 17 gm daily Plan Of Treatment Medication Medication Name Sig Start Date Stop Date Notes metFORMIN HCl 500 mg one Orally once renny ly; Duration: 90 days Hyoscyamine Sulfate 0.125 MG 1 tablet on the tongue and allow to dissolve as needed Orally three times a day as needed 12/01/2023 Treatment Notes Assessment Notes Frequent diarrhea Align one a day, Jas alax 17 gm daily Next Appt Details Provider Name:Mitch Bean er, 03/14/2025 09:30:00 AM, [address], [address], [place], [id number], Progress Notes * PRABHJOT COONEYDOB:1945 (79 yo M)Acc No.[id number]:04/01/2024 Progress Notes Patient: PRABHJOT APARICIO Provider: Mitch Gillette M.D. :1945 A ge:78 Y S ex:Male Date:04/01/2024 Address:[address] [id number] Subjective: * Chief Complaints: * 1 . 4 month f/u. 2. Needs labs, diabetic eye exam, & flu vaccine. * HPI: C ardiology: The patient is here for a check up on Hypertension and Diabetes. Pt states he is still having trouble with diarrhea. Neg colonoscopy 2019, except some diverticulosis. Not taking fiber. Not taking Align. Out of Hyoscyamine for a while. Pt states he has had some chest pain and the antacids are not helping. Pt states he has been going to the pain clinic for his back and the steroid shots are not helping for very long. 78 year old male presents with c/o Chest Pain. c/o Short of Breath. Denies : Dizziness. D enies : Palpitations. C onstitutional: Killed a 9 point [place] and processed it. * ROS: D ERMATOLOGY: no R eric. n o H taylor. G ASTROENTEROLOGY: no N ausea. n o V omiting. n o D iarrhea.? U ROLOGY: no D ifficulty urinating. n o B lood in urine. * Medical History: C oronary Artery Disease, Hyperlipidemia, Fibromyalgia, BPH elevated PSA- subsequent prostate Ca, Tob addiction- quit 2001, Ulcerative colitis, 03/11 Pneumovac, Type 2 diabetes, 10/2012, 10/03/13 Cardiolyte GXT 65% EF, neg study, 02/16/2021 COVID 19 infection, Regen-Cov infusion. * Surgical History: f ifth digit left hand repair 1984, prostate exploratory and biopsy 06/07/2004, appendectomy 1956, circumcision 1946, cardiac catheterization 05/14/07, CABG, [place] of LAD, SVG of RCA 05/14/07, heart cath 04-21-08; 06/2015, prostatectomy- [place] 03/26/12, teeth removed 03/14, Heart Cath-[facility] 01/14, Neg colonoscopy, Dr. Vale 2007, bilateral iridectomies October-Nov 2021. * Hospitalization/Major Diagno stic Procedure: s ee above , ER triquetral fracture 11/02/09, [facility] ER chestpain 05/2010, [place]- Prostatectomy 03/26/12, [facility]- SOA 08/06-08/10/15. * Family History: F ather: , anuerysm, obese. M other: alive. C hildren: asthma, joint problems.?1 brother(s) , 1 sister(s) - healthy. 2 son(s) , 1 daughter(s) . . * Social History: C URRENT TOBACCO USE S moking Status: Patient does NOT smoke. C affeine: yes, frequency:. Exercise: yes. Home smoke detector use: yes. Marital Status: . 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 Past smoking status: no, quit 2002 after smoking for 40 years. Recreational drug use: no. Alcohol: no. * Medications: T aking Aspirin Adult Low Dose 81 MG Tablet Delayed Release 1 tab(s) orally daily , Taking Vitamin D3 50 MCG (2000 UT) Tablet 1 tab(s) orally once a day , Taking Imodium A-D 2 MG Tablet 1 tab(s) orally twice a day , Taking Vitamin B Complex - Tablet 1 tab(s) orally once a day , Taking Tylenol 500 MG 2-6 TABS ONCE DAILY , Taking Breo Ellipta 200-25 MCG/ACT Aerosol Powder Breath Activated 1 puff(s) inhaled once a day , Taking Fluticasone Propionate 50 MCG/ACT Suspension 1 spray(s) each nostril once a day , Taking Voltaren 1 % Gel 2 g applied topically 4 times a day , Taking Omeprazole 20 MG Capsule Delayed Release 1 cap(s) orally once a day , Taking Potassium Chloride ER 10 MEQ Tablet Extended Release 1 tab(s) orally 2 times a day , Taking Gabapentin 100 MG Capsule 1 am, 3 hs orally 2 times a day , Taking Ventolin HFA 108 (90 Base) MCG/ACT Aerosol Solution 2 inhalations inhaled four times a day as needed , Taking Hyoscyamine Sulfate 0.125 MG Tablet Disintegrating 1 tablet on the tongue and allow to dissolve as needed Orally three times a day as needed , Taking Rosuvastatin Calcium 40 MG Tablet 1 tab(s) orally once a day , Taking Plavix 75 MG Tablet 1 tab(s) orally once a day , Taking metFORMIN HCl 500 mg Tablet TAKE ONE TABLET BY MOUTH EVERY DAY , Taking Spironolactone 25 MG Tablet 1 tab(s) orally once a day , Taking traMADol-Acetaminophen 37.5-325 MG Tablet 1 tab(s) orally three times a day as needed , Taking Donepezil HCl 5 mg Tablet TAKE ONE TABLET BY MOUTH EVERY DAY AT BEDTIME , Taking Losartan Potassium 50 mg Tablet TAKE ONE TABLET BY MOUTH TWICE DAILY , Taking Isosorbide Mononitrate ER 30 mg Tablet Extended Release 24 Hour TAKE ONE TABLET BY MOUTH EVERY DAY IN THE MORNING , Taking Furosemide 40 mg Tablet TAKE ONE TABLET BY MOUTH TWICE DAILY , Medication List reviewed and reconciled with the patient * Allergies: P enicillin, Codeine. Objective: * Vitals: W t:220.6, Temp:97.8, BP:152/80, HR:67, O2 Sat:99% on RA, Nurse:ELIZABETH, Ht: 66, BMI:35.60. * Examination: G eneral Examination: General Appearance: N AD. Face is full. H EENT:?unremarkable. O ral cavity: n o lesions, mucosa moist and WNL, no erythema. N julio: ?supple, no lymphadenopathy, no carotid bruits. C hest: n ormal shape and expansion. Heart: R SR. L ungs: decreased breath sounds, few fibrotic rales. A bdomen:?obese, soft , hyperactive BS. N eurologic Exam: I ntact, gait normal. S kin: i ntact. P eripheral pulses: n ormal . E xtremities: 1 + leg edema. ? Assessment: * Assessment: 1. T ype 2 diabetes mellitus without complications - E11.9 2 . A nxiety associated with depression - F41.8 3 . E ssential hypertension - I10 ?4. D egenerative disc disease, lumbar - M51.36 5 . O ther chronic pain - G89.29 6 . S imple chronic bronchitis - J41.0 7 . F requent diarrhea - R19.7 Plan: * Treatment: Value Reference Range A /G Ratio 1.3 1.1-2.5 - * A lbumin 4.1 3.5-5.3 - g/dL * A lkaline Phosphatase 120 40-129 - IU/L * A LT (SGPT) 21 <5-55 - IU/L * A ST (SGOT) 18 <5-46 - IU/L * B ilirubin, Total 0.2 <0.2-1.2 - mg/dL * B UN 25 H 8-23 - mg/dL * C alcium 9.6 8.6-10.4 - mg/dL * C hloride 106 97-108 - mmol/L * C O2 21 L 22-32 - mmol/L * C reatinine 0.97 0.70-1.30 - mg/dL * G lucose 104 H 65-99 - mg/dL * P otassium 4.5 3.5-5.3 - mmol/L * S odium 139 135-145 - mmol/L * P rotein 7.2 6.0-8.3 - g/dL * e GFR by Creatinine 80 >59 - mL/min/1.73m2 * Karen Zepeda 04/08/2024 1:16: 13 PM > , See phone encounter ?LAB: Glycohemoglobin A1c (in house) (Collection Date & Time - 04/01/2024)* Value Reference Range g lycohemoglobin 6.3% 5 - 6.5 % * Sierra Joseph 04/01/2024 9:4 1:04 AM > , Provider reviewed results while patient in office. 2.?Frequent diarrhea? Refill Hyoscyamine Sulfate Tablet Disintegrating, 0.125 MG, 1 tablet on the tongue and allow to dissolve as needed, Orally, three times a day as needed, 90, Refills 2.?? Notes: Align one a day, Miralax 17 gm daily?? * Procedure Codes: 9 4760 [place]SE [place]X, 3044F HG A1C LEVEL LT 7.0%, 09347 CAPILLARY BLOOD DRAW, 18466 GLYCATED HEMOGLOBIN TEST, Modifiers: QW * Images: Billing Information: * Visit Code: * Procedure Codes: 88350 PULSE OX. 3044F HG A1C LEVEL LT 7.0%. 31808 CAPILLARY BLOOD DRAW. 20831 GLYCATED HEMOGLOBIN TEST. Modifiers: QW * Electronic signature of Mitch Gillette MD on 11/11/2024 at 08:31 AM EDT Sign off status: Pending * Provider: Mitch Gillette M.D. Date: 1 06/02/2023 Generated for Printi ng/Faxing/eTransmitting on: 0 11/11/2024 08:31 AM EDT History and Physical Notes * HPI (History of Present Illness) Category Sub-Category Detail Notes Category Not es Cardiology Short of Breath Chest Pain Palpitations Dizziness Examination Category Sub-Category Detail Notes Category Not es General Examination HEENT: unremarkable Heart: RSR Lungs: decreased breath matthias nds, few fibrotic rales Abdomen: obese, soft , hypera ctive BS Extremities: 1+ leg edema General Appearance: NAD. Face is full Skin: intact Neurologic Exam: Intact, gait normal Neck: supple, no lymphaden opathy, no carotid bruits Oral cavity: no lesions, mucosa m oist and WNL, no erythema Peripheral pulses: normal Chest: normal shape and exp ansion
--- OUTSIDE RECORDS SUMMARY | 2024-07-01 06:15 | XMS_ITS ---
Author Organization [facility] Address [address] [place] [id number] Care Team Providers Care Ehs Teacher Name Role Phone Mitch Gillette Primary Care Provider [phone] Allergies Allergen (clinical drug ingredient) Drug/Non Drug Allergy documented on EMR Reaction Allergy Type Onset Date Status codeine Codeine Unknown Drug Allergy Active Penicillin Unknown Drug Allergy Active Results Component Value Reference Range Notes Glycohemoglobin A1c (in hous e) Reviewed date:07/01/2024 10:57:08 AM Interpretation: Performing Lab: Notes/Report: glycohemoglobin 7.3% 5 - 6.5 % P-Comprehensive Metabolic Pa deuce (CMP) Reviewed date:07/04/2024 02:19:23 PM Interpretation:gluc 135, a1c discussed in OV Performing Lab: Notes/Report: Test performed by [facility] , [address], [place] [address] Steve Zeng MD, Industrial Custodian CLIA: [id number] Sodium 136 135-145 mmol/L Potassium 4.1 3.5-5.3 mmol/L Chloride 100 97-108 mmol/L CO2 25 22-32 mmol/L Glucose 135 65-99 mg/dL BUN 18 8-23 mg/dL Creatinine 0.95 0.70-1.30 mg/dL Calcium 9.4 8.6-10.4 mg/dL eGFR by Creatinine 82 >59 mL/min/1.73m2 Protein 7.1 6.0-8.3 g/dL Albumin 4.5 3.5-5.3 g/dL Alkaline Phosphatase 56 40-129 IU/L ALT (SGPT) 27 <5-55 IU/L AST (SGOT) 20 <5-46 IU/L Bilirubin, Total 0.4 <0.2-1.2 mg/dL A/G Ratio 1.7 1.1-2.5 REASON FOR VISIT 3 month ckup, Needs labs & diabetic eye exam Medications Medication SIG (Take, Route, Frequency, Duration) Notes Start Date End Date Status Isosorbide Mononitrate ER 30 mg TAKE ONE TABLET BY MOUTH EVERY DAY IN THE MORNING; Duration: 30 Active Losartan Potassium 50 mg TAKE ONE TABLET BY MOUTH TWICE DAILY; Duration: 30 Active metFORMIN HCl 500 mg one Orally once renny ly; Duration: 90 days Active Donepezil HCl 5 mg TAKE ONE TABLET BY M OUTH EVERY DAY AT BEDTIME; Duration: 30 Active Furosemide 40 mg TAKE ONE TABLET BY M OUTH TWICE DAILY; Duration: 30 Active Ventolin HFA 108 (90 Base) MCG/ACT 2 inhalations inhaled four times a day as needed Active Rosuvastatin Calcium 40 MG 1 tab(s) oral ly once a day; Duration: 90 days Active Plavix 75 MG 1 tab(s) orally once a day; Duration: 90 days Active Spironolactone 25 MG 1 tab(s) orally onc e a day; Duration: 90 days Active Hyoscyamine Sulfate 0.125 MG 1 tablet on the tongue and allow to dissolve as needed Orally three times a day as needed 12/01/2023 Active Potassium Chloride ER 10 MEQ 1 tab(s) or ally 2 times a day; Duration: 30 Active Gabapentin 100 MG 1 am, 3 hs orally 2 times a day 08/03/2021 Active Voltaren 1 % 2 g applied topicall y 4 times a day Active traMADol-Acetaminophen 37.5-325 MG 1 tab(s) orally three times a day as needed 07/01/2024 Active Omeprazole 20 MG 1 cap(s) orally once a day Active Imodium A-D 2 MG 1 tab(s) orally twic e a day Active Tylenol 500 MG 2-6 TABS ONCE DAILY Active Breo Ellipta 200-25 MCG/ACT 1 puff(s) in haled once a day Active Fluticasone Propionate 50 MCG/ACT 1 spray(s) each nostril once a day; Duration: 30 day(s) 09/21/2018 Active Aspirin Adult Low Dose 81 MG 1 tab(s) orally daily Active Vital Signs Blood pressure systolic 136 mm Hg 07/02/19 25 Blood pressure diastolic 80 mm Hg 025 Heart Rate 62 /min 07/01/2024 Height 66 in 07/01/2024 Weight 222.4 lbs 07/01/2024 BMI 35.89 kg/m2 07/01/2024 Encounters Encounter Location Date Provider Diagnosis [facility] [address] [facility] [address] [place] [id number] 07/01/2024 Mitch Gillette Type 2 diabetes andreina itus without complications E11.9 ; Atherosclerosis of [place] coronary artery of [place] heart with stable angina pectoris I25.119 ; Myalgia M79.1 ; Essential hypertension I10 and Other chronic pain G89.29 Assessments Encounter Date Diagnosis (ICD Code) Assessment Notes Treatment Notes Treatment Clinical Notes Section Notes 07/01/2024 Type 2 diabetes mellitus without complications (ICD-10 - E11.9) 07/01/2024 Atherosclerosis of [place] coronary artery of [place] heart with stable angina pectoris (ICD-10 - I25.119) 07/01/2024 Myalgia (ICD-10 - M79.1) 07/01/2024 Essential hypertension (ICD-10 - I10) 07/01/2024 Other chronic pain (ICD-10 - G89.29) Plan Of Treatment Medication Medication Name Sig Start Date Stop Date Notes traMADol-Acetaminophen 37.5- 325 MG 1 tab(s) orally three times a day as needed 07/01/2024 Next Appt Details Follow Up: 4 Months, Reason: Provider Name:Mitch Bean , 03/14/2025 09:30:00 AM, [address] [facility], [address], [place], [phone], Progress Notes * PRABHJOT COONEYDOB:1945 (79 yo M)Acc No.[id number]:07/01/2024 Progress Notes Patient: PRABHJOT APARICIO Provider: Mitch Gillette M.D. :1945 A ge:79 Y S ex:Male Date:07/01/2024 Address:[address] [place], [id number] Subjective: * Chief Complaints: * 1 . 3 month ckup. 2. Needs labs & diabetic eye exam. * HPI: C ardiology: The patient is here for a 3 month check up on Hypertension and Diabetes. pt states he is doing good and denies any new concerns today. Pt is fasting. 79 year old male presents with c/o Short of Breath. c/o Dizziness. Denies : Chest Pain. D enies : Palpitations. H ip/Thigh: Recent steroid shots of back and soon for hips. D ermatology: c/o skin lesion c w juan pablo keratoses. * ROS: D ERMATOLOGY: no R eric. [...] infection, Regen-Cov infusion. * Surgical History: f [facility] digit left hand repair 1984, prostate exploratory and biopsy 06/07/2004, appendectomy 1956, circumcision 1946, cardiac catheterization 05/14/07, CABG, [place] of LAD, SVG of RCA 05/14/07, heart cath 04-21-08; 06/2015, prostatectomy- [facility] 03/26/12, teeth removed 03/14, Heart Cath[facility] 01/14, Neg colonoscopy, Dr. Vale 2007, bilateral iridectomies October-Nov 2021. * Hospitalization/Major Diagno stic Procedure: s ee above , ER triquetral fracture 11/02/09, [facility] ER chestpain 05/2010, [facility]- Prostatectomy 03/26/12, [facility]- [facility] 08/06-08/10/15. * Family History: F [...] use: no. Alcohol: no. * Medications: T lizag Aspirin Adult Low Dose 81 MG Tablet Delayed Release 1 tab(s) orally daily , Taking Imodium A-D 2 MG Tablet 1 tab(s) orally twice a day , Taking Tylenol 500 MG [...] tab(s) orally once a day , Taking Spironolactone 25 MG Tablet 1 tab(s) orally once a day , Taking traMADol-Acetaminophen 37.5-325 MG Tablet 1 tab(s) orally three times a day as needed , Taking Hyoscyamine Sulfate 0.125 MG Tablet Disintegrating 1 tablet on the tongue and allow to dissolve as needed Orally three times a day as needed , Taking metFORMIN HCl 500 mg Tablet one Orally once daily , Taking Donepezil HCl 5 mg Tablet TAKE ONE TABLET BY MOUTH EVERY DAY AT BEDTIME , Taking Furosemide 40 mg Tablet TAKE ONE TABLET BY MOUTH TWICE DAILY , Taking Isosorbide Mononitrate ER 30 mg Tablet Extended Release 24 Hour TAKE ONE TABLET BY MOUTH EVERY DAY IN THE MORNING , Taking Losartan Potassium 50 mg Tablet TAKE ONE TABLET BY MOUTH TWICE DAILY , Discontinued Vitamin D3 50 MCG (1999) Tablet 1 tab(s) orally once a day , Discontinued Vitamin B Complex - Tablet 1 tab(s) orally once a day , Medication List reviewed and reconciled with the patient * Allergies: P enicillin, Codeine. Objective: * Vitals: W t:222.4, Temp:97.7, BP:136/80, HR:62, O2 Sat:98% on RA, Nurse:ELIZABETH, Ht: 66, BMI:35.89. * Examination: G eneral Examination: General Appearance: [...] eripheral pulses: n ormal . E xtremities: t race leg edema. ? Assessment: * Assessment: 1. T ype 2 diabetes mellitus without complications - E11.9 (Primary) 2 . A therosclerosis of [place] coronary artery of [place] heart with stable angina pectoris - I25.119 ? 3 . M yalgia - M79.1 4 . E ssential hypertension - I10 5 . O ther chronic pain - G89.29 Plan: * Treatment: Value Reference Range A /G Ratio 1.7 1.1-2.5 - * A lbumin 4.5 3.5-5.3 - g/dL * A lkaline Phosphatase 56 40-129 - IU/L * A LT (SGPT) 27 <5-55 - IU/L * A ST (SGOT) 20 <5-46 - IU/L * B ilirubin, Total 0.4 <0.2-1.2 - mg/dL * B UN 18 8-23 - mg/dL * C alcium 9.4 8.6-10.4 - mg/dL * C hloride 100 97-108 - mmol/L * C O2 25 22-32 - mmol/L * C reatinine 0.95 0.70-1.30 - mg/dL * G lucose 135 H 65-99 - mg/dL * P otassium 4.1 3.5-5.3 - mmol/L * S odium 136 135-145 - mmol/L * P rotein 7.1 6.0-8.3 - g/dL * e GFR by Creatinine 82 >59 - mL/min/1.73m2 * Sierra Joseph Anselmo 07/04/2024 2:19 :00 PM > 1+ Patient informed of normal results. ?LAB: Glycohemoglobin A1c (in house) (Collection Date & Time - 07/01/2024)* Value Reference Range g lycohemoglobin 7.3% 5 - 6.5 % * Sierra Joseph Anselmo 07/01/2024 10:2 7:41 AM > , Provider reviewed results while patient in office. 2.?Other chronic pain? Refill traMADol-Acetaminophen Tablet, 37.5-325 MG, 1 tab(s), orally, three times a day as needed, 90, Refills 2.?? * Procedure Codes: G 2211 Complex e/[place], [address] CAPILLARY BLOOD DRAW, 88791 GLYCATED HEMOGLOBIN TEST, Modifiers: QW , 3051F HG A1C>EQUAL 7.0%<8.0%, G8752 MOST RECENT SYSTOLIC BP < 140MM HG, G8754 MOST RECENT DIASTOLIC BP < 90MM HG * Follow Up: 4 Months * Images: Billing Information: * Visit Code: 12966 Office Visit, Est Pt., Level 4. * Procedure Codes: G2211 Complex e/[place]. [address] CAPILLARY BLOOD DRAW. 84705 GLYCATED HEMOGLOBIN TEST. Modifiers: QW 3051F HG A1C>EQUAL 7.0%<8.0%. G8752 MOST RECENT SYSTOLIC BP < 140MM HG. G8754 MOST RECENT DIASTOLIC BP < 90MM HG. * Electronic signature of Mitch Gillette MD on 11/11/2024 at 08:31 AM EDT Sign off status: Pending * Provider: Mitch Gillette M.D. Date: 0 07/01/2024 Generated for Myriam benton/Leatha/eTjorgesmitting on: 0 11/11/2024 08:31 AM EDT History and Physical Notes * HPI (History of Present Illness) Category Sub-Category Detail Notes Category Not es Dermatology skin lesion cw juan pablo keratoses Cardiology Short of Breath Chest Pain Palpitations Dizziness Examination Category Sub-Category Detail Notes Category Not es General Examination HEENT: unremarkable Heart: RSR Lungs: decreased breath matthias nds, few fibrotic rales Abdomen: obese, soft , hypera ctive BS Extremities: trace leg edema General Appearance: NAD. Face is full Skin: intact Neurologic Exam: Intact, gait normal Neck: supple, no lymphaden opathy, no carotid bruits Oral cavity: no lesions, mucosa m oist and WNL, no erythema Peripheral pulses: normal Chest: normal shape and exp ansion
--- OUTSIDE RECORDS SUMMARY | 2024-11-04 06:00 | XMS_ITS ---
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 Name Role Phone Mitch Gillette Primary Care Provider [phone] Allergies Allergen (clinical drug ingredient) Drug/Non Drug Allergy documented on EMR Reaction Allergy Type Onset Date Status codeine Codeine Unknown Drug Allergy Active Penicillin Unknown Drug Allergy Active Results Component Value Reference Range Notes Glycohemoglobin A1c (in hous e) Reviewed date:11/05/2024 01:22:04 PM Interpretation:6.4% Normal Performing Lab: Notes/Report: 6.4% Normal glycohemoglobin 6.4% 5 - 6.5 % P-Basic Metabolic Panel (BMP ) Reviewed date:11/05/2024 01:22:03 PM Interpretation:Normal Performing Lab: Notes/Report: Test performed by [facility] [address] [place] [address] , [address], [place] [address] Steve Zeng MD, Director Of Materials CLIA: [id number] Sodium 138 135-145 mmol/L Potassium 4.4 3.5-5.3 mmol/L Chloride 103 97-108 mmol/L CO2 23 20-32 mmol/L Glucose 106 65-99 mg/dL BUN 19 8-23 mg/dL Creatinine 0.87 0.70-1.30 mg/dL Calcium 9.2 8.6-10.4 mg/dL eGFR by Creatinine 88 >59 mL/min/1.73m2 REASON FOR VISIT 4 month check, Needs labs & diabetic eye exam Medications Medication SIG (Take, Route, Frequency, Duration) Notes Start Date End Date Status traMADol-Acetaminophen 37.5-325 MG 1 tab(s) orally three times a day as needed 11/04/2024 Active Donepezil HCl 5 mg TAKE ONE TABLET BY M OUTH EVERY DAY AT BEDTIME; Duration: 30 Active Furosemide 40 mg TAKE ONE TABLET BY M OUTH TWICE DAILY; Duration: 30 Active Losartan Potassium 50 mg TAKE ONE TABLET BY MOUTH TWICE DAILY; Duration: 30 Active Isosorbide Mononitrate ER 30 mg TAKE ONE TABLET BY MOUTH EVERY DAY IN THE MORNING; Duration: 30 Active Hyoscyamine Sulfate 0.125 mg DISSOLVE ON E TABLET in MOUTH THREE TIMES DAILY NEEDED; Duration: 30 Active Spironolactone 25 MG 1 tab(s) orally onc e a day; Duration: 90 days Active Clopidogrel Bisulfate 75 mg TAKE ONE TAB LET BY MOUTH EVERY DAY; Duration: 90 Active Rosuvastatin Calcium 40 MG 1 tab(s) oral ly once a day; Duration: 90 days Active metFORMIN HCl 500 mg TAKE ONE TABLET BY MOUTH EVERY DAY; Duration: 90 Active Omeprazole 20 MG 1 cap(s) orally once a day Active Voltaren 1 % 2 g applied topicall y 4 times a day Active Ventolin HFA 108 (90 Base) MCG/ACT 2 inhalations inhaled four times a day as needed Active Gabapentin 100 MG 1 am, 3 hs orally 2 times a day 08/03/2021 Active Potassium Chloride ER 10 MEQ 1 tab(s) or ally 2 times a day; Duration: 30 Active Breo Ellipta 200-25 MCG/ACT 1 puff(s) in haled once a day Active Tylenol 500 MG 2-6 TABS ONCE DAILY Active Imodium A-D 2 MG 1 tab(s) orally twic e a day Active Aspirin Adult Low Dose 81 MG 1 tab(s) orally daily Active Fluticasone Propionate 50 MCG/ACT 1 spray(s) each nostril once a day; Duration: 30 day(s) 09/21/2018 Active Problems Problem Type SNOMED Code ICD Code Onset Dates Problem Status W/U Status Risk Notes Problem 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 (084250003) Type 2 diabetes mellitus with other circulatory complications (E11.59) Active confirmed Problem Type 2 diabetes mellitus with other specified complication, unspecified whether long chain dyeing machine operator insulin use (E11.69) Active confirmed Vital Signs Blood pressure systolic 130 mm Hg 11/05/19 25 Blood pressure diastolic 60 mm Hg 025 Heart Rate 85 /min 11/04/2024 Height 66 in 11/04/2024 Weight 225.6 lbs 11/04/2024 BMI 36.41 kg/m2 11/04/2024 Encounters Encounter Location Date Provider Diagnosis Daniel [address] [place], [place] [id number] 11/04/2024 Mitch Gillette Type 2 diabetes andreina itus without complications E11.9 ; Carotid stenosis, bilateral I65.23 ; Mixed hyperlipidemia E78.2 ; Essential hypertension I10 ; Other chronic pain G89.29 ; Degenerative disc disease, lumbar M51.36 ; Obstructive sleep apnea G47.33 ; Simple chronic bronchitis J41.0 ; Type 2 diabetes mellitus with other circulatory complications E11.59 and Type 2 diabetes mellitus with other specified complication, unspecified whether long chain dyeing machine operator insulin use E11.69 Assessments Encounter Date Diagnosis (ICD Code) Assessment Notes Treatment Notes Treatment Clinical Notes Section Notes 11/04/2024 Type 2 diabetes mellitus without complications (ICD-10 - E11.9) 11/04/2024 Carotid stenosis, bilateral (ICD-10 - I65.23) 11/04/2024 Mixed hyperlipidemia (ICD-10 - E78.2) 11/04/2024 Essential hypertension (ICD-10 - I10) 11/04/2024 Other chronic pain (ICD-10 - G89.29) 11/04/2024 Degenerative disc disease, lumbar (ICD-10 - M51.36) 11/04/2024 Obstructive sleep apnea (ICD-10 - G47.33) 11/04/2024 Simple chronic bronchitis (ICD-10 - J41.0) 11/04/2024 Type 2 diabetes mellitus with other circulatory complications (ICD-10 - E11.59) 11/04/2024 Type 2 diabetes mellitus with other specified complication, unspecified whether longterm insulin use (ICD-10 - E11.69) Plan Of Treatment Medication Medication Name Sig Start Date Stop Date Notes traMADol-Acetaminophen 37.5- 325 MG 1 tab(s) orally three times a day as needed 11/04/2024 Next Appt Details Follow Up: 4 Months, Reason: Provider Name:Mitch Bean er, 03/14/2025 09:30:00 AM, [address], [address], [place], [id number], Progress Notes * PRABHJOT COONEYDOB:1945 (79 yo M)Acc No.[id number]:11/04/2024 Progress Notes Patient: PRABHJOT APARICIO Provider: Mitch Gillette M.D. :1945 A ge:79 Y S ex:Male Date:11/04/2024 Address:[address] [id number] Subjective: * Chief Complaints: * 1 . 4 month check. 2. Needs labs & diabetic eye exam. * HPI: H PI: 79 year old male presents with c/o Patient is here today for?Pt is here today for a 4 month check up. Pt sts he had some tests run at the [facility] last month for his heart and sts he would like to discuss that today. Had MRI of heart, stress test and echocardiogram. Had labwork. Patient states there was slight blockage...30%. . * ROS: D ERMATOLOGY: no R eric. [...] neg study, 02/16/2021 COVID 19 infection, Regen-Cov infusion, August 2024 [facility] cardiac evaluation, GXT, echo, MRI. * Surgical History: f [facility] digit left hand repair 1984, prostate exploratory and biopsy 06/07/2004, appendectomy 1956, circumcision 1946, cardiac catheterization 05/14/07, CABG, [place] of LAD, SVG of RCA 05/14/07, heart cath 04-21-08; 06/2015, prostatectomy- [facility] 03/26/12, teeth removed 03/14, Heart Cath-[facility] 01/14, Neg colonoscopy, Dr. Vale 2007, bilateral iridectomies October-Nov 2021. * Hospitalization/Major Diagno stic Procedure: s ee above , ER triquetral fracture 11/02/09, [facility] ER chestpain 05/2010, [facility]- Prostatectomy 03/26/12, [facility]- SOA 08/06-08/10/15. * Family History: F [...] times a day as needed , Taking traMADol-Acetaminophen 37.5-325 MG Tablet 1 tab(s) orally three times a day as needed , Taking Rosuvastatin Calcium 40 MG Tablet 1 tab(s) orally once a day , Taking Clopidogrel Bisulfate 75 mg Tablet TAKE ONE TABLET BY MOUTH EVERY DAY , Taking Spironolactone 25 MG Tablet 1 tab(s) orally once a day , Taking Hyoscyamine Sulfate 0.125 mg Tablet Sublingual DISSOLVE ONE TABLET in MOUTH THREE TIMES DAILY NEEDED , Taking metFORMIN HCl 500 mg Tablet TAKE ONE TABLET BY MOUTH EVERY DAY , Taking Donepezil HCl 5 mg Tablet [...] P enicillin, Codeine. Objective: * Vitals: W t: 225.6, Temp: 97.7, BP: 130/60, HR: 85, O2 Sat: 96% on RA, Nurse: roosevelt, Ht: 66, BMI:36.41. * Examination: G eneral Examination: General Appearance: [...] without complications - E11.9 (Primary) 2 . C arotid stenosis, bilateral - I65.23 3 . M ixed hyperlipidemia - E78.2 4 . E ssential hypertension - I10 5 . O ther chronic pain - G89.29 6. D egenerative disc disease, lumbar - M51.36 7 . O bstructive sleep apnea - G47.33 8 . S imple chronic bronchitis - J41.0 9 . T ype 2 diabetes mellitus with other circulatory complications - E11.59 1 0. Type 2 diabetes mellitus with other specified complication, unspecified whether long chain dyeing machine operator insulin use - E11.69 Plan: * Treatment: Value Reference Range B UN 19 8-23 - mg/dL * C alcium 9.2 8.6-10.4 - mg/dL * C hloride 103 97-108 - mmol/L * C O2 23 20-32 - mmol/L * C reatinine 0.87 0.70-1.30 - mg/dL * G lucose 106 H 65-99 - mg/dL * P otassium 4.4 3.5-5.3 - mmol/L * S odium 138 135-145 - mmol/L * e GFR by Creatinine 88 >59 - mL/min/1.73m2 * Sierra Joseph 11/05/2024 01: 21:51 PM EDT > Left voicemail informing of normal lab results ?LAB: Glycohemoglobin A1c (in house) (Collection Date & Time - 11/04/2024)? 6.4% Normal* Value Reference Range g lycohemoglobin 6.4% 5 - 6.5 % * Sonja Espinosa 11/04/2024 11:03 :38 AM EDT > Sierra Joseph 11/05/2024 01:21:51 PM EDT > Left voicemail informing of normal lab results 2.?Degenerative disc disease, lumbar? Refill traMADol-Acetaminophen Tablet, 37.5-325 MG, 1 tab(s), orally, three times a day as needed, 90, Refills 2.?? * Procedure Codes: G 2211 Complex e/[place], [address] GLYCATED HEMOGLOBIN TEST, Modifiers: QW , 3044F HG A1C LEVEL LT 7.0%, 1036F TOBACCO NON-USER, G8783 BP SCR PRFRM RCMDD DEFIND SCR INTVL, G8752 MOST RECENT SYSTOLIC BP < 140MM HG, G8754 MOST RECENT DIASTOLIC BP < 90MM HG * Follow Up: 4 Months * Images: Billing Information: * Visit Code: 16707 Office Visit, Est Pt., Level 4. * Procedure Codes: G2211 Complex e/[place]. [address] GLYCATED HEMOGLOBIN TEST. Modifiers: QW 3044F HG A1C LEVEL LT 7.0%. 1036F TOBACCO NON-USER. G8783 BP SCR PRFRM RCMDD DEFIND SCR INTVL. G8752 MOST RECENT SYSTOLIC BP < 140MM HG. G8754 MOST RECENT DIASTOLIC BP < 90MM HG. * Electronic signature of Mitch Gillette MD on 11/11/2024 at 08:31 AM EDT Sign off status: Pending * Provider: Mitch Gillette M.D. Date: 0 11/04/2024 Generated for Myriam benton/Leatha/eTransmitting on: 0 11/11/2024 08:31 AM EDT History and Physical Notes * HPI (History of Present Illness) Category Sub-Category Detail Notes Category Not es HPI Patient is here today for Pt is here today for a 4 month check up. Pt sts he had some tests run at the [facility] last month for his heart and sts he would like to discuss that today. Had MRI of heart, stress test and echocardiogram. Had labwork. Patient states there was slight blockage...30%. Examination Category Sub-Category Detail Notes Category Not [...]
--- OUTSIDE RECORDS SUMMARY | 2024-11-11 08:31 | XMS_ITS | Clinical Summary ---
Author Organization [employer] ([place], [place], [place], [place]) Address [address] [place] [address] Care Team Providers Care Metal Control Coordinator Name Role Phone Cornel Gillette MD Primary Care Provider [phone] Allergies Active Allergy Reactions Criticality Noted Date Comments Codeine 07/22/2022 Penicillins 07/22/2022 Medications aspirin 81 MG EC tablet Take 1 tablet (81 mg total) by mouth in the morning. Active cetirizine (ZyrTEC) 10 MG tablet Take 1 tablet (10 mg total) by mouth in the morning. Active clopidogreL (PLAVIX) 75 mg tablet Take 1 tablet (75 mg total) by mouth in the morning. . Active donepeziL (ARICEPT) 5 MG tablet Take 1 tablet (5 mg total) by mouth nightly. Active furosemide (LASIX) 40 MG tablet Take 1 tablet (40 mg total) by mouth in the morning and 1 tablet (40 mg total) before bedtime. Active gabapentin (NEURONTIN) 100 MG capsule Take 1 capsule (100 mg total) by mouth in the morning and 1 capsule (100 mg total) at noon and 1 capsule (100 mg total) in the evening. Active hydroCHLOROthia zide (MICROZIDE) 12.5 mg capsule Take 1 capsule (12.5 mg total) by mouth in the morning. Active isosorbide dinitrate (ISORDIL) 30 MG tablet Take 1 tablet (30 mg total) by mouth in the morning and 1 tablet (30 mg total) at noon and 1 tablet (30 mg total) in the evening and 1 tablet (30 mg total) before bedtime. Active lisinopriL (PRINIVIL,ZESTR IL) 5 MG tablet Take 1 tablet (5 mg total) by mouth in the morning. Active losartan (COZAAR) 25 MG tablet Take 1 tablet (25 mg total) by mouth in the morning. Active metFORMIN (GLUCOPHAGE) 500 MG tablet Take 1 tablet (500 mg total) by mouth 2 (two) times daily with breakfast and dinner . Active nabumetone (RELAFEN) 500 MG tablet Take 1 tablet (500 mg total) by mouth in the morning and 1 tablet (500 mg total) before bedtime. Active nitroglycerin (NITROSTAT) 0.[address] 1 tablet (0.4 mg total) under the tongue every 5 (five) minutes as needed Put 1 pill under tongue every 5min as needed for chest pain.No more than 3 doses in 15min.Call 911 if pain unrelieved 5min after 1st dose. Active potassium chloride (KLOR-CON-M) 10 MEQ CR tablet Take 1 tablet (10 mEq total) by mouth in the morning. Active pravastatin (PRAVACHOL) 80 MG tablet Take 1 tablet (80 mg total) by mouth in the morning. Active omeprazole (PriLOSEC) 20 MG capsule Take 1 capsule (20 mg total) by mouth in the morning. Active rosuvastatin (CRESTOR) 40 MG tablet Take 1 tablet (40 mg total) by mouth in the morning. Active spironolactone (ALDACTONE) 25 MG tablet Take 1 tablet (25 mg total) by mouth in the morning. Active sulindac (CLINORIL) 200 MG tablet Take 1 tablet (200 mg total) by mouth in the morning and 1 tablet (200 mg total) before bedtime. Active traMADol-acetam inophen (ULTRACET) 37.5-325 mg per tablet Take 1 tablet by mouth every 6 (six) hours as needed. Active albuterol HFA (VENTOLIN HFA) 90 mcg/actuation inhaler Inhale 1 puff by mouth via inhaler every 6 (six) hours as needed. Active Active Problems Problem Noted Date Diagnosed Date CAD (coronary artery disease) 07/18/2022 Overview (07/18/2022): 12/11/2015: BARRAGAN to LAD atretic [place] LAD with irregularity only RCA occluded SVG to RCA patent HLD (hyperlipidemia) 07/18/2022 HTN (hypertension) 07/18/2022 Social History Tobacco Use Types Packs/Day Years Used Date Smoking Tobacco: Never Smokeless Tobacco: Never Tobacco Cessation:Counseling Given: Not Answered Family and Community Support Answer Ottoniel e Recorded Help with Day to Day Activities Not on file 05/19/2023 Feeling Lonely or Isolated Not on file 05/19 Educational Attainment Answer Date Wade rded Speak language other than Armenian at home Not on file 05/19/2023 Want help with school or training Not on file 05/19/2023 Substance Use Answer Date Recorded Used prescription meds for non-medical reasons N ot on file 05/19/2023 Used illegal drugs past 12 months Not on file 05/19/2023 Sex and Gender Information Value Date Recorded Sex Assigned at Not on file Legal Sex Male 3:38 PM CDT Gender Identity Not on file Sexual Orientation Not on file Last Filed Vital Signs Vital Sign Reading Time Taken Comments Blood Pressure 117/74 07/22/2022 10:33 AM EDT Pulse 67 07/22/2022 10:33 AM EDT Temperature - - Respiratory Rate - - Oxygen Saturation - - Inhaled Oxygen Concentration - - Weight 102.5 kg (226 lb) 07/22/2022 10:33 AM EDT Height 167.6 cm (5' 6 ) 07/22/2022 10:33 AM EDT Body Mass Index 36.48 07/22/2022 10:33 AM EDT Plan of Treatment Health Maintenance Due Date Last Done Comments Medicare Initial AWV G0438 Depression Screening (12+) 1958 Hepatitis C Screening 1964 DTAP/TDAP/TD VACCINES (1 - Tdap) 1965 Pneumococcal 50+ years (1 of 2 - PCV) 1965 Shingles Vaccine (Zoster) (1 of 2) 1996 Respiratory Syncytial Virus (RSV) Adult or (1 - 1-dose 75+ series) 2021 Tobacco Cessation Counseling and Screening (12+) 07/23/2023 07/22/2022 COVID-19 VACCINE ( - 2023-2 5 season) 2023 Falls Risk Screening 05/01/2024 Influenza Vaccine (#1) 2024 0, 02/25/2019, 03/14/2018, Additional history exists Insurance MEDICARE PART A B [employer] [place] [id number] Care Teams Metal Control Coordinator Relationship Specialty Start Date End Date Cornel Gillette MD [address] [place] [address] PCP - General Family Medicine 07/22/22
--- OUTSIDE RECORDS SUMMARY | 2024-11-11 08:31 | XMS_ITS ---
Author Organization Unknown Vital Signs BpStanding BpSitting BpSupine Date Temperature HeartRate Weight Hei ght Spo2 Respiration Bmi HeadCircumference FieldCount TimeRecorded NeckCircumferen ce WaistCircumference Pulse 136/80 07/01 00:00 :00 97.7 62 222,6.4 0 5,6 35.8 9 6 10/21/2024 10:15:00 152/80 04/01 00:00 :00 97.8 67 220,9.6 0 5,6 35.6 0 6 10/21/2024 09:45:00 130/70 11/30 00:00 :00 97.9 67 219,6.4 0 5,6 35.4 1 6 10/21/2024 10:00:00
--- OUTSIDE RECORDS SUMMARY | 2024-11-11 08:31 | XMS_ITS | Referral Summary ---
Author Organization [employer] ([place], [place], [place], [place]) Address [address] [place] [address] Care Team Providers Care Asbestos Worker Name Role Phone Cornel Gillette MD Primary Care Provider [phone] [phone] Allergies Active Allergy Reactions Criticality Noted Date [...] Overview (07/18/2022): 12/11/2015: BARRAGAN to LAD atretic [place] LAD with irregularity only RCA occluded SVG [...] Date Wade rded Speak language other than Cameroonian at home Not on file 05/19/2023 Want [...] 07/22/2022 10:33 AM EDT Plan of Treatment Not on file Insurance MEDICARE PART A B [employer] Care Teams Asbestos Worker Relationship Specialty Start Date End Date Cornel Gillette MD [address] [place] [address] PCP - General Family Medicine 07/22/22
--- OUTSIDE RECORDS SUMMARY | 2024-11-11 08:32 | XMS_ITS | Encounter Summary ---
Author Organization [employer] ([place], [place], [place], [place]) Address [address] [place] [address] Care Team Providers Care Track Machine Operator Repairer Name Role Phone Cornel Gillette MD Primary Care Provider [phone] Encounter Details Date Type Department Care Team (Late st Contact Info) Description 02/02/2021 Transcribed Document [facility] Family Medicine [facility] [place] [address] ProviderJoey MD [address] [place], [place] [id number] Social History Tobacco Use Types Packs/Day Years Used Date Smoking Tobacco: Never Assessed Sex and Gender Information Value Date Recorded Sex Assigned at Not on file Legal Sex Male 3:38 PM CDT Gender Identity Not on file Sexual Orientation Not on file documented as of this encounter Miscellaneous Notes * [employer] Conversion Note - Joey ProviderMD - 02/02/2021 12:37 PM CDT DATE OF SERVICE: 01/26/2021 SLEEP STUDY. Height 66, weight 210, body mass index 34. TESTING PERFORMED: Polysomnography. MONTAGE: F3-M2, F4-1, C3-M2, O1-M2, O2-M1, LOC-M2, PALOMA-M2, submental EMG (3 leads), L tibialis anterior, R tibialis anterior, ECG, SpO2, nasal airflow (pressure), oral airflow (thermal), thoracic respiratory effort and abdominal respiratory effort. FINDINGS: 1. The total recording time was 409 minutes. The total sleep time was 359 minutes. Sleep efficiency is 89%. 2. There was 74.5 minutes of REM sleep present, accounting for 21% of the total sleep time with a short REM latency at 31.5 minutes. 3. Frequent EEG arousals and awakenings. 4. Mild leg movements were seen. The periodic leg movement with arousal index remains normal at 1.5. 5. Sleep apnea is present with an overnight AHI moderately elevated at 24.4. The AHI does become severe, limited to REM sleep at 51.5. 6. Events consisted of 7 central apneas, 6 obstructive apneas, and 150 hypopneas. 7. Nocturnal oxygen desaturation occurred to a minimum saturation of 73%. There was 16 minutes below 88% saturation. 8. End-tidal CO2 monitoring revealed an average end-tidal CO2 of 33 with a highest recorded at 50. 9. EKG showed sinus rhythm with an average heart rate of 53, maximum heart rate of 73. IMPRESSION: 1. Moderate obstructive sleep apnea. The overnight average AHI is 24.4. The sleep apnea become severe, limited to REM sleep when the AHI increases to 51.5. 2. Huvq-yf-ywbqpgap nocturnal oxygen desaturation. 3. Frequent EEG arousals consistent with sleep disruption. 4. Short REM latency. PLAN: The patient is scheduled to return to clinic to review data and treatment options. In the interim, he will be offered a trial of auto CPAP at 6 to 20 cm. We will review medical and driving risks of sleep apnea and progress with therapy at followup as well. /[id number] Jayleen Preston MD PAC/AQ / PAC / MODL /[id number] CC: Dr. John Gillette Electronically signed by [facility] Conversion Environmental Health Technologist Cerner at 08/18/2022 5:48 PM CDT documented in this encounter Plan of Treatment Not on file documented as of this encounter Visit Diagnoses Not on filedocumented in this encounter Care Teams Track Machine Operator Repairer Relationship Specialty Start Date End Date Cornel Gillette MD [address] [place] [address] PCP - General Family Medicine 07/22/22 documented as of this encounter
--- OUTSIDE RECORDS SUMMARY | 2024-11-11 08:32 | XMS_ITS | Encounter Summary ---
Author Organization [employer] ([place], [place] Address [address] [place] [address] Care Team Providers Care Life Skills Instructor Name Role Phone Cornel Gillette MD Primary Care Provider [phone] Encounter Details Date Type Department Care Team (Late st Contact Info) Description 01/20/2021 Transcribed Document [facility] [place] [address] ProviderJoey MD [address] [place], [place] [id number] Social History Tobacco Use Types Packs/Day Years Used Date Smoking Tobacco: Never Assessed Sex and Gender Information Value Date Recorded Sex Assigned at Not on file Legal Sex Male 3:38 PM CDT Gender Identity Not on file Sexual Orientation Not on file documented as of this encounter Miscellaneous Notes * Cerner Conversion Note - Historical ProviderMD - 01/20/2021 9:11 AM CDT DATE OF SERVICE: 01/20/2021 SLEEP CONSULTATION HISTORY OF PRESENT ILLNESS: A 75-year-old gentleman who comes in today for evaluation, referred by Dr. South. Comprehensive notes from Dr. South reviewed. He has a history of coronary artery disease and has recently had trouble with edema. He has multiple problems including the use of chronic opiate therapy for pain that makes him at substantial risk for sleep apnea. In this setting, he has had negative sleep study several years ago. He recently has become more sleepy and tired. His tiredness is worse in the afternoon. He has been told that he snores. His [place] score is 19. He has noted trouble breathing at night particularly through his nose and apneas have been witnessed by his family. He has chronic pain, which he states is diffuse and takes tramadol 3 times a day. PAST MEDICAL HISTORY: He has a history of coronary artery disease with previous coronary bypass grafting. Details of notes per Dr. South noted. His ejection fraction has been normal. He has hypertension, hyperlipidemia, diabetes, and peripheral neuropathy and has a history of reflux. FAMILY HISTORY: Grandmother had diabetes. Father has heart disease. Otherwise noncontributory. REVIEW OF SYSTEMS: Detailed patient questionnaire is reviewed. Positive responses include stuffiness, shortness of air, heartburn, frequent urination, erectile dysfunction, back pain, neck pain, joint swollen, dizziness, night sweats, and fatigue. SOCIAL HISTORY: He is a prior smoker for 40 years of 2 packs a day, but quit in 2001. He does not use alcohol. He drinks caffeinated coffee daily. ALLERGIES: Penicillin and codeine. MEDICATIONS: He is on 1. Omeprazole. 2. Aspirin. 3. Isosorbide mononitrate. 4. Tramadol. 5. Voltaren gel. 6. Clopidogrel. 7. Donepezil. 8. Losartan. 9. Breo. 10. Ventolin. 11. Vitamin D. 12. propionate. 13. Sulindac. 14. Spironolactone. 15. Gabapentin. 16. Rosuvastatin. 17. Furosemide. 18. Glucophage (metformin). PHYSICAL EXAMINATION: VITAL SIGNS: His height is 6 feet 6 inches, weight is 214 pounds, body mass index 34, neck is 20, respirations 16, oxygen saturation 96%, blood pressure 147/74, heart rate is 65. GENERAL: He is well developed, well nourished, in no distress. HEENT: Eyes reveal pupils equal and round with sclerae and corneas clear. ENT, he has a mask on. NECK: Supple without JVD. RESPIRATIONS: Normal rate and pattern without labored breathing. CARDIAC: Heart rate regular without murmurs or gallops. EXTREMITIES: Gait is symmetric. NEUROLOGIC: He is alert, oriented. Mood and affect are appropriate. SKIN: No clubbing or cyanosis. IMPRESSION: 1. Hypersomnia. He has significant risk factors for sleep apnea and I agree for the need to follow up with sleep study. With his tramadol, he has a higher risk of complex sleep apnea and we will plan an in-lab study to be split if he qualifies for this CPAP trial in the lab. Risks and benefits of sleep therapy were discussed. It is possible this is contributing to his edema and his trouble with blood sugar control as well as his elevated blood pressure. 2. Coronary artery disease status post bypass. Ejection fraction normal recently per reports. 3. History of chronic obstructive pulmonary disease. This is an additive with long-term risk of sleep apnea as well. 4. Diabetes. He has had trouble with control recently and untreated sleep apnea may play a role. 5. Hypertension, elevated today. He is seeing Dr. Gillette. Treating sleep apnea may be helpful with this as well. PLAN: He will have an in-lab sleep study. Risks and benefits of sleep therapy discussed. He is to return for the results. If he has sleep apnea on this study, we will phone him and start therapy in the interim. It is a pleasure to see this pleasant gentleman and join in his care. /[id number] Jayleen Preston MD PAC/AQ / PAC / MODL /[id number] CC: MD Dr. Cornel Mahoney Electronically signed by [facility], [facility] Conversion Sound Truck Operator Cerner at 08/18/2022 6:14 PM CDT documented in this encounter Plan of Treatment Not on file documented as of this encounter Visit Diagnoses Not on filedocumented in this encounter Care Teams Life Skills Instructor Relationship Specialty Start Date End Date Cornel Gillette MD [address] [place] [address] PCP - General Family Medicine 07/22/22 documented as of this encounter
--- OUTSIDE RECORDS SUMMARY | 2024-11-11 08:32 | XMS_ITS | Data Portability ---
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 Plan of Treatment Reminders Order Date Submit Date Provider Last Modified By Organization Details Last Modified Time Details Appointments None recorded . Lab PSA, serum or plasma 020 11/22/[address] [facility], [address], [address], [place], [address], 0 09:56:16 urinalys is, dipstick , auto 020 05/24/19 20 [email or web address] [facility], [address], [address], [place], [address], 0 09:26:45 Referral None recorded . Procedures None recorded . Surgeries None recorded . Imaging None recorded . Medication Orders None recorded . Patient TargetsNo targets recorded. Patient Instructions Encounter Date Encounter Id Patient Instructions Last Modified By Organization Details Last Modified Time 11/22/2019 [id number] healthy together [id number] Not availabl e 11/22/2019 09:56:16 Reason for Referral None Reported. Results Created Date Observation Date Name Description Value Unit Range Abnormal Flag Note LastModifiedBy Organization Detail LastModifiedTime 05/24/19 20 05/24/2019 urina lysis , dipst ick, auto Unknown Analyte Yellow Not Available [facility] [address], [place], [address], 05/24/2019 09:19:02 05/24/19 20 05/24/2019 urina lysis , dipst ick, auto Unknown Analyte Clear Not Available [facility] [address] [facility] [address], [place], [address], 05/24/2019 09:19:02 05/24/19 20 05/24/2019 urina lysis , dipst ick, auto Unknown Analyte 1.010 Not Available [facility] [address] [facility] [address], [place], [address], 05/24/2019 09:19:02 05/24/19 20 05/24/2019 urina lysis , dipst ick, auto Unknown Analyte 1.003 - 1.035 Not Available [facility] [address] [facility] [address], [place], [address], 05/24/2019 09:19:02 05/24/19 20 05/24/2019 urina lysis , dipst ick, auto Unknown Analyte 8.0 Not Available [facility] [address] [place] [address] [address], [place], [address], 05/24/2019 09:19:02 05/24/19 20 05/24/2019 urina lysis , dipst ick, auto Unknown Analyte 5.0 - 8.0 Not Available [facility] [address] [address], [place], [address], 05/24/2019 09:19:02 05/24/19 20 05/24/2019 urina lysis , dipst ick, auto Unknown Analyte 25 Clyde/ul Trace Not Available [facility] [address], [place], [address], 05/24/2019 09:19:02 05/24/19 20 05/24/2019 urina lysis , dipst ick, auto Unknown Analyte Negati ve Not Available [facility] [address], [place], [address], 05/24/2019 09:19:02 05/24/19 20 05/24/2019 urina lysis , dipst ick, auto Unknown Analyte Negati ve Not Available [facility] [address], [place], [address], 05/24/2019 09:19:02 05/24/19 20 05/24/2019 urina lysis , dipst ick, auto Unknown Analyte Negati ve Not Available [facility] [address], [place], [address], 05/24/2019 09:19:02 05/24/19 20 05/24/2019 urina lysis , dipst ick, auto Unknown Analyte Negtiv e Not Available [facility] [address], [place], [address], 05/24/2019 09:19:02 05/24/19 20 05/24/2019 urina lysis , dipst ick, auto Unknown Analyte Negati ve - Trace Not Available [facility] [address], [place], [address], 05/24/2019 09:19:02 05/24/19 20 05/24/2019 urina lysis , dipst ick, auto Unknown Analyte Normal Not Available [facility] [address], [place], [address], 05/24/2019 09:19:02 05/24/19 20 05/24/2019 urina lysis , dipst ick, auto Unknown Analyte Normal Not Available [facility] [address], [place], [address], 05/24/2019 09:19:02 05/24/19 20 05/24/2019 urina lysis , dipst ick, auto Unknown Analyte Negati ve Not Available [facility] [address], [place], [address], 05/24/2019 09:19:02 05/24/19 20 05/24/2019 urina lysis , dipst ick, auto Unknown Analyte Negati ve Not Available [facility] [address], [place], [address], 05/24/2019 09:19:02 05/24/19 20 05/24/2019 urina lysis , dipst ick, auto Unknown Analyte Normal Not Available [facility] [address], [place], [address], 05/24/2019 09:19:02 05/24/19 20 05/24/2019 urina lysis , dipst ick, auto Unknown Analyte Normal - 1mg/dl Not Available [facility] [address], [place], [address], 05/24/2019 09:19:02 05/24/19 20 05/24/2019 urina lysis , dipst ick, auto Unknown Analyte Negati ve Not Available [facility] [address], [place], [address], 05/24/2019 09:19:02 05/24/19 20 05/24/2019 urina lysis , dipst ick, auto Unknown Analyte Negati ve Not Available [facility] [address], [place], [address], 05/24/2019 09:19:02 05/24/19 20 05/24/2019 urina lysis , dipst ick, auto Unknown Analyte Negati ve Not Available [facility] [address], [place], [address], 05/24/2019 09:19:02 05/24/19 20 05/24/2019 urina lysis , dipst ick, auto Unknown Analyte Negati ve Not Available [facility] [address], [place], [address], 05/24/2019 09:19:02 05/24/19 20 05/24/2019 urina lysis , dipst ick, auto Unknown Analyte Clean Catch Not Available [facility] [address], [place], [address], 05/24/2019 09:19:02 05/24/19 20 05/24/2019 urina lysis , dipst ick, auto Unknown Analyte Automa carlos manuel Not Available [facility] [address], [place], [address], 05/24/2019 09:19:02 11/22/19 20 11/22/2019 PSA, serum or plasm a PSA <0.04 NG/mL 0.0 - 4.0 Not Available [facility] [address] [facility] [address], [place], [address], 11/22/2019 09:22:13 Result Notes None recorded. 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 Medical Equipment None Reported. Allergies Allergen ID Allergen Name Allergen Category Reaction Reaction Severity Criticality Documentation Date Start Date Code Code System Note Provider Name and Address Organization Details Recorded Time 008634 codeine medicatio n Not available Not available Not available 03/25/20162012 2670 RxNorm Sever ity: Sever e; Comme nt: Creat ed By: Jael Cohen; Creat ed Date: 2012 10:19 :24 AM; Not Available [facility] 6 02:59:54 027330 Product containin g penicilli n (product) medicatio n rash mild Not available 03/25/20162012 29917 8001 SNOMED React ion: RASH; Sever ity: Mild; Comme nt: Creat ed By: Jael Cohen; Creat ed Date: 2012 10:19 :33 AM; Not Available [facility] 6 10:20:36 Medications Name Sig Start Date Stop Date Status Note LastModified by Organization Details LastModified Time Anti-Diarr heal (loperamid e) 2 mg tablet As needed active Frequency: prn;Medica tion Descriptio n: loperamide ; Dosage:as directed; Route:oral ; refills:0 Not Available Not Available Not Available nabumetone 750 mg tablet Two times a day active Frequency: bid;Medica tion Descriptio n: nabumetone ; Dosage:1; Route:oral ; refills:0; Quantity:6 0 tablet Not Available Not Available Not Available cetirizine 10 mg tablet Daily active Frequency: daily;Alt Frequency: prn;Medica tion Descriptio n: cetirizine ; Route:oral ; refills:0 Not Available Not Available Not Available pravastati n 40 mg tablet Daily active Frequency: daily;Medi cation Descriptio n: pravastati n; Route:oral ; refills:0 Not Available Not Available Not Available isosorbide mononitrat e 20 mg tablet Daily active Frequency: daily;Medi cation Descriptio n: isosorbide mononitrat e; Dosage:1; Route:oral ; refills:0 Not Available Not Available Not Available Prilosec 20 mg capsule,de layed release Every night at bedtime active Frequency: qhs;Alt Frequency: prn;Medica tion Descriptio n: omeprazole ; Dosage:1; Route:oral ; refills:0; Quantity:3 0 enteric coated capsule Not Available Not Available Not Available Plavix 75 mg tablet Every morning active Instructio ns: Half hour before or 2 hours after breakfast, for circulatio n.;Frequen cy: qam;Medica tion Descriptio n: clopidogre l; Dosage:1; Route:oral ; refills:12 Not Available Not Available Not Available Ultracet 37.5 mg-325 mg tablet active Medication Descriptio n: acetaminop hen-tramad ol; Dosage:as directed; Route:oral ; refills:0 Not Available Not Available Not Available hydrochlor othiazide 12.5 mg capsule Daily active Duration: 10 days;Frequ ency: daily;Medi cation Descriptio n: hydrochlor othiazide; Dosage:1; Route:oral ; refills:0; Quantity:3 0 Not Available Not Available Not Available aspirin 81 mg tablet Daily active Frequency: daily;Medi cation Descriptio n: aspirin; Dosage:1; Route:oral ; refills:0 Not Available Not Available Not Available lisinopril 5 mg tablet Daily active Frequency: daily;Medi cation Descriptio n: lisinopril ; Dosage:1; Route:oral ; refills:0 Not Available Not Available Not Available vitamin B complex Daily active Frequency: daily;Medi cation Descriptio n: multivitam in; Dosage:1; refills:0 Not Available Not Available Not Available Vitamin D3 active Medicatio n Descriptio n: cholecalci ferol; Route:oral ; refills:0 Not Available Not Available Not Available Voltaren 1 % topical gel active Medication Descriptio n: diclofenac topical; Route:topi heriberto; refills:0 Not Available Not Available Not Available Vitals Date Recorded Body height Body mass index (BMI) Body weight Provider Name and Address Organization Details Last Updated DateTime 05/24/2019 167.64 cm 34.7 kg/m2 98680.36 g Lynn Elizondo [facility] 05/24/2019 09:18:24 Date Recorded Body height Body mass index (BMI) Body weight Provider Name and Address Organization Details Last Updated DateTime 11/22/2019 167.64 cm 34.7 kg/m2 68009.36 aditya Lucia Jose [facility] 11/22/2019 09:21:53 Social History Question Answer Notes LastModified by Organizat ion Details LastModified Time Tobacco Smoking Status Never Smoker Lynn Elizondo [facility] 05/24/2019 09:18:30 How Much Tobacco Do You Chew? None [email or web address] Information not available 05/24/2019 Sex: Unknown Functional Status None recorded. Mental Status None recorded. Family History Nothing Reported. Medical History No medical history recorded. Past Encounters Encounter ID Performer Location Encounter Start Date Encounter Closed Date Diagnosis/Indication Diagnosis SNOMED-CT Code Diagnosis ICD10 Code Diagnosis Note [id number] MD ALLYN SILVA [facility] [address] [place] [address] 05/24/2019 08:47:41 05/24/2019 09:22:44 History of malignant neoplasm of prostate 605009646 Z85.46 follow-up 6 months with PSA here in the office Male urina ry stress incontinence 354449228 N39.3 observe [id number] MD ALLYN SILVA [facility] [address] [place] [address] 11/22/2019 09:00:25 11/22/2019 10:03:45 History of malignant neoplasm of prostate 745280271 Z85.46 follow-up 6 months with PSA here in the office Male adriana ry stress incontinence 019805378 N39.3 observe Health Concerns Section Related Observation LastModified by Organization Detai ls LastModified Time None Recorded Concern Status LastModified by Organization Details LastModified Time None Recorded Advance Directives Directive None Recorded Payers Insurance Date Sequence Insurance Name Policy Number Policy [employer] Covered Member ID [employer] Member ID Guarantor Name 11/19/2019 1 [place] Karson Tripp [id number] Karson Tripp 12/11/2019 2 [employer] (MEDICARE SUPPLEMENT) Karson Tripp [id number] Kasron Tripp Notes Date Note Type Note Provider Name and Address Organization Details Recorded Time 05/24/2019 text/html patient is now 7-1/2 years following robotic prostatectomy. He had postoperative radiation therapy his PSA has remained undetectable he does have mild urinary incontinence. He is now on a diuretic which has accentuated this. He manages his incontinence with pads. He is not an additional intervention regarding this. DOC LINO MD [address] [place] [address], [phone], [facility] 05/24/2019 09:27:15 11/22/2019 text/html patient is here in follow-up of robotic prostatectomy 7 years ago. PSA remains nondetectable. He has some moderate stress urinary incontinence which he manages with absorbent pads. He otherwise feels well. PSA today was nondetectable. DOC LINO MD [address] [place] [address], [address], [facility] 11/22/2019 09:57:03
--- OUTSIDE RECORDS SUMMARY | 2024-11-11 08:32 | XMS_ITS | Patient Health Record ---
[facility] [address] [place] [id number] Care Team Providers Care Grocery Store Associate Name Role Phone Mitch Gillette Primary Care Provider [phone] Allergies Allergen (clinical drug ingredient) Drug/Non Drug Allergy documented on EMR Reaction Allergy Type Onset Date Status codeine Codeine Unknown Drug Allergy Active Penicillin Unknown Drug Allergy Active Results Component Value Reference Range Notes Glycohemoglobin A1c (in hous e) Reviewed date:12/01/2023 10:31:20 AM Interpretation: Performing Lab: Notes/Report: glycohemoglobin 6.0% 5 - 6.5 % Glycohemoglobin A1c (in hous e) Reviewed date:07/01/2024 10:57:08 AM Interpretation: Performing Lab: Notes/Report: glycohemoglobin 7.3% 5 - 6.5 % P-Comprehensive Metabolic Pa deuce (CMP) Reviewed date:07/04/2024 02:19:23 PM Interpretation:gluc 135, a1c discussed in OV Performing Lab: Notes/Report: Test performed by [facility] , [address], [place] [address] Steve Zeng MD, License Examiner CLIA: [id number] Sodium 136 135-145 mmol/L Potassium 4.1 3.5-5.3 [...] 0.4 <0.2-1.2 mg/dL A/G Ratio 1.7 1.1-2.5 Glycohemoglobin A1c (in hous e) Reviewed date:04/01/2024 11:54:58 AM Interpretation: Performing Lab: Notes/Report: glycohemoglobin 6.3% 5 - 6.5 % P-Comprehensive Metabolic Pa deuce (CMP) Reviewed date:04/08/2024 01:16:18 PM Interpretation:co2- 21, gluc 104, bun 25 Performing Lab: Notes/Report: Test performed by [facility] [address] [place], [place] [email or web address] [place] , [address], [place] [address] Steve Zeng MD, License Examiner CLIA: [id number] Sodium 139 135-145 mmol/L Potassium 4.5 3.5-5.3 [...] 0.2 <0.2-1.2 mg/dL A/G Ratio 1.3 1.1-2.5 P-Basic Metabolic Panel (BMP ) Reviewed date:11/05/2024 01:22:03 PM Interpretation:Normal Performing Lab: Notes/Report: Test performed by [facility] [address] [place], [place] [email or web address] [place] , [address], [place] [address] Steve Zeng MD, License Examiner CLIA: [id number] Sodium 138 135-145 mmol/L Potassium 4.4 3.5-5.3 mmol/L Chloride 103 97-108 mmol/L CO2 23 20-32 mmol/L Glucose 106 65-99 mg/dL BUN 19 8-23 mg/dL Creatinine 0.87 0.70-1.30 mg/dL Calcium 9.2 8.6-10.4 mg/dL eGFR by Creatinine 88 >59 mL/min/1.73m2 Glycohemoglobin A1c (in hous e) Reviewed date:11/05/2024 01:22:04 PM Interpretation:6.4% Normal Performing Lab: Notes/Report: 6.4% Normal glycohemoglobin 6.4% 5 - 6.5 % Medications Medication SIG (Take, Route, Frequency, Duration) Notes Start Date End Date Status Breo Ellipta 200-25 MCG/ACT 1 puff(s) in haled once a day Active Hyoscyamine Sulfate 0.125 mg DISSOLVE ON E TABLET in MOUTH THREE TIMES DAILY NEEDED; Duration: 30 Active Tylenol 500 MG 2-6 TABS ONCE DAILY Active Spironolactone 25 MG 1 tab(s) orally onc e a day; Duration: 90 days Active Imodium A-D 2 MG 1 tab(s) orally twic e a day Active Clopidogrel Bisulfate 75 mg TAKE ONE TAB LET BY MOUTH EVERY DAY; Duration: 90 Active Aspirin Adult Low Dose 81 MG 1 tab(s) orally daily Active Rosuvastatin Calcium 40 MG 1 tab(s) oral ly once a day; Duration: 90 days Active traMADol-Acetaminophen 37.5-325 MG 1 tab(s) orally three times a day as needed 11/04/2024 Active Omeprazole 20 MG 1 cap(s) orally once a day Active Voltaren 1 % 2 g applied topicall y 4 times a day Active Donepezil HCl 5 mg TAKE ONE TABLET BY M OUTH EVERY DAY AT BEDTIME; Duration: 30 Active Fluticasone Propionate 50 MCG/ACT 1 spray(s) each nostril once a day; Duration: 30 day(s) 09/21/2018 Active metFORMIN HCl 500 mg TAKE ONE TABLET BY MOUTH EVERY DAY; Duration: 90 Active Furosemide 40 mg TAKE ONE TABLET BY M OUTH TWICE DAILY; Duration: 30 Active Ventolin HFA 108 (90 Base) MCG/ACT 2 inhalations inhaled four times a day as needed Active Gabapentin 100 MG 1 am, 3 hs orally 2 times a day 08/03/2021 Active Losartan Potassium 50 mg TAKE ONE TABLET BY MOUTH TWICE DAILY; Duration: 30 Active Potassium Chloride ER 10 MEQ 1 tab(s) or ally 2 times a day; Duration: 30 Active Isosorbide Mononitrate ER 30 mg TAKE ONE TABLET BY MOUTH EVERY DAY IN THE MORNING; Duration: 30 Active Immunizations Vaccine Route Administration Date Status Comme nts [id number] e pts. IM Intramuscular 02/23/2011 Administered xFluzone (6mos and older)-trivalent IM Intramuscular 02/07/2012 Administered xFlu shot-36 months and older IM Intramuscular 04/08/2005 Administered xFlu shot-36 months and older IM Intramuscular 03/22/2006 Administered xFlu shot-36 months and older IM Intramuscular 02/27/2007 Administered xFlu shot-36 months and older IN intranasal 02/21/2008 Administered xFlu shot-36 months and older IM Intramuscular 03/05/2010 Administered Tetanus Tdap-Adacel (over 7yrs) IM Intramuscular 03/23/2011 Administered Prevnar (PCV7) Unknown 05/14/2013 Administered Prevnar (PCV13) IM Intramuscular 07/08/2014 Administered PNEUMOVAX 23 VACCINE IM Intramuscular 03/23/2011 Administe red pneumovax IM Intramuscular 04/08/2005 Administered Fluzone High Dose (65yr and older) IM Intramuscular 02/05/2013 Administered Fluzone High Dose (65yr and older) IM Intramuscular 02/24/2016 Administered Fluzone High Dose (65yr and older) IM Intramuscular 01/31/2017 Administered Fluzone High Dose (65yr and older) IM Intramuscular 03/14/2018 Administered Fluzone High Dose (65yr and older) IM Intramuscular 02/25/2019 Administered Fluzone High Dose (65yr and older) IM Intramuscular 01/01/2020 Administered Fluzone High Dose (65yr and older) IM Intramuscular 03/23/2022 Administered Problems Problem Type SNOMED Code ICD Code Onset Dates Problem Status W/U Status Risk Notes Problem Type II diabetes mellitus without complication (589314062) Type 2 diabetes mellitus without complications (E11.9) Active confirmed Problem 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 (278078775) Type 2 diabetes mellitus with other circulatory complications (E11.59) Active confirmed Problem Essential hypertension (40651441) Essential hypertension (I10) Active confirmed Problem Arthropathy (235292661) Arthropathy (M12.9) Active confirmed Problem Degeneration of lumbar intervertebral disc (24802942) Degenerative disc disease, lumbar (M51.36) Active confirmed Problem Myalgia (15072478) Myalgia (M79.1) Active confi rmed Problem Obstructive sleep apnea (60522428) Obstructive sleep apnea (G47.33) Active confirmed Problem Memory loss (05951340) Memory loss (R41.3) Active confirmed Problem Actinic keratosis (574238) Actinic keratosis (L57.0) Active confirmed Problem Sciatica (79023476) Lumbago with sciatica, right side (M54.41) Active confirmed Problem Malignant neoplasm of prostate (179697362) Malignant neoplasm of prostate (C61) Active confirmed Problem Mixed hyperlipidemia (444019442) Mixed hyperlipidemia (E78.2) Active confirmed Problem Anxiety disorder (290402365) Anxiety disorder, unspecified (F41.9) Active confirmed Problem Simple chronic bronchitis (12345631) Simple chronic bronchitis (J41.0) Active confirmed Problem Sciatica (83558831) Lumbago with sciatica, left side (M54.42) Active confirmed Problem Hip pain (22377728) Hip pain (M25.559) Active c onfirmed Problem Chronic pain (75402438) Other chronic pain (G89.29) Active confirmed Problem Mixed anxiety and depressive disorder (091183787) Anxiety associated with depression (F41.8) Active confirmed Problem Atherosclerosis of coronary artery without angina pectoris (074465134943975) Athscl heart disease of [place] coronary artery w/o ang pctrs (I25.10) Active confirmed Problem Upper respiratory infection (17043885) Upper respiratory tract infection, unspecified type (J06.9) Active confirmed Problem Skin cancer (654476517) Skin cancer (C44.90) Active confirmed Problem Occlusion and stenosis of multiple and bilateral cerebral arteries (602434178) Carotid stenosis, bilateral (I65.23) Active confirmed Problem Stable angina due to coronary arteriosclerosis (disorder) (46892006005586121) Atherosclerosis of [place] coronary artery of [place] heart with stable angina pectoris (I25.119) Active confirmed Problem Skin sensation disturbance (89653139) Right hand paresthesia (R20.2) Active confirmed Problem Macrocytosis - no anemia (273184599) Macrocytosis without anemia (D75.89) Active confirmed Problem Seasonal allergic rhinitis (496628934) Seasonal allergic rhinitis, unspecified trigger (J30.2) Active confirmed Problem Malignant neopla sm of skin of right upper extremity (C44.602) Active confirmed Problem Tomography - chest abnormal (324041465) Abnormal CT of the chest (R93.89) Active confirmed Problem Type 2 diabetes mellitus with other specified complication, unspecified whether half-way insulin use (E11.69) Active confirmed Vital Signs Heart Rate 85 /min 11/04/2024 Blood pressure diastolic 60 mm Hg 11/04/2024 Height 66 in 11/04/2024 Blood pressure systolic 130 mm Hg 11/04/2024 Weight 225.6 lbs 11/04/2024 BMI 36.41 kg/m2 11/04/2024 Encounters Encounter Location Date Provider [facility] [address] [id number] 12/01/2023 Mitch Gillette Athscalma heart disease of [place] coronary artery w/o ang pctrs I25.10 ; Type 2 diabetes mellitus without complications E11.9 ; Mixed hyperlipidemia E78.2 ; Arthropathy M12.9 ; Essential hypertension I10 ; Simple chronic bronchitis J41.0 ; Degenerative disc disease, lumbar M51.36 ; Anxiety associated with depression F41.8 and Chronic diarrhea K52.9 [facility] [address] [place] [id number] 04/01/2024 Mitch Gillette Type 2 diabetes andreina itus without complications E11.9 ; Anxiety associated with depression F41.8 ; Essential hypertension I10 ; Degenerative disc disease, lumbar M51.36 ; Other chronic pain G89.29 ; Simple chronic bronchitis J41.0 and Frequent diarrhea R19.7 [facility] [address] [place] [id number] 07/01/2024 Mitch Gillette Type 2 diabetes andreina itus without complications E11.9 ; Atherosclerosis of [place] coronary artery of [place] heart with stable angina pectoris I25.119 ; Myalgia M79.1 ; Essential hypertension I10 and Other chronic pain G89.29 [facility] [address] [place] [id number] 11/04/2024 Mitch Gillette Type 2 diabetes andreina [...] mellitus with other specified complication, unspecified whether terminal operations manager insulin use E11.69 [facility] [address] [place] [id number] 03/25/2024 Mitch Gillette Arthropathy M12.9 [facility] [address] [place] [id number] 04/08/2024 Mitch Gillette Assessments Encounter Date Diagnosis (ICD Code) Assessment Notes Treatment Notes Treatment Clinical Notes Section Notes 12/01/2023 Type 2 diabetes mellitus without complications (ICD-10 - E11.9) 03/25/2024 Arthropathy (ICD-10 - M12.9) 04/01/2024 Type 2 diabetes mellitus without complications (ICD-10 - E11.9) 12/01/2023 Athscl heart disease of [place] coronary artery w/o ang pctrs (ICD-10 - I25.10) 07/01/2024 Type 2 diabetes mellitus without complications (ICD-10 - E11.9) 07/01/2024 Atherosclerosis of [place] coronary artery of [place] heart with stable angina pectoris (ICD-10 - I25.119) 11/04/2024 Type 2 diabetes mellitus without complications (ICD-10 - E11.9) 11/04/2024 Carotid stenosis, bilateral (ICD-10 - I65.23) 11/04/2024 Mixed hyperlipidemia (ICD-10 - E78.2) 07/01/2024 Myalgia (ICD-10 - M79.1) 04/01/2024 Anxiety associated with depression (ICD-10 - F41.8) 12/01/2023 Mixed hyperlipidemia (ICD-10 - E78.2) 12/01/2023 Arthropathy (ICD-10 - M12.9) 04/01/2024 Essential hypertension (ICD-10 - I10) 07/01/2024 Essential hypertension (ICD-10 - I10) 11/04/2024 Essential hypertension (ICD-10 - I10) 11/04/2024 Other chronic pain (ICD-10 - G89.29) 07/01/2024 Other chronic pain (ICD-10 - G89.29) 04/01/2024 Degenerative disc disease, lumbar (ICD-10 - M51.36) 12/01/2023 Essential hypertension (ICD-10 - I10) 12/01/2023 Simple chronic bronchitis (ICD-10 - J41.0) 04/01/2024 Other chronic pain (ICD-10 - G89.29) 11/04/2024 Degenerative disc disease, lumbar (ICD-10 - M51.36) 11/04/2024 Obstructive sleep apnea (ICD-10 - G47.33) 12/01/2023 Degenerative disc disease, lumbar (ICD-10 - M51.36) 04/01/2024 Simple chronic bronchitis (ICD-10 - J41.0) 12/01/2023 Anxiety associated with depression (ICD-10 - F41.8) 04/01/2024 Frequent diarrhea (ICD-10 - R19.7) Align one a day, Miralax 17 gm daily 11/04/2024 Simple chronic bronchitis (ICD-10 - J41.0) 11/04/2024 Type 2 diabetes mellitus with other circulatory complications (ICD-10 - E11.59) 12/01/2023 Chronic diarrhea (ICD-10 - K52.9) 11/04/2024 Type 2 diabetes mellitus with other specified complication, unspecified whether terminal operations manager insulin use (ICD-10 - E11.69) Plan Of Treatment Pending Test Test Name Order Date EMG/NCV 09/04/2023 Next Appt Details Provider Name:Mitch Bean er, 03/14/2025 09:30:00 AM, [address], [address], [place], [phone], Insurance Providers Payer Name Payer Address Payer Phone Subscriber Number Group Number Insured Name Patient Relationship to Insured Coverage Start Date Coverage End Date MEDICARE PART B [address] [address] [place] [address] [phone] [id number] Self - patient is the insured [employer] [address] [place] [phone] [phone] [id number] PRABHJOT COONEY Self - patient is the insured Medications Administered Medication Instructions Date of Administration Dosage Notes B-12 07/07/2010 1 mL B-12 01/20/2015 1 mL Dexamethasone 01/31/2017 1 mL Dexamethasone 05/09/2018 1 mL Medical (General) History Medical History History ICD Code Coronary Artery Disease hyperlipidemia fibromyalgia BPH elevated PSA-subsequent prostate Ca tob addiction- quit 2001 ulcerative colitis 03/11 Pneumovac Type 2 diabetes, 10/201210/03/13 Cardiolyte GXT 65% EF, neg study 02/16/2021 COVID 19 infection, Regen-Cov infusion August 2024 [facility] cardiac evaluation, GXT, ec ho, MRI Surgical History Surgery Date(Month/Year) fifth digit left hand repair 1984 prostate exploratory and biopsy 06/07/2004 appendectomy 1956 circumcision 1946 cardiac catheterization 05/14/07 CABG, [place] of [place], SVG of RCA 05/14/07 heart cath 04-21-08; 06/2015 prostatectomy- [facility] 03/26/12 teeth removed 03/14 Heart Cath- [facility] 01/14 Neg colonoscopy, Dr. Vale 2007 bilateral iridectomies October-Nov 2021 Hospitalization History Reason Date(Month/Year) [facility] ER chestpain 05/2010 ER triquetral fracture 11/02/09 see above [facility]- SOA 08/06-08/10/15 [facility]- Prostatectomy 03/26/12
--- NOTE | 2024-11-11 08:50 | EXP.PAIN.SOA ---
[facility] Disclaimer: The information contained in this section may have been updated after the patient was seen, as this information can be updated by other users. Medical History Bilateral cataracts Prostate cancer Surgical History History of appendectomy Status post double vessel coronary artery bypass Family History Other Cancer Coronary artery disease Hypertension Stroke Social History Smoking Status: Former smoker alcohol intake: never substance use type: denies use current occupational status: other Travel in the last 8 weeks?: None household members: spouse housing: house marital status: number of children: 3 caffeine: No PM Subjective & Objective Subjective Subjective:: Patient is a pleasant 79-year-old male who presents today for follow-up. Today he rates his pain as 7 out of 10. Patient denies any new falls or injuries. He does state he still has his chronic back pain but also has the constant left hip pain. Patient does state that it just seems like it is continuing to get worse. Patient was getting a workup related to his heart and he has been told that everything came back good. He states he did have a slight blockage but nothing that they would intervene on at this point. Patient has had multiple injections in the past and they do provide significant improvement however do vary on how frequently it last. Patient has radicular symptoms in both his upper extremities and lower. Patient is prescribed tramadol from an outside provider. He has been tried on compounded cream and pregabalin 25 mg at bedtime from our office. He denies any side effects. He does feel like the Voltaren works better than the compounded cream. We have discussed the possibility of intrathecal pain pump trial as well as spinal cord stimulator trial in the past. He does state that he would like to proceed forward with this option. His Jorje has been reviewed and is appropriate. Review of Systems: General: No recent weight changes, no fever, no sleep disturbances Respiratory: No cough, no shortness of air, no recurring pulmonary infections Cardiovascular/peripheral vascular: No chest pain, no palpitations, no edema, no shortness of breath Gastrointestinal: No new onset incontinence, normal bowel movements reported Genitourinary: No new onset incontinence Musculoskeletal: Chronic back pain Psychiatric: [Normal mood/affect] Neurological: [Denies weakness in extremities], [denies balance issues] Pain at rest (0-10 scale): 7 Objective Objective:: Physical Exam: General: Alert and oriented x3, no acute distress, pleasant and cooperative Lungs: Respirations even and unlabored, symmetrical chest expansion Eyes: PERRL Musculoskeletal: Flexion and extension of cervical [spine] somewhat guarded secondary to pain, [antalgic gait noted] Neurological: Speech clear, no gross sensory deficit Has patient had previous pain injection?: No Conservative treatment options previously tried: Home exercise plan Length of treatment: Longer than 12 weeks Meds Home Medications and Allergies Home Medications ?Medication ?Instructions ?Recorded ?Confirmed ?Type B-complex with vitamin C (Super B 1 tab PO .q day Supplement 06/06/17 09/30/24 History Complex-Vitamin C tablet) aspirin 81 mg tablet,delayed 81 mg PO ONCE heart. 06/06/17 09/30/24 History release cholecalciferol (vitamin D3) 50 2,000 unit PO ONCE Supplement 06/06/17 09/30/24 History mcg (2,000 unit) capsule clopidogrel 75 mg tablet 75 mg PO ONCE heart. 06/06/17 09/30/24 History diclofenac sodium 1 % topical gel 2 g topical QID , 06/06/17 09/30/24 History (Voltaren) nitroglycerin 0.4 mg sublingual 0.4 mg sublingual Q5M PRN cp 06/06/17 09/30/24 History tablet omeprazole magnesium 20 mg 20 mg PO ONCE stomach 06/06/17 09/30/24 History capsule,delayed release tramadol 37.5 mg-acetaminophen 325 1 tab PO Q4-6H PRN pain 06/06/17 09/30/24 History mg tablet (Ultracet) albuterol sulfate 90 mcg/actuation 2 inh inhalation Q6H PRN Breathing 01/05/23 09/30/24 History breath activated powder inhaler Problems donepezil 5 mg tablet 5 mg PO DAILY 01/05/23 09/30/24 History fluticasone 250 mcg-salmeterol 50 1 inh inhalation BID PRN Breathing 01/05/23 09/30/24 History mcg/dose blistr powdr for Problems inhalation (Advair Diskus) furosemide 40 mg tablet 40 mg PO BID 01/05/23 09/30/24 History isosorbide mononitrate 30 mg 30 mg PO DAILY Chest Pain 01/05/23 09/30/24 History tablet,extended release 24 hr losartan 50 mg tablet 50 mg PO BID 01/05/23 09/30/24 History metformin 500 mg tablet 500 mg PO DAILY 01/05/23 09/30/24 History rosuvastatin 40 mg tablet 40 mg PO DAILY 01/05/23 09/30/24 History spironolactone 25 mg tablet 25 mg PO DAILY 01/05/23 09/30/24 History gabapentin 100 mg capsule See Rx Instructions PO .COMPLEX 04/27/23 09/30/24 History pregabalin 50 mg capsule 50 mg PO BID #28 caps 02/12/24 09/30/24 Rx pregabalin 25 mg capsule 25 mg PO HS #14 caps 05/22/24 09/30/24 Rx New Prescriptions to Start Prescriptions: Allergies Allergy/AdvReac Type Severity Reaction Status Date / Time Penicillins Allergy Intermediate I-RASH Verified 08/23/24 09:25 codeine Allergy Unknown AFFECTS Verified 08/23/24 09:25 HEART Assessment and Plan *Assessment and plan (1) Degenerative disc disease, cervical: Status: Acute Category: Medical Code(s): M50.30 - Other cervical disc degeneration, unspecified cervical region (2) Lumbar spondylosis: Status: Acute Category: Medical Code(s): M47.816 - Spondylosis without myelopathy or radiculopathy, lumbar region (3) Lumbar facet arthropathy: Status: Acute Category: Medical Code(s): M47.816 - Spondylosis without myelopathy or radiculopathy, lumbar region (4) Greater trochanteric bursitis of both hips: Status: Acute Category: Medical Code(s): M70.61 - Trochanteric bursitis, right hip; M70.62 - Trochanteric bursitis, left hip (5) Chronic pain syndrome: Status: Acute Category: Medical Code(s): G89.4 - Chronic pain syndrome (6) Degenerative disc disease, lumbar: Status: Acute Category: Medical Code(s): M51.369 - Other intervertebral disc degeneration, lumbar region without mention of lumbar back pain or lower extremity pain (7) Lumbar radiculopathy: Status: Acute Category: Medical Code(s): M54.16 - Radiculopathy, lumbar region Plan I did review over with the patient the risk and benefits of the intrathecal pump trial and he would like to proceed forward with this plan of care. Patient has already had a psychological evaluation in July and was deemed an appropriate candidate for this device. Patient will be sent to Dr. Andres shepherd neurosurgery for evaluation of surgical intervention. We will plan on following up with him in 1 month following this referral and to proceed forward with the pump trial. Patient agrees with this plan of care. Patient has tried and failed conservative therapy. Pt will return to clinic in 1 month. Patient has been instructed to contact the clinic with any concerns before the next appointment. Dr. Patel has reviewed this note and agrees with this plan of care. This note was dictated using voice recognition software and make contain errors or omissions. All injections are used with Lidocaine, Bupivacaine and dexamethasone. Occasionally urine drug screen is needed to verify patient's compliance with our office pain contract. This is ordered based off specific treatments related to chronic pain with the potential to abuse certain medications.
[2024-11-11 09:21] VITALS: BP 131/66; PULSE 68; RESP 14; O2SAT 97; BMI 35.5
== END 2024-11-11 23:59 ==
LOC: SC.PAIN 08:29
PROVIDERS: PCP Family Medicine; Visit Provider Nurse Practitioner Family
DX: M50.30 Other cervical disc degeneration, unspecified cervical region (principal); M47.816 Spondylosis without myelopathy or radiculopathy, lumbar region; M51.16 Intervertebral disc disorders with radiculopathy, lumbar region; M70.61 Trochanteric bursitis, right hip; M70.62 Trochanteric bursitis, left hip; G89.4 Chronic pain syndrome; Z79.899 Other long term (current) drug therapy
CPT/HCPCS: 99212; G0463